=== PATIENT | female | born 1950 | race Caucasian/White ===

== ENCOUNTER 2019-02-16 10:00 | Emergency (ER) | payer MEDICARE, OTHER, SELFPAY ==
[2019-02-16 10:01] VITALS: BP 143/85; PULSE 88; RESP 18; TEMP 36.6; O2SAT 97; BMI 31.4
--- NOTE | 2019-02-16 10:16 | EKG12_ITS ---
Test Reason : AB LABS Blood Pressure : / mmHG Vent. Rate : 071 BPM Atrial Rate : 071 BPM P-R Int : 226 ms QRS Dur : 078 ms QT Int : 402 ms P-R-T Axes : 071 072 065 degrees QTc Int : 436 ms Sinus rhythm with 1st degree A-V block Otherwise normal ECG Confirmed by KAMILA BOLES, RAJINDER ([id number]), photograph editor LOGAN HAIRSTON ([id number]) on 02/19/2019 1:10:05 PM Referred By: QUYNH Confirmed By:RAJINDER TREVIÑO MD
--- NOTE | 2019-02-16 10:16 | CT_ITS ---
STUDY: CTA CHEST REASON FOR EXAM: Female, 68 years old. Pleuritic chest pain, elevated D-dimer, SOB, COPD-Home O2, prev 20 yr smoker at 1 ppd, quite smoking 3 yrs ago RADIATION DOSAGE (If Supplied By Facility): CTDIvol = ( 8.89 ) mGy, DLP = ( 338.08 ) mGycm TECHNIQUE: The examination was performed with the intravenous administration of IV 100mL Isovue-370. Post-processing of the angiographic images was performed, with multiplanar reformation and 3D reconstruction. Individualized dose optimization techniques were used for this CT. COMPARISON: None. FINDINGS: Normal enhancement of the main pulmonary artery and right and left pulmonary arteries. Normal enhancement of the bilateral peripheral pulmonary arteries. There is no demonstrated pulmonary embolism. There is atherosclerotic calcification of the aortic arch with tortuosity. There is no demonstrated aortic dissection. Normal heart and pericardium. There are calcifications of the coronary arteries. Normal mediastinum. Normal hilar regions. Normal visualized trachea and bronchi. Lungs are hyperexpanded with moderately severe bolus emphysema of the right more than left upper lung zones. There is scattered fibrotic changes. Normal pleura. Normal chest wall structures. There are degenerative changes of thoracic spine. There is a small hiatal hernia. CT/CTA Chest W/WO Contrast IMPRESSION: 1. No central or segmental pulmonary embolism. 2. Bullous emphysema with scattered fibrotic changes. 3. Atherosclerosis including coronary arteries. Electronically Signed: Real Pasotr MD (Brooks) at 13:32 EST , Service support ,
--- NOTE | 2019-02-16 10:18 | ED.DCSUM_ITS ---
History of Present Illness Chief Complaint: Abn Labs Informant: Patient, Spouse/S.O. - and pulm care provider Onset: Weeks - 2-3 Activity at onset: Unknown Timing: Continuous Quality: Pain Location: Left Chest Current Severity: Mild Maximum Severity: Moderate Worsened By: Breathing, Coughing - and yawning Relieved By: Rest Associated Symptoms: Dyspnea - wheezing, Cough Narrative: Patient had a COPD exacerbation 1 month ago or more, was treated with Augmentin, came back to the office and was treated with Levaquin, finished that just a little over 2 weeks ago. The Levaquin really helped but that when she finished that she started getting worse and having pleuritic pain in her left upper back and chest. That went away, and then became left chest pleuritic discomfort without radiation that has persisted. She has been having more COPD symptoms with productive cough and wheezing, they have not been severe but present for 2 weeks or more. She has had no more courses of antibiotics since. Yesterday she was seen in the office and had a d-dimer that resulted elevated at 790, even when corrected for age, and for that reason she was sent to the ER for CT angiography which they were unable to obtain today on Tuesday as an outpatient, for fear of pulmonary embolus that would go undetected over the weekend. She has never had one, or a DVT, before. She denies any leg pain. She has had swelling of both her legs chronically, she wears compression stockings, and she states the swelling has been a little worse lately so she started taking her Lasix again. She did not take it yet this morning. Also as an outpatient, a proBNP was obtained and is 219, well within normal limits especially for someone her age. She does not have a history of heart disease that she knows of. She takes daily baby aspirin but no anticoagulants. She denies any recent syncopal episodes. When she has been short of breath, she has been wheezing. Exertion makes it worse, rest makes that better. - Past Medical History (1) COPD (chronic obstructive pulmonary disease) Status: Chronic Comment: 2 L home oxygen (2) HLD (hyperlipidemia) Status: Chronic (3) HTN (hypertension) Status: Chronic Past Medical History - Allergies and Home Meds Allergies/Adverse Reactions: Allergies atorvastatin [From Lipitor] Allergy (Verified 02/16/19 10:03) Unknown lorazepam [From Ativan] Allergy (Verified 02/16/19 10:03) Unknown mometasone furoate [From Nasonex] Allergy (Verified 02/16/19 10:03) Unknown paroxetine [From Paxil] Allergy (Verified 02/16/19 10:03) Unknown Sulfa (Sulfonamide Antibiotics) Allergy (Verified 02/16/19 10:03) Unknown DOES NOT REMEMBER Allergy (Uncoded 02/16/19 10:03) Unknown Primary Care Physician: Phyllis Smith MD [Primary Care Provider] - Doctors: [facility] pulmonology Surgical History: hysterectomy Lives: Spouse/ Significant Other Smoking Status: Former smoker Drugs: None - Family History Maternal Family History: Reports: Cancer Sibling Family History: Reports: Heart Disease Review of Systems General: Denies: Chills, Fever, Sweats Eyes: Denies: Visual changes - bilaterally, Diplopia ENT: Denies: Rhinorrhea, Sore throat Cardiovascular: Reports: Chest pain. Denies: Palpitations, Heart racing Respiratory: Reports: Dyspnea, Cough, Sputum - milky when present, Dyspnea on exertion Gastrointestinal: Denies: Abdominal pain, Nausea, Vomiting, Diarrhea, Melena, Hematochezia Genitourinary: Denies: Dysuria, Hematuria, Frequency Musculoskeletal: Reports: Swelling - BLE, chronic. Denies: Neck pain, Back pain, Extremity Pain Skin: Denies: Rash, Wounds Neurological: Denies: Headache, Weakness, Numbness Physical Exam Vital Signs/Narrative: Vital Signs Temp Pulse Resp BP Pulse Ox 02/16/19 10:01 98 F 88 18 143/85 H 97 Inital Vital Signs reviewed: Yes General: Well nourished, Well developed, No Acute Distress Head: Normocephalic, Atraumatic Eyes: Perrl, EOMI ENT: Moist mucous membranes, No rhinorrhea Neck: Supple, Nontender, No lymphadenopathy, No JVD Cardiovascular: Regular rate, Regular rhythm, No murmurs Respiratory: No distress, CTA bilaterally, Chest nontender Abdomen: Soft, Nontender, Nondistended, Normal bowel sounds Back: Nontender, Normal Inspection Extremities: Nontender, Edema - 2+ BLE to knees; comp stockings in place. Negative for: Calf Tenderness Skin: Normal color, No rash, No Trauma Neurological: Alert, Oriented x3, Cranial nerves II-XII grossly intact, Normal Strength, Normal Sensation Psychological: Normal affect, Normal Mood Diagnostic/Tx/Re-eval Impressions Chest CTA 02/16/19 10:16 IMPRESSION: 1. No central or segmental pulmonary embolism. 2. Bullous emphysema with scattered fibrotic changes. 3. Atherosclerosis including coronary arteries. Electronically Signed: Real Pastor MD (Brooks) at 13:32 EST , Service support , 02/16/19 10:16 CTA Chest W/WO Contrast [CT] Stat Laboratory Results 02/16/19 02/16/19 10:25 10:25 WBC 6.5 RBC 4.22 Hgb 12.9 Hct 37.1 MCV 87.9 MCH 30.6 MCHC 34.8 RDW Std Deviation 41.1 RDW Coeff of Caroline 12.8 Plt Count 281 MPV 9.3 Immature Gran % (Auto) 0.300 Neut % (Auto) 66.4 Lymph % (Auto) 20.2 [place] % (Auto) 9.3 Eos % (Auto) 2.6 Baso % (Auto) 1.2 H Absolute Neuts (auto) 4.3 Absolute Lymphs (auto) 1.32 Nucleated RBC % 0 Sodium 135 L Potassium 2.9 L Chloride 96 L Carbon Dioxide 35.0 H Anion Gap 4 L BUN 14 Creatinine 0.94 Estim Creat Clear Calc 48.78 Est GFR (MDRD) Af Amer 76 Est GFR (MDRD) Non-Af 62 BUN/Creatinine Ratio 14.8 Glucose 105 Calcium 9.6 Troponin I < 0.015 - Rhythm Strip Rhythm Strip: Sinus Rhythm Rate: 70 Ectopy: None - EKG Initial EKG Interpretation: Sinus Rhythm, No Acute Injury Pattern, AV Block - 1st deg Prior: Changed - 1st deg AVB new - Medical Decision Making CT angiography was performed and showed no central pulmonary embolus. Discussed with pulmonary PA who patient follows with as an outpatient, they will send in prescriptions for antibiotics and prednisone and follow-up with the patient as an outpatient. She is comfortable with this plan, her vital signs are stable she is not hypoxic, and will follow-up. No signs or symptoms of an acute unilateral DVT at this time. If outpatient duplex ultrasounds are desired, they may be obtained as an outpatient. ED Disposition - Plan for ED Patient: Disposition: Home or Assisted Living Diagnosis: Left-sided chest pain, COPD with exacerbation Instructions: Copd Flare Referrals: Rick Barth MD [NON-STAFF] - (call for follow up)
[2019-02-16 10:29] VITALS: O2SAT 97
[2019-02-16 10:42] LABS: Absolute Lymphocyte Count 1.32 X10^3/uL (0.83-4.51); Absolute Neutrophil Count 4.3 X10^3/uL (2.0-7.7); Basophil# 0.08 X10^3/uL; Basophil% 1.2 % (0-1); Eosinophil# 0.17 X10^3/uL; Eosinophils% 2.6 % (0-5); Hematocrit 37.1 % (37-47); Hemoglobin 12.9 g/dL (12.0-15.0); Lymphocyte # 1.32 X10^3/ul (4.0); Lymphocyte % 20.2 % (19-41); Mean Corp Hgb Conc 34.8 g/dL (32-36); Mean Corpuscular Hgb 30.6 pg (27.0-32.0); Mean Corpuscular Volume 87.9 fL (81-99); Mean Platelet Vol. 9.3 fl (6.2-12.0); Monocyte# 0.61 X10^3/uL; Monocyte% 9.3 % (0-10); NRBC Flagged by Analyzer 0 % (0-5); Neutrophil # 4.33 X10^3/uL (2.7-7.7); Neutrophil % 66.4 % (47-70); Platelet Count 281 K/mm3 (150-450); RBC Distribution Width CV 12.8 % (11.6-14.6); RBC Distribution Width SD 41.1 fl (35.1-43.9); Red Blood Count 4.22 M/mm3 (4.2-5.4); White Blood Count 6.5 K/mm3 (4.4-11.0)
[2019-02-16 11:00] LABS: Anion Gap 4 (5-15); BUN 14 mg/dL (7-18); BUN/Creat Ratio 14.8 RATIO (10-20); Calcium,Total 9.6 mg/dL (8.5-10.1); Chloride 96 mmol/L (98-107); Creatinine, Serum 0.94 mg/dL (0.55-1.02); EST Glomerular Filtration Rate 62 mL/min (>60); Est Glom Filt Rate - Afr Amer 76 mL/min (>60); Estimated Creatinine Clearance 48.78 ml/min; Glucose 105 mg/dL (74-106); Potassium 2.9 mmol/L (3.5-5.1); Sodium Level 135 mmol/L (136-145)
[2019-02-16 11:03] VITALS: BP 135/63; PULSE 74; RESP 20; TEMP 36.9; O2SAT 94
[2019-02-16 12:03] VITALS: BP 128/60; PULSE 69; RESP 19; TEMP 36.8; O2SAT 94
[2019-02-16 13:00] VITALS: BP 138/66; PULSE 71; RESP 13; TEMP 36.9; O2SAT 96
[2019-02-16 14:17] VITALS: BP 128/63; PULSE 63; RESP 16; O2SAT 98
== END 2019-02-16 14:18 | disposition home or self-care (01) ==
PROVIDERS: Emergency Provider Emergency Medicine; Family Provider Internal Medicine; PCP Internal Medicine
DX: J44.1 Chronic obstructive pulmonary disease with (acute) exacerbation (principal); E78.5 Hyperlipidemia, unspecified; I10 Essential (primary) hypertension; Z79.82 Long term (current) use of aspirin; Z82.49 Family history of ischemic heart disease and other diseases of the circulatory system; Z87.891 Personal history of nicotine dependence; Z88.2 Allergy status to sulfonamides; Z90.710 Acquired absence of both cervix and uterus
CPT/HCPCS: 71275; 80048; 84484; 85025; 93005; 96360; 96361; 99283; J7030; Q9967; A4216

== ENCOUNTER 2020-04-17 12:08 | Outpatient (RCR) | payer MEDICARE, OTHER, SELFPAY ==
[2020-04-17] MEDS: COVID-19 VACC, MRNA(PFIZER)/PF 30 MCG/0.3 ML SYRINGE IM (18:30)
[2020-05-08] MEDS: COVID-19 VACC, MRNA(PFIZER)/PF 30 MCG/0.3 ML SYRINGE IM (18:05)
== END 2020-04-17 23:59 ==
LOC: IMMUN 12:08
PROVIDERS: PCP Internal Medicine; Visit Provider Family Medicine
DX: Z23 Encounter for immunization (principal)
CPT/HCPCS: 0001A; 0002A; 91300

== ENCOUNTER 2020-05-19 20:10 | Observation (INO) | payer MEDICARE, OTHER, SELFPAY ==
[2020-05-19 20:11] VITALS: BP 128/57; PULSE 42; RESP 18; TEMP 36.4; O2SAT 99; BMI 30.9
--- NOTE | 2020-05-19 20:48 | EKG12_ITS ---
Test Reason : BEENA Blood Pressure : / mmHG Vent. Rate : 046 BPM Atrial Rate : 057 BPM P-R Int : 000 ms QRS Dur : 070 ms QT Int : 450 ms P-R-T Axes : 000 091 071 degrees QTc Int : 393 ms Sinus Bradycardia Rightward axis Low voltage QRS Abnormal ECG Confirmed by PERRI BOLES, SOTERO ([id number]), digital editor BILLIE ACEVEDO ([id number]) on 05/23/2020 2:47:18 PM Referred By: RETA Confirmed By:TARSHA RAYO MD
--- NOTE | 2020-05-19 20:53 | ED.VIS.GEN ---
History of Present Illness Chief Complaint: Dizziness Informant: Patient Narrative: 69-year-old female presenting with chest heaviness in the left shoulder and her upper back. She states this started this evening about dinnertime when she was sitting at the table. Patient states she had similar symptoms when she had her first COVID-19 shot on . Used symptoms returned again on the . They have been intermittent since that time. She states that she feels lightheaded when she stands. She has not had a fall. She has had this chest heaviness on and off when she gets palpitations and lightheadedness. Patient denies previous history of MT or cardiac problems. Patient had fever, chills, cough. She does not have history of DVT/PE. She recently had CTA of the chest to rule out PE in February because she had an elevated D-dimer outpatient. Not anticoagulated. Past Medical History - Allergies and Home Meds Allergies/Adverse Reactions: Allergies atorvastatin [From Lipitor] Allergy (Verified 05/19/20 20:11) Unknown lorazepam [From Ativan] Allergy (Verified 05/19/20 20:11) Unknown mometasone furoate [From Nasonex] Allergy (Verified 05/19/20 20:11) Unknown paroxetine [From Paxil] Allergy (Verified 05/19/20 20:11) Unknown Sulfa (Sulfonamide Antibiotics) Allergy (Verified 05/19/20 20:11) Unknown DOES NOT REMEMBER Allergy (Uncoded 05/19/20 20:11) Unknown Primary Care Physician: Phyllis Smith MD [Primary Care Provider] - Prior records reviewed: Yes Past Medical History: - - Prediabetes, hypertension, COPD, hyperlipidemia Surgical History: hysterectomy Lives: Spouse/ Significant Other Smoking Status: Former smoker Alcohol: None Drugs: None - Family History Maternal Family History: Reports: Cancer Sibling Family History: Reports: Heart Disease Review of Systems General: Denies: Chills, Fever, Sweats Eyes: Denies: Visual changes - bilaterally, Diplopia ENT: Denies: Rhinorrhea, Sore throat Cardiovascular: Reports: Chest pain, Palpitations Respiratory: Denies: Dyspnea, Cough, Dyspnea on exertion Gastrointestinal: Denies: Abdominal pain, Nausea, Vomiting, Diarrhea, Melena, Hematochezia Genitourinary: Denies: Dysuria, Hematuria, Frequency Musculoskeletal: Denies: Back pain, Extremity Pain Skin: Denies: Rash, Wounds Neurological: Denies: Headache, Weakness, Numbness Psych: Denies: Depression, Anxiety, Suicidal thoughts, Suicidal ideations, -, - Endocrine: Denies: Polyuria, Polydipsia, Heat intolerance, Cold intolerance, -, - Physical Exam Vital Signs/Narrative: Vital Signs Temp Pulse Resp BP Pulse Ox 05/19/20 20:11 97.6 F L 42 L 18 128/57 H 99 Inital Vital Signs reviewed: Yes General: Well nourished, No Acute Distress Head: Normocephalic, Atraumatic Eyes: Perrl, EOMI ENT: Moist mucous membranes, No rhinorrhea Cardiovascular: Bradycardia Respiratory: No distress, CTA bilaterally Abdomen: Soft, Nontender Extremities: Nontender. Negative for: Calf Tenderness Skin: Normal color, No rash. Negative for: Cyanosis, Diaphoresis Neurological: Alert, Oriented x3, Cranial nerves II-XII grossly intact Psychological: Normal affect, Normal Mood Diagnostic/Tx/Re-eval Clinical Impression(s) from Imaging Studies Chest X-Ray 05/19/20 20:54 IMPRESSION: No acute radiographic abnormalities. Emphysematous changes. Electronically Signed: Cosme Ewing MD at 21:14 EDT Tel , Service support , Laboratory Data 05/19/20 05/19/20 05/19/20 20:30 20:30 20:30 WBC 11.6 H RBC 4.57 Hgb 14.0 Hct 41.1 MCV 89.9 MCH 30.6 MCHC 34.1 RDW Std Deviation 42.4 RDW Coeff of Caroline 12.8 Plt Count 273 MPV 9.8 Immature Gran % (Auto) 0.300 Neut % (Auto) 61.1 Lymph % (Auto) 25.8 [place] % (Auto) 8.6 Eos % (Auto) 3.1 Baso % (Auto) 1.1 H Absolute Neuts (auto) 7.1 Absolute Lymphs (auto) 2.99 Nucleated RBC % 0 Sodium 130 L Potassium 4.4 Chloride 97 L Carbon Dioxide 27.0 Anion Gap 6 BUN 29 H Creatinine 1.18 H Estim Creat Clear Calc 38.31 Est GFR (MDRD) Af Amer 58 L Est GFR (MDRD) Non-Af 48 L BUN/Creatinine Ratio 24.6 H Glucose 169 H Calcium 9.5 Magnesium 2.1 Troponin I < 0.015 B-Natriuretic Peptide 197.5 H - Medical Decision Making 69-year-old female presenting with palpitations. She states that these palpitations seem to correlate with the timing of her COVID-19 shots. She is not had this problem in the past. She has had some chest pressure associated with the symptoms. Patient had CTA in February which showed some coronary artery atherosclerosis but no PEs or dissections. She has a history of DVT/PE. I have low suspicion for this now. Patient's EKG performed on arrival shows a junctional rhythm at [address] elevation or depression interpreted by myself. Chest x-ray shows no acute cardiopulmonary process as interpreted by myself. Radiology does agree. White blood cell count 11.6, hemoglobin 14, platelets 273. BMP shows sodium 130, potassium 4.4, CO2 27, creatinine 1.18 is increased from February when it was 0.94, GFR 48 and was 62 in February. Magnesium 2.1. Troponin is negative. BNP 197 with normal chest x-ray. Patient's heart score is 6. Given this I think the patient needs to be admitted for her chest pain. She also has a junctional rhythm, palpitations and lightheadedness. I spoke with Dr. Ayala who recommended keeping the patient off of her metoprolol and Cardizem and see if this changes her vision and he will determine the course tomorrow. Patient took her metoprolol tonight however she took her Cardizem and HCTZ yesterday morning. If it is medication induced it should clear by tomorrow. Patient counseled on findings and course of action. She is comfortable with staying in the hospital. Patient stable on admission. Impression: 1. Junctional heart rhythm 2. Chest pain 3. Lightheadedness ED Disposition - Plan for ED Patient: Referrals: Phyllis Smith MD [Primary Care Provider] -
--- NOTE | 2020-05-19 20:54 | RAD_ITS ---
INDICATION: chest pain EXAMINATION/TECHNIQUE: X-RAY - XR Chest 1 View COMPARISON: 12/16/2016. FINDINGS: Emphysematous changes. Lungs are otherwise clear. Tortuous and calcified thoracic aorta. The heart is not enlarged. No pleural effusion or pneumothorax. No acute osseous abnormalities. RAD/Chest 1 View (Portable) IMPRESSION: No acute radiographic abnormalities. Emphysematous changes. Electronically Signed: Cosme Ewing MD at 21:14 EDT Tel , Service support ,
[2020-05-19 20:58] LABS: Absolute Lymphocyte Count 2.99 X10^3/uL (0.83-4.51); Absolute Neutrophil Count 7.1 X10^3/uL (2.0-7.7); Basophil# 0.13 X10^3/uL; Basophil% 1.1 % (0-1); Eosinophil# 0.36 X10^3/uL; Eosinophils% 3.1 % (0-5); Hematocrit 41.1 % (37-47); Lymphocyte # 2.99 X10^3/ul (4.0); Lymphocyte % 25.8 % (19-41); Mean Corp Hgb Conc 34.1 g/dL (32-36); Mean Corpuscular Hgb 30.6 pg (27.0-32.0); Mean Corpuscular Volume 89.9 fL (81-99); Mean Platelet Vol. 9.8 fl (6.2-12.0); Monocyte% 8.6 % (0-10); NRBC Flagged by Analyzer 0 % (0-5); Neutrophil # 7.07 X10^3/uL (2.7-7.7); Neutrophil % 61.1 % (47-70); Platelet Count 273 K/mm3 (150-450); RBC Distribution Width CV 12.8 % (11.6-14.6); RBC Distribution Width SD 42.4 fl (35.1-43.9); Red Blood Count 4.57 M/mm3 (4.2-5.4); White Blood Count 11.6 K/mm3 (4.4-11.0)
[2020-05-19] MEDS: Aspirin 81 MG TAB.CHEW 324 MG PO (21:00)
[2020-05-19 21:18] LABS: Anion Gap 6 (5-15); BNP,B-Type NATRIURETIC PEPTIDE 197.5 pg/mL (0-100); BUN 29 mg/dL (7-18); BUN/Creat Ratio 24.6 RATIO (10-20); Calcium,Total 9.5 mg/dL (8.5-10.1); Chloride 97 mmol/L (98-107); Creatinine, Serum 1.18 mg/dL (0.55-1.02); EST Glomerular Filtration Rate 48 mL/min (>60); Est Glom Filt Rate - Afr Amer 58 mL/min (>60); Estimated Creatinine Clearance 38.31 ml/min; Glucose 169 mg/dL (74-106); Magnesium 2.1 mg/dL (1.6-2.6); Potassium 4.4 mmol/L (3.5-5.1); Sodium Level 130 mmol/L (136-145)
[2020-05-19 22:01] VITALS: BP 128/94; PULSE 51; RESP 24; TEMP 36.4; O2SAT 96
[2020-05-19 22:15] VITALS: BP 113/67; PULSE 48; RESP 16; TEMP 36.4; O2SAT 92; BMI 32.7
--- NOTE | 2020-05-19 22:17 | PCM.HP.STD ---
<Megan Barger - Last Filed: 05/19/20 22:17> Problem List (1) Bradycardia with 41-50 beats per minute Status: Acute (2) Chest pain in adult Status: Acute (3) COPD (chronic obstructive pulmonary disease) Status: Chronic Comment: 2 L home oxygen (4) HLD (hyperlipidemia) Status: Chronic (5) HTN (hypertension) Status: Chronic History of Present Illness Date of Admission: 05/19/20 Chief Complaint: chest pain, symptomatic bradycardia The patient is a 69 year old F presents today with report of chest pressure and tightness through left chest and back and palpitations that began this evening. Patient reports similar symptoms following both of her Covid shots, with the most recent Covid injection May 12. Upon presentation to ER patient was noted to have a junctional rhythm with a heart rate of 42 with frequent ectopy. Patient has a reported medical history of hypertension, hyperlipidemia, COPD. Patient wears 2 L nasal cannula oxygen at home and currently does not have any increased O2 requirements. Patient denies fever, chills, shortness of breath, nausea, vomiting. No acute cardiopulmonary process noted on chest x-ray. Troponin is negative BNP 197 with normal chest x-ray. Heart score 6, STEFANI score 4. Patient currently resting comfortably in bed, states chest pressure is unchanged at this time. Past Medical History Past Medical History (Chronic Problems): Chronic Problems COPD (chronic obstructive pulmonary disease) (Chronic) 2 L home oxygen HLD (hyperlipidemia) (Chronic) HTN (hypertension) (Chronic) Allergies atorvastatin [From Lipitor] Allergy (Verified 05/19/20 20:11) Unknown lorazepam [From Ativan] Allergy (Verified 05/19/20 20:11) Unknown mometasone furoate [From Nasonex] Allergy (Verified 05/19/20 20:11) Unknown paroxetine [From Paxil] Allergy (Verified 05/19/20 20:11) Unknown Sulfa (Sulfonamide Antibiotics) Allergy (Verified 05/19/20 20:11) Unknown DOES NOT REMEMBER Allergy (Uncoded 05/19/20 20:11) Unknown Home Medications: Ambulatory Orders Medication Instructions Recorded Albuterol Aerosols [Ventolin 2.5 mg INHALATION Q6H PRN PRN 12/16/16 Aerosols] Aspirin [Aspirin, Baby] 81 mg PO DAILY@0800 12/16/16 Calcium Carbonate/Vitamin D3 1 each PO BID 12/16/16 [Calcium 500+D Tablet Chew] D-Methorphan/PE/Acetaminophen 1 each PO DAILY PRN 12/16/16 [Trudy-[place] Plus Sinus-Cough] Diltiazem HCl [Diltiazem 24Hr Cd] 240 mg PO DAILY 12/16/16 Hydrochlorothiazide [Hctz] 25 mg PO DAILY 12/16/16 Ipratropium [place] 0.06% 2 spray NASAL 4X/DAY 12/16/16 [ATROVENT NASAL SPRAY] Metoprolol Tartrate [Lopressor 50 mg PO BID 12/16/16 (beta kayley)] Multivit-Min/Iron/Folic/Lutein 1 each PO DAILY 12/16/16 [Centrum Silver Women Tablet] Simvastatin [Zocor] 20 mg PO QHS 12/16/16 Acetaminophen [Tylenol Tablet] 650 mg PO Q6H PRN PRN tablet 12/18/16 Guaifenesin [Mucinex] 1,200 mg PO BID #10 tablet 12/18/16 Albuterol Sulfate [Ventolin Hfa] 90 mcg IH Q4H PRN PRN 02/16/19 Cetirizine HCl [Zyrtec] 10 mg PO DAILY 02/16/19 Fluticasone/Umeclidin/Vilanter 1 ea IH DAILY 02/16/19 [Trelegy Ellipta 100-62.5-25] Furosemide [Lasix] 20 mg PO DAILY PRN 02/16/19 Montelukast [Singulair] 10 mg PO DAILY 02/16/19 Potassium Chloride 8 meq PO DAILY 02/16/19 Surgical History: hysterectomy, - - Left hand surgery, lumpectomy left breast noncancerous 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 Denies: Chest Pain Respiratory: Denies: Cough, Shortness of breath at rest, Sputum production Gastrointestinal: Denies: Abdominal Pain, Nausea, Vomiting Genitourinary: Denies: Dysuria Musculoskeletal: Denies: Joint Pain, Joint Tenderness Skin: Denies: Rash, Wounds Neurological: Denies: Numbness, Tingling, Focal weakness Psychiatric: Denies: Anxiety, Depression, Homicidal Ideations, Suicidal Ideations Hematologic/ Lymphatic: Denies: Easy Bruising, Easy Bleeding VTE Information - Inpt Only VTE Present on Admission: No VTE Mechan Device Prophylaxis: None VTE Pharm Prophylaxis ordered?: No Reason prophylaxis not ordered:: Treatment Not Indicated - Physical Exam Vitals/I&O's: Vital Signs Temp Pulse Resp BP Pulse Ox 97.6 F L 51 L 24 H 128/94 H 96 05/19/20 22:01 05/19/20 22:01 05/19/20 22:01 05/19/20 22:01 05/19/20 22:01 Oxygen Flow Rate (L/min) 2 Oxygen Delivery Method Nasal Cannula Weight: 180 lb Body Mass Index (BMI) 30.9 General: Alert, Oriented x3, Cooperative HEENT: Atraumatic, PERRLA, EOMI, Normocephalic Neck: Supple, No JVD, Negative Carotid Bruits Lungs: Clear to auscultation, Normal air movement, Diminished Cardiovascular: No murmurs, Bradycardic - Junctional with ectopy Abdomen: Bowel Sounds Present, Soft, Non Tender Extremities: No edema, Capillary Refill Less than 3 Seconds, Peripheral Pulses Normal Skin: No rashes, No breakdown Musculoskeletal: No Tenderness to Palpation of Joints or Extremities Neurological: Cranial nerves II-XII grossly intact Psych/Mental Status: Normal Affect, Appropriate Laboratory Results 05/19/20 20:30: WBC 11.6 H, RBC 4.57, Hgb 14.0, Hct 41.1, MCV 89.9, MCH 30.6, MCHC 34.1, RDW Std Deviation 42.4, RDW Coeff of Caroline 12.8, Plt Count 273, MPV 9.8, Immature Gran % (Auto) 0.300, Neut % (Auto) 61.1, Lymph % (Auto) 25.8, Casey % (Auto) 8.6, Eos % (Auto) 3.1, Baso % (Auto) 1.1 H, Absolute Neuts (auto) 7.1, Absolute Lymphs (auto) 2.99, Nucleated RBC % 0 05/19/20 20:30: Sodium 130 L, Potassium 4.4, Chloride 97 L, Carbon Dioxide 27.0, Anion Gap 6, BUN 29 H, Creatinine 1.18 H, Estim Creat Clear Calc 38.31, Est GFR (MDRD) Af Amer 58 L, Est GFR (MDRD) Non-Af 48 L, BUN/Creatinine Ratio 24.6 H, Glucose 169 H, Calcium 9.5, Magnesium 2.1, Troponin I < 0.015 05/19/20 20:30: B-Natriuretic Peptide 197.5 H Assessment/Plan All Active Problems Bradycardia with 41-50 beats per minute (Acute) Chest pain in adult (Acute) COPD with acute exacerbation (Acute) 1. Bradycardia with junctional rhythm -Admit to PCU for cardiac monitoring. -Hold metoprolol and Cardizem overnight. -Trend cardiac enzymes overnight. -Consult cardiology, will see in morning. -Mag, Phos, and TSH ordered. 2. Hypertension -Continue Lasix and hydrochlorothiazide. -Hold Cardizem and metoprolol overnight per cardiology. -Vital signs per protocol, stable at this time. 3. Hyperlipidemia -Continue simvastatin. 4. COPD -Continue home regimen of albuterol, cetirizine, ipratropium, montelukast. -Continue home O2 at 2 L, titrate per protocol to maintain pulse ox greater than 92%. DVT prophylaxis-not indicated This patient was seen by VIDHI Bautista under the supervision of Dr. Shabazz. <Joshua Shabazz - Last Filed: 05/19/20 22:40> History of Present Illness The patient is a 69 year old F [] Past Medical History Allergies atorvastatin [From Lipitor] Allergy (Verified 05/19/20 22:39) Unknown lorazepam [From Ativan] Allergy (Verified 05/19/20 22:39) Unknown mometasone furoate [From Nasonex] Allergy (Verified 05/19/20 22:39) Unknown paroxetine [From Paxil] Allergy (Verified 05/19/20 22:39) Unknown Sulfa (Sulfonamide Antibiotics) Allergy (Verified 05/19/20 22:39) Unknown DOES NOT REMEMBER Allergy (Uncoded 05/19/20 20:11) Unknown - Physical Exam Vitals/I&O's: Vital Signs Temp Pulse Resp BP Pulse Ox 97.5 F L 48 L 16 113/67 92 05/19/20 22:15 05/19/20 22:15 05/19/20 22:15 05/19/20 22:15 05/19/20 22:15 Oxygen Flow Rate (L/min) 2 Oxygen Delivery Method Nasal Cannula Weight: 190 lb 7.67 oz Body Mass Index (BMI) 32.7 Laboratory Results 05/19/20 20:30: WBC 11.6 H, RBC 4.57, Hgb 14.0, Hct 41.1, MCV 89.9, MCH 30.6, MCHC 34.1, RDW Std Deviation 42.4, RDW Coeff of Caroline 12.8, Plt Count 273, MPV 9.8, Immature Gran % (Auto) 0.300, Neut % (Auto) 61.1, Lymph % (Auto) 25.8, Casey % (Auto) 8.6, Eos % (Auto) 3.1, Baso % (Auto) 1.1 H, Absolute Neuts (auto) 7.1, Absolute Lymphs (auto) 2.99, Nucleated RBC % 0 05/19/20 20:30: Sodium 130 L, Potassium 4.4, Chloride 97 L, Carbon Dioxide 27.0, Anion Gap 6, BUN 29 H, Creatinine 1.18 H, Estim Creat Clear Calc 38.31, Est GFR (MDRD) Af Amer 58 L, Est GFR (MDRD) Non-Af 48 L, BUN/Creatinine Ratio 24.6 H, Glucose 169 H, Calcium 9.5, Magnesium 2.1, Troponin I < 0.015 05/19/20 20:30: B-Natriuretic Peptide 197.5 H 05/19/20 20:30: Phosphorus Pending Current Medications Acetaminophen (Acetaminophen 325 Mg Tablet) 650 mg PO Q6H PRN PRN PRN Reason: Pain Score 1-10/Temp > 100.7 F Albuterol Sulfate (Albuterol 2.5 Mg/3 Ml Vial.Neb.) 2.5 mg INHALATION Q2H PRN PRN PRN Reason: SOB/Wheezing Aspirin (Aspirin 81 Mg Tab.Chew) 81 mg PO DAILY@0800 MARI Calcium/Vitamin D (Calcium Carb/Vitamin D 1 Tablet Tablet) 1 tablet PO BID MARI Furosemide (Furosemide 20 Mg Tablet) 20 mg PO DAILY PRN PRN PRN Reason: EDEMA Guaifenesin (Guaifenesin 1,200 Mg Tablet) 1,200 mg PO BID MARI Hydrochlorothiazide (Hydrochlorothiazide 25 Mg Tablet) 25 mg PO DAILY [facility] Sodium Chloride () 1,000 mls @ 75 mls/hr IV .[id number] MARI Stop: 05/20/20 11:46 Insulin Human Lispro (Insulin Lispro 100 Unit/Ml Insuln.Pen) 0 unit SC ACHS MARI; Protocol Ipratropium [place] (Ipratropium [place] 0.06% Nasal [place]) 2 spray NASAL 4X/DAY MARI Loratadine (Loratadine 10 Mg Tablet) 10 mg PO DAILY MARI Melatonin (Melatonin 3 Mg Tablet) 3 mg PO QHS PRN PRN PRN Reason: INSOMNIA Montelukast Sodium (Montelukast 10 Mg Tablet) 10 mg PO DAILY MARI Morphine Sulfate (Morphine 2 Mg/Ml Syringe) 2 mg IV Q3H PRN PRN PRN Reason: Pain Score 6-10 Multivitamins/Minerals (Multivitamins,Ther W-Minerals Tablet) 1 tablet PO DAILYCM [facility] Nitroglycerin (Nitroglycerin (Inpatient Use) 0.4 Mg Tab.Subl) 0.4 mg SL Q5M PRN PRN Reason: CARDIAC/CHEST PAIN Non-Formulary Medication (Simvastatin) 20 mg PO QHS [facility] Ondansetron HCl (Ondansetron 4 Mg/2 Ml Vial) 4 mg IV Q8H PRN PRN PRN Reason: NAUSEA/VOMITING Potassium Chloride (Potassium Chloride Oral Tablet 10 Meq) 10 meq PO DAILYCM [facility] Sodium Chloride (0.9% Saline Lock 10 Ml Syringe) 10 - 40 ml IV UD PRN PRN Reason: SALINE FLUSH Assessment/Plan Patient seen and examined independently and agree with above assessment and plan
--- NOTE | 2020-05-19 22:27 | EKG12_ITS ---
Test Reason : CP ADMISSION Blood Pressure : / mmHG Vent. Rate : 053 BPM Atrial Rate : 053 BPM P-R Int : 162 ms QRS Dur : 076 ms QT Int : 460 ms P-R-T Axes : 050 084 074 degrees QTc Int : 431 ms Sinus bradycardia with Premature atrial complexes in a pattern of bigeminy Otherwise normal ECG When compared with ECG of 16-FEB-2019 10:44, Premature atrial complexes are now Present OK interval has decreased Confirmed by KAMILA BOLES, RAJINDER ([id number]), editor newspaper BILLIE ACEVEDO ([id number]) on 05/23/2020 3:06:40 PM Referred By: AZUL Confirmed By:RAJINDER TREVIÑO MD
[2020-05-19 22:28] VITALS: BMI 32.7
[2020-05-19 22:38] VITALS: PULSE 52
[2020-05-19 22:50] VITALS: O2SAT 94
[2020-05-19 22:51] LABS: Bedside Glucose 128 mg/dL (70-110)
[2020-05-19 23:01] LABS: Phosphorus 3.8 mg/dL (2.5-4.9)
[2020-05-19] MEDS: 0.9% Normal Saline 1,000 ML 75 ML IV (23:15)
[2020-05-20] VITALS (7 sets, daily range): BP systolic 144–153; BP diastolic 69–74; PULSE 69–98; RESP 16–18; TEMP 36.6–36.8; O2SAT 93–98
[2020-05-20 00:24] LABS: Magnesium 2.2 mg/dL (1.6-2.6); Thyroid Stim Hormone (TSH) 1.84 uIU/mL (0.358-3.74)
[2020-05-20 02:57] LABS: Absolute Lymphocyte Count 1.75 X10^3/uL (0.83-4.51); Absolute Neutrophil Count 5.7 X10^3/uL (2.0-7.7); Basophil# 0.08 X10^3/uL; Eosinophils% 2.4 % (0-5); Hematocrit 40.2 % (37-47); Hemoglobin 13.4 g/dL (12.0-15.0); Lymphocyte # 1.75 X10^3/ul (4.0); Lymphocyte % 20.9 % (19-41); Mean Corp Hgb Conc 33.3 g/dL (32-36); Mean Corpuscular Hgb 30.2 pg (27.0-32.0); Mean Corpuscular Volume 90.7 fL (81-99); Mean Platelet Vol. 9.7 fl (6.2-12.0); Monocyte# 0.62 X10^3/uL; Monocyte% 7.4 % (0-10); NRBC Flagged by Analyzer 0 % (0-5); Neutrophil # 5.72 X10^3/uL (2.7-7.7); Neutrophil % 68.1 % (47-70); Platelet Count 255 K/mm3 (150-450); RBC Distribution Width CV 12.9 % (11.6-14.6); Red Blood Count 4.43 M/mm3 (4.2-5.4); White Blood Count 8.4 K/mm3 (4.4-11.0)
[2020-05-20 03:19] LABS: Anion Gap 2 (5-15); BUN 28 mg/dL (7-18); BUN/Creat Ratio 30.1 RATIO (10-20); Calcium,Total 9.4 mg/dL (8.5-10.1); Chloride 100 mmol/L (98-107); Creatinine, Serum 0.93 mg/dL (0.55-1.02); EST Glomerular Filtration Rate 63 mL/min (>60); Est Glom Filt Rate - Afr Amer 77 mL/min (>60); Estimated Creatinine Clearance 48.61 ml/min; Glucose 124 mg/dL (74-106); Sodium Level 131 mmol/L (136-145)
[2020-05-20 06:30] LABS: Bedside Glucose 103 mg/dL (70-110)
--- NOTE | 2020-05-20 08:26 | ECHOCS_ITS ---
Version 2 Reason For Study: Arrhythmia Procedure This was a 2D Doppler, Color Flow transthoracic echocardiogram. The study was technically difficult. Contrast injection was performed. Exam performed portable in patient room. Left Ventricle Normal LV size. Left ventricular systolic function is normal. The estimated ejection fraction is 65 %. Stage 1 diastolic dysfunction. No regional wall motion abnormalities noted. Right Ventricle Normal RV size. Normal systolic function. Atria Normal left atrium. Normal right atrium. Mitral Valve Mitral valve not well visualized. Tricuspid Valve Normal tricuspid valve. Aortic Valve The aortic valve is not well visualized. Pulmonic Valve The pulmonic valve is not well visualized. Great Vessels Normal aortic root. The pulmonary artery is normal size. Normal inferior vena cava. Pericardium/Pleural No pericardial effusion. Medication Diluted definity 4ml given slow IV push to enhance endocardial definition. MMode/2D Measurements & Calculations LVIDd: 3.3 cm IVSd: 1.0 cm LA dimension: 3.1 cm LVIDs: 2.2 cm LVPWd: 1.1 cm FS: 34.9 % LAV(MOD-bp): 64.6 ml LA A4 area: 21.6 cm2 LAV(MOD-bp) Indexed: 34.5 ml/m2 LAV(MOD-sp2): 56.7 ml LAV(MOD-sp4): 62.8 ml Time Measurements MV dec time: 0.25 sec Doppler Measurements & Calculations MV E max lucio: 88.0 cm/sec Lat Peak E' Lucio: 9.7 cm/sec Med Peak E' Lucio: 9.7 cm/sec MV A max lucio: 118.1 cm/sec E/E' lat: 9.1 E/E' med: 9.0 MV E/A: 0.74 MV V2 max: 120.4 cm/sec MV P1/2t max lucio: 103.0 cm/sec Ao V2 max: 129.0 cm/sec MV max P.8 mmHg MV P1/2t: 62.5 msec Ao max P.7 mmHg MV V2 mean: 76.9 cm/sec MV dec slope: 483.1 cm/sec2 MV mean P.7 mmHg MV V2 VTI: 31.2 cm MVA(P1/2t): 3.5 cm2 LV V1 max: 120.7 cm/sec PA V2 max: 122.3 cm/sec LV V1 max P.8 mmHg ECHO/Echo Complete W/ Contrast Interpretation Summary Normal LV size. Left ventricular systolic function is normal. The estimated ejection fraction is 65 %. Stage 1 diastolic dysfunction. Contrast injection was performed. Ordering Physician: Ryan Ayala Referring Physician: Phyllis Smith M.D. Performed By: Jeffery Huang RCS
--- NOTE | 2020-05-20 08:29 | CON.PCM_ITS ---
Reason for Consult Date of Consultation: 05/20/20 Reason for Consultation: Dizziness and slow heart rate History of Present Illness: The patient is a 69 year old F who presented to the emergency room with chest pressure and tightness as well as palpitations and dizziness. The patient reports that these episodes happened after her Covid shot. She also has a history of hypertension, hyperlipidemia, and obstructive lung disease. She denies any padmini syncopal episodes. She presented to the emergency room an EKG was done which demonstrated sinus bradycardia with periods of junctional rhythm. I was called for further evaluation and management. She has had no exertional chest discomfort. Her troponin enzymes were noted to be normal and her natruretic peptide was mildly elevated. This morning she is doing much better her heart rate is improved after we held the beta-kayley and the diltiazem. [] Past Medical History Allergies/Adverse Reactions: Allergies atorvastatin [From Lipitor] Allergy (Verified 05/19/20 22:39) Unknown lorazepam [From Ativan] Allergy (Verified 05/19/20 22:39) Unknown mometasone furoate [From Nasonex] Allergy (Verified 05/19/20 22:39) Unknown paroxetine [From Paxil] Allergy (Verified 05/19/20 22:39) Unknown Sulfa (Sulfonamide Antibiotics) Allergy (Verified 05/19/20 22:39) Unknown DOES NOT REMEMBER Allergy (Uncoded 05/19/20 20:11) Unknown Home Medications: Ambulatory Orders Medication Instructions Recorded Albuterol Aerosols [Ventolin 2.5 mg INHALATION Q6H PRN PRN 12/16/16 Aerosols] Aspirin [Aspirin, Baby] 81 mg PO DAILY@0800 12/16/16 Calcium Carbonate/Vitamin D3 1 each PO BID 12/16/16 [Calcium 500+D Tablet Chew] D-Methorphan/PE/Acetaminophen 1 each PO DAILY PRN 12/16/16 [Trudy-[place] Plus Sinus-Cough] Diltiazem HCl [Diltiazem 24Hr Cd] 240 mg PO DAILY 12/16/16 Hydrochlorothiazide [Hctz] 25 mg PO DAILY 12/16/16 Ipratropium [place] 0.06% 2 spray NASAL 4X/DAY 12/16/16 [ATROVENT NASAL SPRAY] Metoprolol Tartrate [Lopressor 50 mg PO BID 12/16/16 (beta kayley)] Multivit-Min/Iron/Folic/Lutein 1 each PO DAILY 12/16/16 [Centrum Silver Women Tablet] Simvastatin [Zocor] 20 mg PO QHS 12/16/16 Acetaminophen [Tylenol Tablet] 650 mg PO Q6H PRN PRN tablet 12/18/16 Guaifenesin [Mucinex] 1,200 mg PO BID #10 tablet 12/18/16 Albuterol Sulfate [Ventolin Hfa] 90 mcg IH Q4H PRN PRN 02/16/19 Cetirizine HCl [Zyrtec] 10 mg PO DAILY 02/16/19 Fluticasone/Umeclidin/Vilanter 1 ea IH DAILY 02/16/19 [Trelegy Ellipta 100-62.5-25] Furosemide [Lasix] 20 mg PO DAILY PRN 02/16/19 Montelukast [Singulair] 10 mg PO DAILY 02/16/19 Potassium Chloride 8 meq PO DAILY 02/16/19 Past Medical History (Chronic Problems): Chronic Problems COPD (chronic obstructive pulmonary disease) (Chronic) 2 L home oxygen HLD (hyperlipidemia) (Chronic) HTN (hypertension) (Chronic) Surgical History: hysterectomy, - - Left hand surgery, lumpectomy left breast noncancerous 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 Denies: Shortness of Breath, Orthopnea, PND, Peripheral Edema, Palpitations, Lightheadedness, Dizziness, Near Syncope, Syncope Respiratory: Denies: Cough, Sputum Production, Hemoptysis Gastrointestinal: Denies: Hematemesis, Hematochezia, Melena Genitourinary: Denies: Dysuria, Hematuria Skin: Denies: Rash Psychiatric: Denies: Anxiety Endocrine: Denies: Unexplained Weight Loss Subjectve: Patient seen and evaluated. Appears to be stable. Objective: Vital Signs Temp Pulse Resp BP Pulse Ox 97.9 F 79 16 148/69 H 93 05/20/20 06:14 05/20/20 07:00 05/20/20 06:14 05/20/20 06:14 05/20/20 07:45 Oxygen Flow Rate (L/min) 2 Oxygen Delivery Method Nasal Cannula Weight: 190 lb 7.67 oz Body Mass Index (BMI) 32.7 Intake and Output for Last 24 Hours 05/18/20 05/19/20 05/20/20 23:59 23:59 23:59 Intake Total 600 / 600 Balance 600 / 600 General: Awake, Alert, Oriented x 3 HEENT: PERRL, EOMI, Sclera Non Icteric Neck: Supple, Good ROM, No Lymph Node Enlargement Lungs: Clear to auscultation Cardiovascular: Regular Rhythm, Normal S1, Normal S2, No Murmurs, No Rubs, No Gallops Vascular: No Carotid Bruits, Normal Femoral Pulses, Normal Radial Pulses, Normal Dorsalis Pedal Pulse, Normal Posterior Tibial Pulses Abdomen: Bowel Sounds Present, Soft, Non Tender, No HSM, No Organomegaly Extremities: No Cyanosis, No Clubbing, No edema Musculoskeletal: No Erythema Neurological: No Focal Motor or Sensory Deficit 05/19/20 00:35: Magnesium 2.2, Troponin I < 0.015 05/19/20 20:30: WBC 11.6 H, RBC 4.57, Hgb 14.0, Hct 41.1, MCV 89.9, MCH 30.6, MCHC 34.1, Plt Count 273, MPV 9.8, Immature Gran % (Auto) 0.300, Neut % (Auto) 61.1, Lymph % (Auto) 25.8, Crisp % (Auto) 8.6, Eos % (Auto) 3.1, Baso % (Auto) 1.1 H, Absolute Neuts (auto) 7.1, Nucleated RBC % 0 05/19/20 20:30: Sodium 130 L, Potassium 4.4, Chloride 97 L, Carbon Dioxide 27.0, Anion Gap 6, BUN 29 H, Creatinine 1.18 H, Est GFR (MDRD) Af Amer 58 L, Est GFR (MDRD) Non-Af 48 L, BUN/Creatinine Ratio 24.6 H, Glucose 169 H, Calcium 9.5, Magnesium 2.1, Troponin I < 0.015 05/19/20 20:30: B-Natriuretic Peptide 197.5 H 04/05/21 20:30: Phosphorus 3.8 05/20/20 02:35: Troponin I < 0.015 05/20/20 02:35: WBC 8.4, RBC 4.43, Hgb 13.4, Hct 40.2, MCV 90.7, MCH 30.2, MCHC 33.3, Plt Count 255, MPV 9.7, Immature Gran % (Auto) 0.200, Neut % (Auto) 68.1, Lymph % (Auto) 20.9, Crisp % (Auto) 7.4, Eos % (Auto) 2.4, Baso % (Auto) 1.0, Absolute Neuts (auto) 5.7, Nucleated RBC % 0 05/20/20 02:35: Sodium 131 L, Potassium 4.0, Chloride 100, Carbon Dioxide 29.0, Anion Gap 2 L, BUN 28 H, Creatinine 0.93, Est GFR (MDRD) Af Amer 77, Est GFR (MDRD) Non-Af 63, BUN/Creatinine Ratio 30.1 H, Glucose 124 H, Calcium 9.4 Rhythm: Normal sinus rhythm this morning EKG: Sinus bradycardia and junctional bradycardia ECHO: Stress Test: Cardiac Cath: PCI: CT Surgery: Holter monitor: EPS: PPM: CXR: Chest CT Scan: Assessment/Plan 1. Junctional bradycardia * The above is likely secondary to the combination of the beta-kayley and the diltiazem. I do not think this has anything to do with her Covid injection. I would recommend that we hold the above medications and optimize her blood pressure medications. * We can continue to watch her for a few more hours during the day to make sure she does not have any more episodes of bradycardia arrhythmia. * 2. Hypertension * Patient has a history of hypertension. I would suggest that we continue the beta-kayley and discontinue the diltiazem. * Would recommend continuing hydrochlorothiazide * Would add lisinopril 10 mg a day to the regimen * Echocardiogram to assess ventricular function * * I do not think the patient needs any further work-up at this particular time. If no significant abnormalities are noted on the echocardiogram the patient can be discharged for outpatient follow-up. * * Thank you for allowing me to participate in the care of your patient. Please don't hesitate to call if any issues arise.
[2020-05-20] MEDS: Montelukast 10 MG Tablet PO (09:49)
[2020-05-20] MEDS: Potassium Chloride Oral Tablet 10 MEQ PO (09:50)
[2020-05-20] MEDS: Calcium Carb/Vitamin D 1 TABLET Tablet PO (09:50)
[2020-05-20] MEDS: Loratadine 10 MG Tablet PO (09:50)
[2020-05-20] MEDS: guaiFENesin 1,200 MG Tablet 1200 MG PO (09:50)
[2020-05-20] MEDS: hydroCHLOROthiazide 25 MG Tablet PO (09:50)
[2020-05-20] MEDS: Multivitamins,Ther W-Minerals Tablet 1 TABLET PO (09:50)
[2020-05-20] MEDS: Aspirin 81 MG TAB.CHEW PO (09:50)
[2020-05-20] MEDS: Ipratropium Bromide 0.06% NASAL SPRAY 2 SPRAY NASAL ×2 (09:52→14:50)
[2020-05-20] MEDS: Lisinopril 10 MG Tablet PO (09:58)
[2020-05-20] MEDS: Metoprolol Tartrate 50 MG Tablet PO (09:58)
[2020-05-20 11:05] LABS: Bedside Glucose 106 mg/dL (70-110)
--- NOTE | 2020-05-20 11:50 | DCINST_ITS ---
- Discharge Diagnoses Current Active Problems: Current Active and Chronic Problems Bradycardia with 41-50 beats per minute (Acute) Chest pain in adult (Acute) COPD (chronic obstructive pulmonary disease) (Chronic) 2 L home oxygen HLD (hyperlipidemia) (Chronic) HTN (hypertension) (Chronic) You will use the following diet at home:: No restrictions Your food should be the consistency of: Regular Your liquids should be the consistency of: Regular/Thin Discharge Activity: Return to Normal Activity Allergies/Adverse Reactions: Allergies atorvastatin [From Lipitor] Allergy (Verified 05/19/20 22:39) Unknown lorazepam [From Ativan] Allergy (Verified 05/19/20 22:39) Unknown mometasone furoate [From Nasonex] Allergy (Verified 05/19/20 22:39) Unknown paroxetine [From Paxil] Allergy (Verified 05/19/20 22:39) Unknown Sulfa (Sulfonamide Antibiotics) Allergy (Verified 05/19/20 22:39) Unknown DOES NOT REMEMBER Allergy (Uncoded 05/19/20 20:11) Unknown Medications to take at Discharge Albuterol Aerosols [Ventolin Aerosols] 2.5 mg INHALATION Q6H PRN PRN 12/16/16 Aspirin [Aspirin, Baby] 81 mg PO DAILY@0800 12/16/16 Calcium Carbonate/Vitamin D3 [Calcium 500+D Tablet Chew] 1 each PO BID 12/16/16 D-Methorphan/PE/Acetaminophen [Trudy-[place] Plus Sinus-Cough] 1 each PO DAILY PRN 12/16/16 Hydrochlorothiazide [Hctz] 25 mg PO DAILY 12/16/16 Ipratropium [place] 0.06% [ATROVENT NASAL SPRAY] 2 spray NASAL 4X/DAY 12/16/16 Metoprolol Tartrate [Lopressor (beta kayley)] 50 mg PO BID 12/16/16 Multivit-Min/Iron/Folic/Lutein [Centrum Silver Women Tablet] 1 each PO DAILY 12/16/16 Simvastatin [Zocor] 20 mg PO QHS 12/16/16 Acetaminophen [Tylenol Tablet] 650 mg PO Q6H PRN PRN tablet 12/18/16 Guaifenesin [Mucinex] 1,200 mg PO BID #10 tablet 12/18/16 Albuterol Sulfate [Ventolin Hfa] 90 mcg IH Q4H PRN PRN 02/16/19 Cetirizine HCl [Zyrtec] 10 mg PO DAILY 02/16/19 Fluticasone/Umeclidin/Vilanter [Trelegy Ellipta 100-62.5-25] 1 ea IH DAILY 02/16/19 Furosemide [Lasix] 20 mg PO DAILY PRN 02/16/19 Montelukast [Singulair] 10 mg PO DAILY 02/16/19 Potassium Chloride 8 meq PO DAILY 02/16/19 Lisinopril [Zestril] 20 mg PO DAILY #30 tablet 05/20/20 The following prescriptions were given: Lisinopril [Zestril] 20 mg PO DAILY #30 tablet Transmission Status: Pending to [facility]/pharmacy #[id number] Primary Care Physician: Phyllis Smith MD [Primary Care Provider] - Test Results: Test results from this visit will be discussed in further detail at your follow- up appointment, if applicable. Proposed Discharge Date: 05/20/20
--- NOTE | 2020-05-20 12:36 | PCM.DC.SUM ---
<Diogenes Guido - Last Filed: 05/20/20 14:41> Discharge Date and Diagnosis - Problem List Patient Problems: Active and Suspected Problems Bradycardia with 41-50 beats per minute (Acute) Chest pain in adult (Acute) Date of Admission: 05/19/20 Date of Discharge: 05/20/20 - Primary Discharge Diagnosis Acute Problems: Active Problems Bradycardia with 41-50 beats per minute (Acute) Chest pain in adult (Acute) - Secondary Discharge Diagnosis Chronic Problems: Chronic Problems COPD (chronic obstructive pulmonary disease) (Chronic) 2 L home oxygen HLD (hyperlipidemia) (Chronic) HTN (hypertension) (Chronic) Hospital Course and Treatment Imaging Results: 05/20/20 08:26 Echo Complete W/ Contrast [ECHO] Routine Operations: None Procedures: EKG Summary of Care Provided: Patient is a 69-year-old female who presented to the ED on 05/19/2020 for chest pain, tightness and palpitations. In the ED patient was also found to be bradycardic at a rate of 42 her heart score was 6 and her STEFANI score was 4 on admission. Patient was admitted for unspecified chest pain and symptomatic bradycardia. EKG showed sinus bradycardia. Chest x-ray showed no evidence of acute cardiopulmonary process. Troponins were not elevated throughout cycle. BNP mildly elevated at 197.5. Cardiology consult was ordered and it was opinion of the driver supervisor that the patient could be managed medically as an outpatient. Of note, patient's previous prescription for diltiazem was discontinued and lisinopril 20 mg p.o. daily was added to their medication regimen per cardiology. Echocardiogram demonstrated normal LV size and function, an estimated EF of 65%, stage I diastolic dysfunction.. Patient will be discharged today. 1) Symptopatic bradycardia with junctional rhythm Assessment - Metoprolol and Cardizem withheld overnight due to bradycardia - Cardiac enzymes revealed no elevation of troponins throughout cycle - EKG demonstrated sinus bradycardia - Phosphorus, magnesium and TSH unremarkable - Managed medically as an outpatient per cardiology - Echo; see above Plan - Home diltiazem discontinued 2) Hypertension Assessment - 144/71, stable Plan - Add lisinopril 20 mg p.o. daily to home medication regimen - Home metoprolol continued - Discontinue diltiazem 3) Hyperlipidemia Assessment - Managed outpatient Plan - Continue simvastatin 4) COPD Assessment - Satting at 93% at 2 L via nasal cannula - Already on oxygen therapy at home - CXR demonstrated no acute cardiopulmonary process Plan - Continue home regimen of albuterol, cetirizine, ipratropium, montelukast - Continue home oxygen - Follow-up with primary care provider within the next 2 weeks Patient seen by Diogenes Guido PA-C, under the supervision of Dr. Weiss. Patient Problems: Active and Suspected Problems Bradycardia with 41-50 beats per minute (Acute) Chest pain in adult (Acute) Subjective: Patient is a 69-year-old female who is sitting up in bed resting comfortably on 2 L of oxygen per minute via via nasal cannula, alert and oriented x3. Patient denies chest pain, shortness of breath, palpitations, fever, chills, N/V/D. - Physical Exam Vitals/I&O's: Vital Signs Temp Pulse Resp BP Pulse Ox 97.9 F 98 16 144/71 H 93 05/20/20 06:14 05/20/20 09:58 05/20/20 06:14 05/20/20 09:58 05/20/20 07:45 Oxygen Flow Rate (L/min) 2 Oxygen Delivery Method Nasal Cannula Weight: 190 lb 7.67 oz Body Mass Index (BMI) 32.7 Intake and Output for Last 24 Hours 05/18/20 05/19/20 05/20/20 23:59 23:59 23:59 Intake Total 600 / 600 Balance 600 / 600 General: Alert, Oriented x3, Cooperative HEENT: Atraumatic, PERRLA, EOMI, Normocephalic Neck: Supple Lungs: Clear to auscultation Cardiovascular: Regular rate, No murmurs Abdomen: Bowel Sounds Present, Soft, Non Tender Extremities: No edema, Capillary Refill Less than 3 Seconds Skin: No rashes, No breakdown Musculoskeletal: No Tenderness to Palpation of Joints or Extremities Neurological: Cranial nerves II-XII grossly intact Psych/Mental Status: Normal Affect, Appropriate Laboratory Results 05/19/20 00:35: Magnesium 2.2, Troponin I < 0.015, TSH 1.84 05/19/20 20:30: WBC 11.6 H, RBC 4.57, Hgb 14.0, Hct 41.1, MCV 89.9, MCH 30.6, MCHC 34.1, RDW Std Deviation 42.4, RDW Coeff of Caroline 12.8, Plt Count 273, MPV 9.8, Immature Gran % (Auto) 0.300, Neut % (Auto) 61.1, Lymph % (Auto) 25.8, [place] % (Auto) 8.6, Eos % (Auto) 3.1, Baso % (Auto) 1.1 H, Absolute Neuts (auto) 7.1, Absolute Lymphs (auto) 2.99, Nucleated RBC % 0 05/19/20 20:30: Sodium 130 L, Potassium 4.4, Chloride 97 L, Carbon Dioxide 27.0, Anion Gap 6, BUN 29 H, Creatinine 1.18 H, Estim Creat Clear Calc 38.31, Est GFR (MDRD) Af Amer 58 L, Est GFR (MDRD) Non-Af 48 L, BUN/Creatinine Ratio 24.6 H, Glucose 169 H, Calcium 9.5, Magnesium 2.1, Troponin I < 0.015 05/19/20 20:30: B-Natriuretic Peptide 197.5 H 05/19/20 20:30: Phosphorus 3.8 05/19/20 22:25: POC Glucose 128 H 05/20/20 02:35: Troponin I < 0.015 05/20/20 02:35: WBC 8.4, RBC 4.43, Hgb 13.4, Hct 40.2, MCV 90.7, MCH 30.2, MCHC 33.3, RDW Std Deviation 43.0, RDW Coeff of Caroline 12.9, Plt Count 255, MPV 9.7, Immature Gran % (Auto) 0.200, Neut % (Auto) 68.1, Lymph % (Auto) 20.9, [place] % (Auto) 7.4, Eos % (Auto) 2.4, Baso % (Auto) 1.0, Absolute Neuts (auto) 5.7, Absolute Lymphs (auto) 1.75, Nucleated RBC % 0 05/20/20 02:35: Sodium 131 L, Potassium 4.0, Chloride 100, Carbon Dioxide 29.0, Anion Gap 2 L, BUN 28 H, Creatinine 0.93, Estim Creat Clear Calc 48.61, Est GFR (MDRD) Af Amer 77, Est GFR (MDRD) Non-Af 63, BUN/Creatinine Ratio 30.1 H, Glucose 124 H, Calcium 9.4 05/20/20 06:19: POC Glucose 103 05/20/20 10:59: POC Glucose 106 Current Medications Acetaminophen (Acetaminophen 325 Mg Tablet) 650 mg PO Q6H PRN PRN PRN Reason: Pain Score 1-10/Temp > 100.7 F Albuterol Sulfate (Albuterol 2.5 Mg/3 Ml Vial.Neb.) 2.5 mg INHALATION Q2H PRN PRN PRN Reason: SOB/Wheezing Aspirin (Aspirin 81 Mg Tab.Chew) 81 mg PO DAILY@0800 [facility] Last Admin: 05/20/20 09:50 Dose: 81 mg Documented by: Calcium/Vitamin D (Calcium Carb/Vitamin D 1 Tablet Tablet) 1 tablet PO BID [facility] Last Admin: 05/20/20 09:50 Dose: 1 tablet Documented by: Guaifenesin (Guaifenesin 1,200 Mg Tablet) 1,200 mg PO BID [facility] Last Admin: 05/20/20 09:50 Dose: 1,200 mg Documented by: Hydrochlorothiazide (Hydrochlorothiazide 25 Mg Tablet) 25 mg PO DAILY [facility] Last Admin: 05/20/20 09:50 Dose: 25 mg Documented by: Insulin Human Lispro (Insulin Lispro 100 Unit/Ml Insuln.Pen) 0 unit [facility]; Protocol Last Admin: 05/20/20 11:02 Dose: Not Given Documented by: Ipratropium [place] (Ipratropium [place] 0.06% Nasal [place]) 2 spray NASAL 4X/DAY [facility] Last Admin: 05/20/20 09:52 Dose: 2 spray Documented by: Lisinopril (Lisinopril 10 Mg Tablet) 10 mg PO DAILY [facility] Last Admin: 05/20/20 09:58 Dose: 10 mg Documented by: Loratadine (Loratadine 10 Mg Tablet) 10 mg PO DAILY [facility] Last Admin: 05/20/20 09:50 Dose: 10 mg Documented by: Melatonin (Melatonin 3 Mg Tablet) 3 mg PO QHS PRN PRN PRN Reason: INSOMNIA Metoprolol Tartrate (Metoprolol Tartrate 50 Mg Tablet) 50 mg PO BID [facility] Last Admin: 05/20/20 09:58 Dose: 50 mg Documented by: Montelukast Sodium (Montelukast 10 Mg Tablet) 10 mg PO DAILY [facility] Last Admin: 05/20/20 09:49 Dose: 10 mg Documented by: Morphine Sulfate (Morphine 2 Mg/Ml Syringe) 2 mg IV Q3H PRN PRN PRN Reason: Pain Score 6-10 Multivitamins/Minerals (Multivitamins,Ther W-Minerals [facility]t) [facility] Admin: 05/20/20 09:50 Dose: 1 tablet Documented by: Nitroglycerin (Nitroglycerin (Inpatient Use) 0.4 Mg Tab.Subl) 0.4 mg SL Q5M PRN PRN Reason: CARDIAC/CHEST PAIN Ondansetron HCl (Ondansetron 4 Mg/2 Ml Vial) 4 mg IV Q8H PRN PRN PRN Reason: NAUSEA/VOMITING Potassium Chloride (Potassium Chloride Oral Tablet 10 Meq) [facility] Last Admin: 05/20/20 09:50 Dose: 10 meq Documented by: Simvastatin (Simvastatin 20 Mg Tablet) 20 mg PO QHS [facility] Sodium Chloride (0.9% Saline Lock 10 Ml Syringe) 10 - 40 ml IV UD PRN PRN Reason: SALINE FLUSH Discharge Diet: No Restrictions Discharge Activity: Return to Normal Activity Home Medications: Medications to take at Discharge Albuterol Aerosols [Ventolin Aerosols] 2.5 mg INHALATION Q6H PRN PRN 12/16/16 Aspirin [Aspirin, Baby] 81 mg PO DAILY@0800 12/16/16 Calcium Carbonate/Vitamin D3 [Calcium 500+D Tablet Chew] 1 each PO BID 12/16/16 D-Methorphan/PE/Acetaminophen [Trudy-Novice Plus Sinus-Cough] 1 each PO DAILY PRN 12/16/16 Hydrochlorothiazide [Hctz] 25 mg PO DAILY 12/16/16 Ipratropium [place] 0.06% [ATROVENT NASAL SPRAY] 2 spray NASAL 4X/DAY 12/16/16 Metoprolol Tartrate [Lopressor (beta kayley)] 50 mg PO BID 12/16/16 Multivit-Min/Iron/Folic/Lutein [Centrum Silver Women Tablet] 1 each PO DAILY 12/16/16 Simvastatin [Zocor] 20 mg PO QHS 12/16/16 Acetaminophen [Tylenol Tablet] 650 mg PO Q6H PRN PRN tablet 12/18/16 Guaifenesin [Mucinex] 1,200 mg PO BID #10 tablet 12/18/16 Albuterol Sulfate [Ventolin Hfa] 90 mcg IH Q4H PRN PRN 02/16/19 Cetirizine HCl [Zyrtec] 10 mg PO DAILY 02/16/19 Fluticasone/Umeclidin/Vilanter [Trelegy Ellipta 100-62.5-25] 1 ea IH DAILY 02/16/19 Furosemide [Lasix] 20 mg PO DAILY PRN 02/16/19 Montelukast [Singulair] 10 mg PO DAILY 02/16/19 Potassium Chloride 8 meq PO DAILY 02/16/19 Lisinopril [Zestril] 20 mg PO DAILY #30 tablet 05/20/20 Following Prescriptions Were Given to Patient: Lisinopril [Zestril] 20 mg PO DAILY #30 tablet Transmission Status: Received by [id number] Primary Care Physician: Phyllis Smith MD [Primary Care Provider] - Please follow up with your Primary Care Physician in: Within the next 2 weeks Please Follow Up With: [facility] When: Within the next 2 weeks Disposition: Home Minutes spent on discharge:: 35 Patient Condition:: Good Medical Necessity - Tobacco Use Smoking Status: Former smoker Meaningful Use Info Meaningful Use Diagnoses (Choose all that apply): None applicable <Julia Weiss - Last Filed: 05/20/20 16:21> Discharge Date and Diagnosis - Primary Discharge Diagnosis Acute Problems: Active Problems Bradycardia with 41-50 beats per minute (Acute) Chest pain in adult (Acute) - Secondary Discharge Diagnosis Chronic Problems: Chronic Problems COPD (chronic obstructive pulmonary disease) (Chronic) 2 L home oxygen HLD (hyperlipidemia) (Chronic) HTN (hypertension) (Chronic) Hospital Course and Treatment Imaging Results: 05/20/20 08:26 Echo Complete W/ Contrast [ECHO] Routine cardiology- Dr Ayala Procedures: 2-D Echocardiogram Summary of Care Provided: Patient seen by Diogenes Guido PA-C under my supervision The patient is a 69 year old F with a past medical history as outlined was admitted through the ED on 05/19/2020 with a complaint of weakness and lightheadedness. She says she checked her heart rhythm on a pulse ox machine and saw that her heart rate was down in the 40s. She says she had noticed this several times over the past few weeks and her heart rate subsequently improved. However at this time remained low so she decided to come in. Patient denied overt chest pressure but says she felt some tightness across her shoulders. Troponins x3 were negative and EKG showed no acute ST changes. BNP was 197. She was admitted and managed for bradycardia. Patient was on Cardizem and metoprolol and these were discontinued. Cardiology was consulted. She was started on lisinopril 20 mg daily in lieu of her metoprolol and Cardizem. She had a 2D echo which showed EF of 65% with stage I diastolic dysfunction and no regional wall motion abnormalities noted. She remained stable and heart rate improved. She was discharged on 05/20/2020 is follow-up with her primary care doctor and is also to follow-up with cardiology. Next Patient seen and examined prior to discharge. She had no complaints and felt well. Review systems otherwise negative. Labs and vitals reviewed. Medication reviewed and reconciled. O/E: Vital Signs Temp Pulse Resp BP Pulse Ox 98.3 F 80 18 149/74 H 98 05/20/20 13:15 05/20/20 13:15 05/20/20 13:15 05/20/20 13:15 05/20/20 13:15 [] General: Alert, Oriented x3, Cooperative HEENT: Atraumatic, PERRLA, EOMI, Normocephalic Neck: Supple, No JVD, Negative Carotid Bruits Lungs: Clear to auscultation, Normal air movement, on 2L of oxygen which is her baseline Cardiovascular: No murmurs, normal sinus rhythm, normal rate Abdomen: Bowel Sounds Present, Soft, Non Tender Extremities: No edema, Capillary Refill Less than 3 Seconds, Peripheral Pulses Normal Skin: No rashes, No breakdown Musculoskeletal: No Tenderness to Palpation of Joints or Extremities Neurological: Cranial nerves II-XII grossly intact Psych/Mental Status: Normal Affect, Appropriate Plan is for discharge home today. Rest as per Diogenes Guido PA-C's notes which I have reviewed and endorsed. - Physical Exam Vitals/I&O's: Vital Signs Temp Pulse Resp BP Pulse Ox 98.3 F 80 18 149/74 H 98 05/20/20 13:15 05/20/20 13:15 05/20/20 13:15 05/20/20 13:15 05/20/20 13:15 Oxygen Flow Rate (L/min) 2 Oxygen Delivery Method Nasal Cannula Weight: 190 lb 7.67 oz Body Mass Index (BMI) 32.7 Intake and Output for Last 24 Hours 05/18/20 05/19/20 05/20/20 23:59 23:59 23:59 Intake Total 2259 Balance 2259 Laboratory Results 05/19/20 00:35: Magnesium 2.2, Troponin I < 0.015, TSH 1.84 05/19/20 20:30: WBC 11.6 H, RBC 4.57, Hgb 14.0, Hct 41.1, MCV 89.9, MCH 30.6, MCHC 34.1, RDW Std Deviation 42.4, RDW Coeff of Acroline 12.8, Plt Count 273, MPV 9.8, Immature Gran % (Auto) 0.300, Neut % (Auto) 61.1, Lymph % (Auto) 25.8, [place] % (Auto) 8.6, Eos % (Auto) 3.1, Baso % (Auto) 1.1 H, Absolute Neuts (auto) 7.1, Absolute Lymphs (auto) 2.99, Nucleated RBC % 0 05/19/20 20:30: Sodium 130 L, Potassium 4.4, Chloride 97 L, Carbon Dioxide 27.0, Anion Gap 6, BUN 29 H, Creatinine 1.18 H, Estim Creat Clear Calc 38.31, Est GFR (MDRD) Af Amer 58 L, Est GFR (MDRD) Non-Af 48 L, BUN/Creatinine Ratio 24.6 H, Glucose 169 H, Calcium 9.5, Magnesium 2.1, Troponin I < 0.015 05/19/20 20:30: B-Natriuretic Peptide 197.5 H 05/19/20 20:30: Phosphorus 3.8 05/19/20 22:25: POC Glucose 128 H 05/20/20 02:35: Troponin I < 0.015 05/20/20 02:35: WBC 8.4, RBC 4.43, Hgb 13.4, Hct 40.2, MCV 90.7, MCH 30.2, MCHC 33.3, RDW Std Deviation 43.0, RDW Coeff of [place] 12.9, Plt Count 255, MPV 9.7, Immature Gran % (Auto) 0.200, Neut % (Auto) 68.1, Lymph % (Auto) 20.9, [place] % (Auto) 7.4, Eos % (Auto) 2.4, Baso % (Auto) 1.0, Absolute Neuts (auto) 5.7, Absolute Lymphs (auto) 1.75, Nucleated RBC % 0 05/20/20 02:35: Sodium 131 L, Potassium 4.0, Chloride 100, Carbon Dioxide 29.0, Anion Gap 2 L, BUN 28 H, Creatinine 0.93, Estim Creat Clear Calc 48.61, Est GFR (MDRD) Af Amer 77, Est GFR (MDRD) Non-Af 63, BUN/Creatinine Ratio 30.1 H, Glucose 124 H, Calcium 9.4 05/20/20 06:19: POC Glucose 103 05/20/20 10:59: POC Glucose 106 OBSV E&M: [id number] Observation care discharge
== END 2020-05-20 11:51 | disposition home or self-care (01) ==
LOC: ED 21:08 → PCU 22:09
PROVIDERS: Nurse Practitioner Family; Admitting Provider Family Medicine; Emergency Provider Student in an Organized Health Care Education/Training Program; PCP Internal Medicine; Visit Provider Student in an Organized Health Care Education/Training Program
DX: R00.1 Bradycardia, unspecified (principal); R07.89 Other chest pain; J44.9 Chronic obstructive pulmonary disease, unspecified; E78.5 Hyperlipidemia, unspecified; I10 Essential (primary) hypertension; Z87.891 Personal history of nicotine dependence; I25.10 Atherosclerotic heart disease of native coronary artery without angina pectoris; R00.2 Palpitations; Z86.711 Personal history of pulmonary embolism; Z86.718 Personal history of other venous thrombosis and embolism; Z79.899 Other long term (current) drug therapy; Z79.82 Long term (current) use of aspirin; Z99.81 Dependence on supplemental oxygen
CPT/HCPCS: 36415; 71045; 80048; 82962; 83735; 83880; 84100; 84443; 84484; 85025; 93005; 93306; 96360; 96361; 99218; 99285; J7030; Q9957; A4216; C8929; G0378

== ENCOUNTER → 2022-02-03 | Outpatient (CLI) | payer MEDICARE, OTHER, SELFPAY ==
--- NOTE | 2022-02-03 07:43 | CT_ITS ---
HISTORY: FORMER SMOKER. TECHNIQUE: Helically acquired images were obtained of the chest without contrast. A radiation dose optimization technique was used for this scan. 853 images. COMPARISON: CTA 02/16/2019. FINDINGS: LARGE AIRWAYS: Patent. LUNGS: Severe bullous emphysema with chronic mild biapical and middle lobe scarring. Stable 2 mm left lower lobe pulmonary nodules or scars posteriorly. PLEURA: No pneumothorax or significant pleural effusion. HEART/PERICARDIUM: Heart within normal limits in size. Coronary artery calcification identified. No pericardial effusion. VESSELS: Thoracic aorta nondilated. MEDIASTINUM/FARZANA: No pathologically enlarged adenopathy. UPPER ABDOMEN: Mild hiatal hernia. BONES: Osteopenia and degenerative change. CT/Low Dose CT Lung Screening IMPRESSION: Bullous emphysema with chronic mild scarring and stable 2 mm left lower lobe pulmonary nodules or scars. Lung-RADS category 2: Continue annual screening with low dose CT. Electronically Signed: Symone Devi MD at 10:04 [facility] ,
== END | disposition home or self-care (01) ==
LOC: CT 07:41
PROVIDERS: PCP Internal Medicine
DX: J44.9 Chronic obstructive pulmonary disease, unspecified (principal); Z87.891 Personal history of nicotine dependence
CPT/HCPCS: 71271

== ENCOUNTER → 2022-06-15 | Outpatient (CLI) | payer MEDICARE, OTHER, SELFPAY | END | disposition home or self-care (01) | LOC: PSN 06:38 | PROVIDERS: PCP Internal Medicine; Referring Provider Physician Assistant Medical; Visit Provider Physician Assistant Medical | DX: R00.1 Bradycardia, unspecified (principal) | CPT/HCPCS: 93225; 93226 ==

== ENCOUNTER 2022-06-23 08:54 | Emergency (ER) | payer MEDICARE, OTHER, SELFPAY ==
[2022-06-23] VITALS (13 sets, daily range): BP systolic 145–163; BP diastolic 62–83; PULSE 81–102; RESP 14–21; TEMP 36.4–36.6; O2SAT 81–98; BMI 27.4
--- NOTE | 2022-06-23 09:05 | ED.RN ---
pt standing at bedside with o2 sats at 81% on home 2l of oxygen via nc. pt o2 increased to 5l via nc. o2 sats increase to 94% dr. swenson made aware
--- NOTE | 2022-06-23 09:09 | EKG12_ITS ---
Test Reason : SOB Blood Pressure : / mmHG Vent. Rate : 081 BPM Atrial Rate : 081 BPM P-R Int : 170 ms QRS Dur : 072 ms QT Int : 374 ms P-R-T Axes : 065 076 075 degrees QTc Int : 434 ms Sinus rhythm with Premature supraventricular complexes Otherwise normal ECG When compared with ECG of 19-MAY-2020 22:51, Vent. rate has increased BY 28 BPM Confirmed by PERRI BOLES, SOTERO ([id number]), book or script editor LOGAN HAIRSTON ([id number]) on 06/24/2022 11:52:01 A M Referred By: Confirmed By:TARSHA RAYO MD
--- NOTE | 2022-06-23 09:11 | ED.VIS.DYS ---
HPI History of Present Illness Chief Complaint: Shortness of Breath Informant: patient Onset/Context/Timing Onset: Days Context: gradual Timing: Continuous Quality: Positive for Wheezing Current Severity: Mild Maximum Severity: Mild Worsened by: Exertion and Coughing Relieved by: Oxygen Associated Symptoms cough, chills and yellow sputum Chest Pain: Positive for None Narrative Narrative: 6-year-old female history of COPD typically on 2 L of oxygen at home, cardiomyopathy, hypertension, diabetes. States since Tuesday she has had a cough typically it is clear to white sputum and not yellow. Denies fever but has had chills. She has pain under left mid to lower posterior lung with coughing. No history of DVT or PE. No recent travel, surgery or immobilization. No recent hospitalization. No hemoptysis. No new leg pain or swelling. She does have some mild chronic peripheral edema. PE Risk Factors: Negative for Cancer, OCP + Smoking + > 35, Prior DVT or PE, Recent immobilization, Recent surgery or Recent travel Prior similar symptoms: Yes Recent Illness/Hospitalization: No PFSH PFSH Medical History Bradycardia with 41-50 beats per minute Cardiomyopathy COPD (chronic obstructive pulmonary disease) Essential hypertension HLD (hyperlipidemia) Obesity Home Medications albuterol sulfate 2.5 mg/3 mL (0.083 %) solution for nebulization 2.5 mg inhalation Q6H PRN PRN Sob &/Or Wheezing 12/16/16 [History Last Taken 12/16/16] aspirin 81 mg chewable tablet 81 mg PO DAILY@0800 HEALTH MAINTENANCE 12/16/16 [History Last Taken 12/16/16] calcium carbonate 500 mg-vitamin D3 10 mcg (400 unit) chewable tablet 1 each PO BID SUPPLEMENT 12/16/16 [History Last Taken 12/16/16] hydrochlorothiazide 25 mg tablet 25 mg PO DAILY DIURETIC/WATER PILL 12/16/16 [History Last Taken 12/16/16] metoprolol tartrate 50 mg tablet 50 mg PO BID BLOOD PRESSURE 12/16/16 [History Last Taken 12/16/16] multivit with lfrvyywg-tvrm-MT-lutein 8 mg iron-400 mcg-300 mcg tablet 1 each PO DAILY SUPPLEMENT 12/16/16 [History Last Taken 12/16/16] phenylephrine 5 mg-dextromethorphan 10 mg-acetaminophen 325 mg capsule 1 each PO DAILY PRN COLD SYMPTOMS 12/16/16 [History Last Taken Unknown] simvastatin 20 mg tablet 20 mg PO QHS CHOLESTEROL 12/16/16 [History Last Taken 12/15/16] acetaminophen 325 mg tablet 650 mg PO Q6H PRN PRN Mild Pain (scale 0-3)/T>100.7 12/18/16 [Rx Last Taken Unknown] albuterol sulfate 90 mcg/actuation aerosol inhaler 90 mcg IH Q4H PRN PRN Sob &/Or Wheezing 02/16/19 [History Last Taken Unknown] cetirizine 10 mg disintegrating tablet 10 mg PO DAILY 02/16/19 [History Last Taken Unknown] fluticasone fur. 100 mcg-umeclid 62.5 mcg-vilant 25 mcg inhalat.powder 1 each IH DAILY 02/16/19 [History Last Taken Unknown] furosemide 20 mg tablet 20 mg PO DAILY PRN EDEMA 02/16/19 [History Last Taken Unknown] montelukast 10 mg tablet 10 mg PO DAILY 02/16/19 [History Last Taken Unknown] potassium chloride 20 mEq tablet,extended release(part/cryst) (Klor-Con M) ea PO 08/05/21 [History Last Taken Unknown] lisinopril 20 mg tablet 30 mg PO DAILY 06/08/22 [History Last Taken Unknown] azithromycin 250 mg tablet (Zithromax Z-Bib) 250 mg PO DAILY 4 days #4 tabs 06/23/22 [Rx Last Taken Unknown] prednisone 20 mg tablet 40 mg PO DAILY 10 days #20 tabs 06/23/22 [Rx Last Taken Unknown] Allergy/AdvReac Type Severity Reaction Status Date / Time atorvastatin [From Lipitor] Allergy Unknown Verified 06/23/22 08:59 lorazepam [From Ativan] Allergy Unknown Verified 06/23/22 08:59 mometasone furoate Allergy Unknown Verified 06/23/22 08:59 [From Nasonex] paroxetine [From Paxil] Allergy Unknown Verified 06/23/22 08:59 Sulfa (Sulfonamide Allergy Unknown Verified 06/23/22 08:59 Antibiotics) Family History Mother Lung disease Father Lung disease Surgical History History of lumpectomy History of partial hysterectomy Social History Smoking Status: Former smoker alcohol intake: never ROS ROS ED ROS Narrative Cough. Yellow phlegm. Shortness of breath. Chills. Review of Systems ROS Unobtainable: Denies due to encephalopathy Constitutional Constitutional ED: Reports chills; Denies fever(s) Eyes Eyes: Denies blurry vision ENT ENT ED: Denies ear pain or sore throat Cardiovascular Cardiovascular: Denies chest pain or palpitations Respiratory/Chest Respiratory/Chest: Reports cough, dyspnea and sputum Gastrointestinal Gastrointestinal: Denies abdominal pain, diarrhea, nausea or vomiting Genitourinary Genitourinary ED: Denies dysuria or hematuria Musculoskeletal Musculoskeletal: Denies arthralgias Integumentary Denies abscess Neurologic Neurologic: Denies headache(s) Psychiatric Psychiatric: Denies anxiety Endocrine Endocrinology: Denies cold intolerance Hematologic/Lymphatic Hematologic/Lymphatic: Denies easy bleeding Allergic/Immunologic Allergic/Immunologic ED: Denies mouth swelling or tongue swelling EXAM Physical Exam Narrative Exam Narrative: 69-year-old female vital signs are stable except her pulse ox is only 90% on 5 L. On her typical 2 L she was in the mid to low 80% range. She does not look septic or toxic. She is in no distress and is lying in bed. H EENT exam unremarkable. Moist with membranes. Neck nontender no JVD. No lymphadenopathy. Lungs diminished breath sounds bilaterally. Few scattered expiratory wheezes. No rales or rhonchi. Heart tachycardic rate about 101 no murmur. Chest wall nontender. Abdomen soft nontender. Moving all 4 extremities. Neurovascularly intact. Trace edema both legs. Calves are nontender no cords. Neurologically she is awake and alert with no focal motor deficits. Const Vital Signs: 06/23/22 08:56 06/23/22 09:09 06/23/22 08:59 Temperature 97.9 F 97.5 F L Temperature Source Temporal Temporal Pulse Rate 102 H 81 Respiratory Rate 16 20 H Respiratory Effort Short of Breath Respiratory Depth Shallow Respiratory Pattern Tachypnea Blood Pressure 161/75 H 146/65 H Blood Pressure Mean 103 92 Pulse Ox 90 97 Oxygen Delivery Method Nasal Cannula Nasal Cannula Nasal Cannula Oxygen Flow Rate (L/min) 5 2 2 06/23/22 09:27 06/23/22 09:27 06/23/22 09:27 Temperature Temperature Source Pulse Rate 81 Respiratory Rate 18 18 Respiratory Effort Short of Breath Respiratory Depth Respiratory Pattern Blood Pressure Blood Pressure Mean Pulse Ox 97 97 Oxygen Delivery Method Nasal Cannula Nasal Cannula Oxygen Flow Rate (L/min) 2 2 06/23/22 09:12 06/23/22 09:15 06/23/22 09:20 Temperature Temperature Source Pulse Rate 85 82 84 Respiratory Rate 14 21 H 18 Respiratory Effort Respiratory Depth Respiratory Pattern Blood Pressure 146/65 H Blood Pressure Mean 91 Pulse Ox 98 96 97 Oxygen Delivery Method Oxygen Flow Rate (L/min) 06/23/22 09:30 06/23/22 09:30 06/23/22 09:40 Temperature Temperature Source Pulse Rate 85 85 93 Respiratory Rate 17 17 18 Respiratory Effort Respiratory Depth Respiratory Pattern Blood Pressure 145/62 H Blood Pressure Mean 84 Pulse Ox 95 95 Oxygen Delivery Method Oxygen Flow Rate (L/min) 06/23/22 09:45 06/23/22 09:52 06/23/22 10:36 Temperature Temperature Source Pulse Rate 101 H Respiratory Rate 19 H Respiratory Effort Respiratory Depth Respiratory Pattern Blood Pressure 153/66 H 163/83 H Blood Pressure Mean 92 Pulse Ox 92 95 Oxygen Delivery Method Oxygen Flow Rate (L/min) Positive well nourished and well developed; Negative for obese, cachectic, contractures or unkempt General Appearance ED: well developed and NAD; Negative for unkempt, cachectic, contractures or pallor Nutritional Appearance: Negative for cachectic or obese HEENT Reports moist mucous membranes; Denies dry mucous membranes atraumatic; Negative for trauma or tenderness Mouth ED: No dry mucous membranes Mouth: No dry mucous membranes Eyes EOMs intact bilaterally General Eye ED: Negative for pale conjunctiva or scleral icterus Neck no lymphadenopathy, supple, no meningeal signs and no JVD General: Negative for tenderness Lymph Lymphatic: Negative for other Chest Wall Chest: Negative for other Resp normal respiratory effort and No clear to auscultation bilaterally Effort and Inspection: Negative for pain with movement Auscultation: wheezes and diminished lung sounds; Negative for rales or rhonchi Cardio regular rhythm, S1 normal heart sound, S2 normal heart sound and no murmurs; Negative for regular rate Rate: tachycardic Rhythm: Negative for abnormal rhythm GI non-tender, non-distended and no masses Auscultation: normoactive bowel sounds Palpation: soft; Negative for tender or guarding Back/Spine no CVA tenderness and normal to inspection General Back: Negative for CVA tenderness or tenderness Extremity Negative for normal to inspection Extremity Narrative: Trace edema bilaterally. No calf tenderness or cords. Compressions stockings on. General Extremety ED: Yes edema; Negative for tenderness General Extremity: edema Neuro oriented x3 Sensorium / Orientation: alert, oriented to person, oriented to place and oriented to time; Negative for orientation impaired, confused, lethargic or stuporous Speech: speech normal Motor Exam: strength 5/5 throughout Psych mental status grossly normal Appearance: Negative for unkempt Attitude: No agitated Mood & Affect: Negative for depressed, anxious or tearful Thought Process: normal thought process Skin no wounds General Skin Exam: Negative for jaundice or pallor Lesions: no lesions Rashes: no rashes Trauma: Negative for abrasion MDM MDM MDM Narrative Medical decision making narrative: 71-year-old female history of COPD with shortness of breath and a change in her sputum. This may be a left lower lobe pneumonia. Consider cardiac etiology. She has no prior history of DVT or PE or any significant risk factors for such. She will undergo a cardiac respiratory work-up. Received IV Solu-Medrol, DuoNeb and albuterol aerosols and reassess. Repeat exam patient is doing well. Improved post the aerosols and IV Solu-Medrol. She ambulated on her normal oxygen her pulse ox dropped to 88 but she felt fine. She said that its not abnormal and happens at home. She wants to be discharged home she does not want to be admitted. I did discuss with her and offered admission. But again she wants to go home. She will be started on Zithromax Z-BIB given first dose p.o. here. Prednisone 40 mg a day for 10 days. Outpatient follow-up with her primary care physician Dr. Jennifer Arriola. Return if worse. History & Record Review Discussion w/independent historian: Patient Additional record(s) reviewed:: Prior inpatient record, Prior outpatient record, Prior ED visit and Prior labs Lab Data Attestation: I reviewed the patient's lab results. Lab results narrative: CBC shows a white count 12.2. H&H 12.8 and 38. Platelets 323. Chemistry shows a sodium 130. Gap 11. BUN 18 creatinine 1.1. Glucose 90. Troponin normal at 7. Labs are consistent with prior labs she has had done. Unremarkable EKG. Rapid COVID and flu test were negative. Labs: Laboratory Results - last 24 hr 06/23/22 06/23/22 09:12 09:12 WBC 12.2 H RBC 4.24 Hgb 12.8 Hct 38.6 MCV 91.0 MCH 30.2 MCHC 33.2 RDW Std Deviation 40.9 RDW Coeff of Caroline 12.3 Plt Count 323 MPV 9.5 Immature Gran % (Auto) 0.300 Neut % (Auto) 73.1 H Lymph % (Auto) 13.3 L [place] % (Auto) 8.7 Eos % (Auto) 3.8 Baso % (Auto) 0.8 Absolute Neuts (auto) 8.9 H Absolute Lymphs (auto) 1.63 Nucleated RBC % 0 Sodium 130 L Potassium 3.9 Chloride 93 L Carbon Dioxide 26.0 Anion Gap 11 BUN 18 Creatinine 1.13 H Estim Creat Clear Calc 38.86 Est GFR (MDRD) Af Amer 61 Est GFR (MDRD) Non-Af 50 L BUN/Creatinine Ratio 15.9 Glucose 90 Calcium 9.8 Troponin I High Sens 7 Radiography Chest X-Ray - ED: 2 View, Read by ED Physician, Heart, Mediastinum, Bony Structures, Chronic Changes and Left Infiltrate Diagnostic Testing: Clinical Impression(s) from Imaging Studies Chest X-Ray 06/23/22 09:50 IMPRESSION: New infiltrate in the left upper lobe superimposed on the COPD and emphysematous changes. Electronically Signed: Darrius Lujan MD at 10:13 EDT , Chest x-ray, 2 views, AP and lateral, interpreted myself shows chronic changes distant with COPD. Streaking in the left lower lobe that I believe is a left lower lobe pneumonia. Rhythm Strip Rhythm Strip: Sinus Rhythm Rate: 81 Ectopy: None EKG Initial EKG: Attestation: I personally reviewed and interpreted this EKG as follows: Interpretation: Sinus Rhythm and No Acute Injury Pattern Comments: Normal sinus rhythm rate of 81 no acute signs of OR or dysrhythmia. Discharge Plan Triage Chief Complaint: Shortness of Breath ED Provider: Kyle Chen Dx/Rx/DC Orders Clinical Impression: Acute dyspnea, Hypoxia, COPD exacerbation, Pneumonia Instructions: ED COPD Flare, ED Pneumonia (Adult) Prescriptions: New azithromycin [Zithromax Z-Bib] 250 mg tablet 250 mg PO DAILY 4 Days Qty: 4 0RF Rx Instructions: start on day 2 of therapy prednisone 20 mg tablet 40 mg PO DAILY 10 Days Qty: 20 0RF No Action potassium chloride [Klor-Con M20] 20 mEq tablet,ER particles/crystals PO Label Comments: TAKE 2 TABLETS IN THE MORNING AND 1 TABLET AT NIGHT lisinopril 20 mg tablet 30 mg PO DAILY albuterol sulfate 2.5 MG/3 ML solution for nebulization 2.5 mg INHALATION Q6H PRN PRN (Reason: Sob &/Or Wheezing) simvastatin 20 MG tablet 20 mg PO QHS metoprolol tartrate 50 MG tablet 50 mg PO BID hydrochlorothiazide 25 MG tablet 25 mg PO DAILY ltgkvmxwdvduh-LG-qmwgowcajaicx 1 EACH capsule 1 each PO DAILY PRN (Reason: COLD SYMPTOMS) calcium carbonate-vitamin D3 1 EACH tablet,chewable 1 each PO BID ueiksias-ggr-eroa-FA-lutein 1 EACH tablet 1 each PO DAILY aspirin 81 MG tablet,chewable 81 mg PO DAILY@0800 acetaminophen 325 MG tablet 650 mg PO Q6H PRN PRN (Reason: Mild Pain (scale 0-3)/T>100.7) 0RF montelukast 10 MG tablet 10 mg PO DAILY furosemide 20 MG tablet 20 mg PO DAILY PRN (Reason: EDEMA) albuterol sulfate 18 GM HFA aerosol inhaler 90 mcg IH Q4H PRN PRN (Reason: Sob &/Or Wheezing) Label Comments: INHALE 2 PUFFS INSTRUCTED EVERY 4 HOURS NEEDED FOR WHEEZING/SHORTNESS OF BREATH. cetirizine 10 MG tablet,disintegrating 10 mg PO DAILY fofitjowaiy-cmavotcpg-mpymancg 1 EACH blister with device 1 each IH DAILY Primary Care Provider: Phyllis Smith Referrals: Phyllis Smith MD [Primary Care Provider] - 3-5 Days Activity Restrictions/Additional Instructions: Follow-up with your doctor in 3 to 5 days to ensure you are improving. Return to the emergency department if you are feeling worse. Prednisone 40 mg a day starting tomorrow for the next 10 days. This should help decrease your wheezing and inflammation in your lungs. Zithromax, antibiotic, 1 pill/day for the next 4 days starting tomorrow. You had your first dose in the ER today. Use your inhaler and nebulizer at home as needed. Disposition Disposition: Home, Self Care Discharge Date/Time: 06/23/22 10:36
[2022-06-23] MEDS: Albuterol 2.5 MG/3 ML VIAL.NEB. INHALATION (09:23)
[2022-06-23] MEDS: MethylPREDNISolone 125 MG/2 ML Vial IV (09:23)
[2022-06-23] MEDS: Ipratropium/Albuterol Sulfate 3 ML AMPUL.NEB INHALATION (09:23)
[2022-06-23 09:27] LABS: Absolute Lymphocyte Count 1.63 X10^3/uL (0.83-4.51); Absolute Neutrophil Count 8.9 X10^3/uL (2.0-7.7); Basophil% 0.8 % (0-1); Eosinophil# 0.47 X10^3/uL; Eosinophils% 3.8 % (0-5); Hematocrit 38.6 % (37-47); Hemoglobin 12.8 g/dL (12.0-15.0); Lymphocyte # 1.63 X10^3/ul (0.83-4.51); Lymphocyte % 13.3 % (19-41); Mean Corp Hgb Conc 33.2 g/dL (32-36); Mean Corpuscular Hgb 30.2 pg (27.0-32.0); Mean Platelet Vol. 9.5 fl (6.2-12.0); Monocyte# 1.06 X10^3/uL; Monocyte% 8.7 % (0-10); NRBC Flagged by Analyzer 0 % (0-5); Neutrophil # 8.94 X10^3/uL (2.7-7.7); Neutrophil % 73.1 % (47-70); Platelet Count 323 K/mm3 (150-450); RBC Distribution Width CV 12.3 % (11.6-14.6); RBC Distribution Width SD 40.9 fl (35.1-43.9); Red Blood Count 4.24 M/mm3 (4.2-5.4); White Blood Count 12.2 K/mm3 (4.4-11.0)
[2022-06-23 09:42] LABS: Anion Gap 11 (5-15); BUN 18 mg/dL (7-18); BUN/Creat Ratio 15.9 RATIO (10-20); Calcium,Total 9.8 mg/dL (8.5-10.1); Chloride 93 mmol/L (98-107); Creatinine, Serum 1.13 mg/dL (0.55-1.02); EST Glomerular Filtration Rate 50 mL/min (>60); Est Glom Filt Rate - Afr Amer 61 mL/min (>60); Estimated Creatinine Clearance 38.86 ml/min; Glucose 90 mg/dL (74-106); Potassium 3.9 mmol/L (3.5-5.1); Sodium Level 130 mmol/L (136-145); Troponin-I HS 7 pg/mL (3.0-54.0)
--- NOTE | 2022-06-23 09:50 | RAD_ITS ---
STUDY: X-RAY CHEST REASON FOR EXAM: Female, 71 years old. Cough and SOB. COPD hx TECHNIQUE: PA and lateral views of the chest. COMPARISON: Comparison is made with prior study dated May 19, 2020. FINDINGS: EKG electrodes are seen. There is hyperinflation of the lungs consistent with chronic obstructive lung disease (COPD). Increased markings are now seen in the left upper lobe. This may represent an early infiltrate. Stable bullous formation in the right upper lobe. There is no demonstrated pleural abnormality. Normal size heart. Normal mediastinum and paige. Normal visualized pulmonary arteries. There is atherosclerotic calcification of the aortic arch with tortuosity. There is demineralization of the osseous structures. Normal visualized ribs, clavicles, and shoulders. There is no demonstrated abnormality of the visualized soft tissue structures of the upper abdomen. RAD/Chest PA and Lateral IMPRESSION: New infiltrate in the left upper lobe superimposed on the COPD and emphysematous changes. Electronically Signed: Darrius Lujan MD at 10:13 EDT ,
[2022-06-23] MEDS: Azithromycin 250 MG Tablet 500 MG PO (10:29)
== END 2022-06-23 10:36 | disposition home or self-care (01) ==
PROVIDERS: Emergency Provider Emergency Medicine; PCP Internal Medicine; Visit Provider Emergency Medicine
DX: J18.9 Pneumonia, unspecified organism (principal); J44.0 Chronic obstructive pulmonary disease with (acute) lower respiratory infection; J44.1 Chronic obstructive pulmonary disease with (acute) exacerbation; I42.9 Cardiomyopathy, unspecified; E11.9 Type 2 diabetes mellitus without complications; Z87.891 Personal history of nicotine dependence; I10 Essential (primary) hypertension; E78.5 Hyperlipidemia, unspecified; R09.02 Hypoxemia; R06.00 Dyspnea, unspecified
CPT/HCPCS: 71046; 80048; 84484; 85025; 87428; 93005; 94640; 99252; 99285; A4216; G0463

== ENCOUNTER 2022-07-19 13:33 | Emergency (ER) | payer MEDICARE, OTHER, SELFPAY ==
[2022-07-19 13:34] VITALS: BP 105/49; PULSE 91; RESP 20; TEMP 35.4; O2SAT 89; BMI 27.4
--- NOTE | 2022-07-19 14:19 | EKG12_ITS ---
Test Reason : DIZZINESS Blood Pressure : / mmHG Vent. Rate : 078 BPM Atrial Rate : 078 BPM P-R Int : 194 ms QRS Dur : 074 ms QT Int : 398 ms P-R-T Axes : 067 077 070 degrees QTc Int : 453 ms Normal sinus rhythm Normal ECG Confirmed by KAMILA BOLES, RAJINDER ([id number]), newspaper editor LOGAN HAIRSTON ([id number]) on 07/21/2022 9:16:04 AM Referred By: Confirmed By:RAJINDER TREVIÑO MD
--- NOTE | 2022-07-19 14:20 | EDS_ITS ---
HPI History of Present Illness Chief Complaint: Dizziness Detail of Chief Complaint: Dizziness and low blood pressure Informant: patient Narrative Narrative: Patient presents the emergency department complaint of some dizziness and low blood pressure today. Patient states that about half an hour ago she just started feeling somewhat funny and lightheaded and so she checked her blood pressure and it was 78 over 40s. Patient denies any chest pain. She does have history of COPD and has had a cough off and on for about a year. Patient states she was on antibiotics a week ago as well as steroids. Still has cough and at times bringing up some yellow phlegm. She denies fever. She denies urinary symptoms. Patient on 2 L nasal cannula O2 at all times for her COPD history. Patient denies any vomiting or diarrhea. She denies any blood in her stool or black tarry stool. [facility] Medical History Bradycardia with 41-50 beats per minute Cardiomyopathy COPD (chronic obstructive pulmonary disease) Essential hypertension HLD (hyperlipidemia) Obesity Home Medications albuterol sulfate 2.5 mg/3 mL (0.083 %) solution for nebulization 2.5 mg inhalation Q6H PRN PRN Sob &/Or Wheezing 12/16/16 [History Last Taken 12/16/16] aspirin 81 mg chewable tablet 81 mg PO DAILY@0800 HEALTH MAINTENANCE 12/16/16 [History Last Taken 12/16/16] calcium carbonate 500 mg-vitamin D3 10 mcg (400 unit) chewable tablet 1 each PO BID SUPPLEMENT 12/16/16 [History Last Taken 12/16/16] hydrochlorothiazide 25 mg tablet 25 mg PO DAILY DIURETIC/WATER PILL 12/16/16 [History Last Taken 12/16/16] metoprolol tartrate 50 mg tablet 50 mg PO BID BLOOD PRESSURE 12/16/16 [History L ast Taken 12/16/16] multivit with ptfewyna-hsuq-ZO-lutein 8 mg iron-400 mcg-300 mcg tablet 1 each PO DAILY SUPPLEMENT 12/16/16 [History Last Taken 12/16/16] phenylephrine 5 mg-dextromethorphan 10 mg-acetaminophen 325 mg capsule 1 each PO DAILY PRN COLD SYMPTOMS 12/16/16 [History Last Taken Unknown] simvastatin 20 mg tablet 20 mg PO QHS CHOLESTEROL 12/16/16 [History Last Taken 12/15/16] acetaminophen 325 mg tablet 650 mg PO Q6H PRN PRN Mild Pain (scale 0-3)/T>100.7 12/18/16 [Rx Last Taken Unknown] albuterol sulfate 90 mcg/actuation aerosol inhaler 90 mcg IH Q4H PRN PRN Sob &/Or Wheezing 02/16/19 [History Last Taken Unknown] cetirizine 10 mg disintegrating tablet 10 mg PO DAILY 02/16/19 [History Last Taken Unknown] fluticasone fur. 100 mcg-umeclid 62.5 mcg-vilant 25 mcg inhalat.powder 1 each IH DAILY 02/16/19 [History Last Taken Unknown] furosemide 20 mg tablet 20 mg PO DAILY PRN EDEMA 02/16/19 [History Last Taken Unknown] montelukast 10 mg tablet 10 mg PO DAILY 02/16/19 [History Last Taken Unknown] potassium chloride 20 mEq tablet,extended release(part/cryst) (Klor-Con M) ea PO 08/05/21 [History Last Taken Unknown] lisinopril 20 mg tablet 30 mg PO DAILY 06/08/22 [History Last Taken Unknown] azithromycin 250 mg tablet (Zithromax Z-Bib) 250 mg PO DAILY 4 days #4 tabs 06/23/22 [Rx Last Taken Unknown] prednisone 20 mg tablet 40 mg PO DAILY 10 days #20 tabs 06/23/22 [Rx Last Taken Unknown] Allergy/AdvReac Type Severity Reaction Status Date / Time atorvastatin [From Lipitor] Allergy Unknown Verified 06/23/22 08:59 lorazepam [From Ativan] Allergy Unknown Verified 06/23/22 08:59 mometasone furoate Allergy Unknown Verified 06/23/22 08:59 [From Nasonex] paroxetine [From Paxil] Allergy Unknown Verified 06/23/22 08:59 Sulfa (Sulfonamide Allergy Unknown Verified 06/23/22 08:59 Antibiotics) Family History Mother Lung disease Father Lung disease Surgical History History of lumpectomy History of partial hysterectomy Social History Smoking Status: Former smoker alcohol intake: never ROS ROS ED ROS Narrative Lightheadedness, low blood pressure Review of Systems ROS Unobtainable: other Constitutional Constitutional ED: Reports lethargy; Denies chills, fever(s), sweats or weight loss Eyes Eyes: Denies blurry vision, change in vision or diplopia ENT ENT ED: Denies rhinorrhea or sore throat Cardiovascular Cardiovascular: Denies chest pain, orthopnea or racing heartbeat Respiratory/Chest Respiratory/Chest: Reports cough; Denies dyspnea, dyspnea on exertion, orthopnea or sputum Gastrointestinal Gastrointestinal: Denies abdominal pain, diarrhea, nausea or vomiting Genitourinary Genitourinary ED: Denies dysuria, hematuria or urinary frequency Musculoskeletal Musculoskeletal: Denies arthralgias, back pain, myalgias or neck pain Integumentary Denies abscess, Abrasions or rash Neurologic Neurologic: Denies headache(s) or weakness Psychiatric Psychiatric: Denies anxiety, depression or suicidal thoughts Endocrine Endocrinology: Denies polydipsia, polyphagia or polyuria Hematologic/Lymphatic Hematologic/Lymphatic: Denies easy bleeding, easy bruising or lymphadenopathy Allergic/Immunologic Allergic/Immunologic ED: Denies mouth swelling, tongue swelling or urticaria EXAM Physical Exam Const Vital Signs: 07/19/22 13:34 07/19/22 15:22 07/19/22 13:40 Temperature 95.8 F L Temperature Source Temporal Pulse Rate 91 Pulse Rate [Lying] 86 Pulse Rate [Sitting (for 1 minute prior to obtaining)] 85 Pulse Rate [Standing (for 1 minute prior to obtaining)] 92 Respiratory Rate 20 H Respiratory Effort Normal Non-Labored Respiratory Pattern Normal Blood Pressure 105/49 L Blood Pressure [Lying] 106/50 L Blood Pressure [Sitting (for 1 minute prior to obtaining)] 115/54 L Blood Pressure [Standing (for 1 minute prior to obtaining)] 107/53 L Blood Pressure Mean 67 Blood Pressure Mean [Lying] 68 Blood Pressure Mean [Sitting (for 1 minute prior to obtaining)] 74 Blood Pressure Mean [Standing (for 1 minute prior to obtaining)] 71 Pulse Ox 89 Oxygen Delivery Method Nasal Cannula Oxygen Flow Rate (L/min) 2 07/19/22 15:34 Temperature Temperature Source Pulse Rate 90 Pulse Rate [Lying] Pulse Rate [Sitting (for 1 minute prior to obtaining)] Pulse Rate [Standing (for 1 minute prior to obtaining)] Respiratory Rate 17 Respiratory Effort Respiratory Pattern Blood Pressure 123/53 H Blood Pressure [Lying] Blood Pressure [Sitting (for 1 minute prior to obtaining)] Blood Pressure [Standing (for 1 minute prior to obtaining)] Blood Pressure Mean 76 Blood Pressure Mean [Lying] Blood Pressure Mean [Sitting (for 1 minute prior to obtaining)] Blood Pressure Mean [Standing (for 1 minute prior to obtaining)] Pulse Ox 97 Oxygen Delivery Method Nasal Cannula Oxygen Flow Rate (L/min) 3 Positive well nourished and well developed General Appearance ED: well developed and NAD HEENT Reports TM's clear and moist mucous membranes normocephalic and atraumatic; Negative for trauma or tenderness Tympanic Membrane ED: Yes TM's clear Eyes PERRL and EOMs intact bilaterally General Eye ED: Negative for pale conjunctiva or scleral icterus Neck no lymphadenopathy, supple and no JVD General: Negative for tenderness Chest Wall inspection of chest normal and palpation of chest normal Chest: Negative for tenderness Resp normal respiratory effort and clear to auscultation bilaterally Effort and Inspection: Negative for respiratory distress or pain with movement Auscultation: Negative for rhonchi, wheezes or diminished lung sounds Cardio regular rate, regular rhythm, S1 normal heart sound, S2 normal heart sound and no murmurs Peripheral Pulses: pulses 2+ throughout GI normal to inspection, nondistended, normoactive bowel sounds, soft to palpation, non-tender, non-distended and no masses Back/Spine no CVA tenderness and no thoracic nor lumbar tenderness Extremity normal to inspection General Extremety ED: Negative for edema General Extremity: Negative for edema Neuro oriented x3, CN's II-XII intact bilaterally, no sensory deficits noted and gait normal Sensorium / Orientation: awake, alert, oriented to person, oriented to place and oriented to time Motor Exam: strength 5/5 throughout and strength abnormal Psych mental status grossly normal Skin no rashes or lesions noted and no wounds MDM MDM MDM Narrative Medical decision making narrative: Patient clinically looks well. There is no hypotension in the emergency department. Patient had a negative Hallpike maneuver. Clinically she does not describe vertigo. Etiology of her symptoms unclear but entertain possibility for acute coronary syndrome versus dehydration versus vasovagal episode versus pneumonia or other infectious etiology. IV line established on arrival. Patient had a CBC with differential that showed a white count of 9.6 with hemoglobin 12.7 and platelet count of 237. Chemistry showed a sodium of 129 with a BUN of 30 and creatinine 1.31. Lactate was normal at 0.9 and EKG obtained arrival showed a sinus rhythm with a rate of 78 bpm with no acute ST segment changes and her troponin was normal. Chest x-ray showed no acute disease process. Patient was given a liter normal same fluid bolus. Orthostatic vital signs were negative. She felt markedly improved. At this point she will be discharged to home with diagnosis of dizziness and transient hypotension documented at home. Lab Data Attestation: I reviewed the patient's lab results. Labs: Laboratory Results - last 24 hr 07/19/22 07/19/22 07/19/22 14:25 14:25 14:25 WBC 9.6 RBC 4.18 L Hgb 12.7 Hct 36.9 L MCV 88.3 MCH 30.4 MCHC 34.4 RDW Std Deviation 43.1 RDW Coeff of Caroline 13.3 Plt Count 237 MPV 9.0 Immature Gran % (Auto) 0.700 Neut % (Auto) 67.5 Lymph % (Auto) 20.9 [place] % (Auto) 6.9 Eos % (Auto) 3.3 Baso % (Auto) 0.7 Absolute Neuts (auto) 6.4 Absolute Lymphs (auto) 2.00 Nucleated RBC % 0 Sodium 129 L Potassium 3.4 L Chloride 92 L Carbon Dioxide 31.0 Anion Gap 6 BUN 30 H Creatinine 1.31 H Estim Creat Clear Calc 33.52 Est GFR (MDRD) Af Amer 51 L Est GFR (MDRD) Non-Af 42 L BUN/Creatinine Ratio 22.9 H Glucose 103 Lactic Acid 0.9 Calcium 9.2 Troponin I High Sens 16 Urine Color Urine Clarity Urine pH Ur Specific [place] Urine Protein Urine Glucose (UA) Urine Ketones Urine Occult Blood Urine Nitrite Urine Bilirubin Urine Urobilinogen Ur Leukocyte Esterase Urine RBC Urine WBC Ur Squamous Epith Cells Urine Bacteria Urine Mucus 07/19/22 14:45 WBC RBC Hgb Hct MCV MCH MCHC RDW Std Deviation RDW Coeff of [place] Plt Count MPV Immature Gran % (Auto) Neut % (Auto) Lymph % (Auto) [place] % (Auto) Eos % (Auto) Baso % (Auto) Absolute Neuts (auto) Absolute Lymphs (auto) Nucleated RBC % Sodium Potassium Chloride Carbon Dioxide Anion Gap BUN Creatinine Estim Creat Clear Calc Est GFR (MDRD) Af Amer Est GFR (MDRD) Non-Af BUN/Creatinine Ratio Glucose Lactic Acid Calcium Troponin I High Sens Urine Color Straw Urine Clarity Sl. Cloudy Urine pH 7.0 Ur Specific [place] 1.010 Urine Protein Negative Urine Glucose (UA) Normal Urine Ketones Negative Urine Occult Blood 10 H Urine Nitrite Negative Urine Bilirubin Negative Urine Urobilinogen Normal Ur Leukocyte Esterase Negative Urine RBC 0-5 SEEN Urine WBC 0 SEEN Ur Squamous Epith Cells 0 SEEN Urine Bacteria 0 SEEN Urine Mucus 0 SEEN Radiography Chest X-Ray - ED: 1 View Diagnostic Testing: Clinical Impression(s) from Imaging Studies Chest X-Ray 07/19/22 14:35 IMPRESSION: Hyperinflation and COPD. No acute abnormality is seen. Electronically Signed: Darrius Lujan MD at 15:07 EDT , 1 view chest x-ray obtained interpreted by myself as hyperinflation with no evidence of infiltrate or pneumothorax or acute disease process. Radiology was in agreement. EKG Initial EKG: Attestation: I personally reviewed and interpreted this EKG as follows: Comments: Sinus rhythm with a rate of 78 bpm with no acute ST segment changes Discharge Plan Triage Chief Complaint: Dizziness ED Provider: Jose Carey Dx/Rx/DC Orders Clinical Impression: Dizziness, Transient hypotension Instructions: Hypotension Dc, ED Dizziness, Uncertain Cause Prescriptions: No Action potassium chloride [Klor-Con M20] 20 mEq tablet,ER particles/crystals PO Label Comments: TAKE 2 TABLETS IN THE MORNING AND 1 TABLET AT NIGHT lisinopril 20 mg tablet 30 mg PO DAILY albuterol sulfate 2.5 MG/3 ML solution for nebulization 2.5 mg INHALATION Q6H PRN PRN (Reason: Sob &/Or Wheezing) simvastatin 20 MG tablet 20 mg PO QHS metoprolol tartrate 50 MG tablet 50 mg PO BID hydrochlorothiazide 25 MG tablet 25 mg PO DAILY [id number]-[id number] 1 EACH capsule 1 each PO DAILY PRN (Reason: COLD SYMPTOMS) calcium carbonate-vitamin D3 1 EACH tablet,chewable 1 each PO BID hhdgefiy-stj-olwi-FA-lutein 1 EACH tablet 1 each PO DAILY aspirin 81 MG tablet,chewable 81 mg PO DAILY@0800 acetaminophen 325 MG tablet 650 mg PO Q6H PRN PRN (Reason: Mild Pain (scale 0-3)/T>100.7) 0RF montelukast 10 MG tablet 10 mg PO DAILY furosemide 20 MG tablet 20 mg PO DAILY PRN (Reason: EDEMA) albuterol sulfate 18 GM HFA aerosol inhaler 90 mcg IH Q4H PRN PRN (Reason: Sob &/Or Wheezing) Label Comments: INHALE 2 PUFFS INSTRUCTED EVERY 4 HOURS NEEDED FOR WHEEZING/SHORTNESS OF BREATH. cetirizine 10 MG tablet,disintegrating 10 mg PO DAILY [id number]-urfmzrrmn-ngdqoihi 1 EACH blister with device 1 each IH DAILY azithromycin [Zithromax Z-Bib] 250 mg tablet 250 mg PO DAILY 4 Days Qty: 4 0RF Rx Instructions: start on day 2 of therapy prednisone 20 mg tablet 40 mg PO DAILY 10 Days Qty: 20 0RF Primary Care Provider: Phyllis Smith Referrals: Phyllis Smith MD [Primary Care Provider] - 3-5 Days Disposition Disposition: Home, Self Care
[2022-07-19] MEDS: 0.9% Normal Saline 1,000 ML 1000 ML IV (14:26)
--- NOTE | 2022-07-19 14:35 | RAD_ITS ---
STUDY: X-RAY CHEST REASON FOR EXAM: Female, 71 years old. Lightheadedness and dizziness. TECHNIQUE: Single AP portable view of the chest. COMPARISON: Comparison is made with prior study dated June 23, 2022. FINDINGS: EKG electrodes are seen. There is hyperinflation of the lungs consistent with chronic obstructive lung disease (COPD). Stable decreased bronchovascular markings in both upper lobe. Prominent on the right side suggestive of a bullous formation. The previously seen increased markings in the left upper lobe have almost completely cleared most likely representing scarring. Stable increased markings at the right lung base suggestive of scarring. There is no demonstrated pleural abnormality. Normal size heart. Normal mediastinum and paige. Normal visualized pulmonary arteries. There is atherosclerotic calcification of the aortic arch with tortuosity. Normal visualized thoracic spine. Normal visualized ribs, clavicles, and shoulders. There is no demonstrated abnormality of the visualized soft tissue structures of the upper abdomen. RAD/Chest 1 View (Portable) IMPRESSION: Hyperinflation and COPD. No acute abnormality is seen. Electronically Signed: Darrius Lujan MD at 15:07 EDT ,
[2022-07-19 14:41] LABS: Absolute Neutrophil Count 6.4 X10^3/uL (2.0-7.7); Basophil# 0.07 X10^3/uL; Basophil% 0.7 % (0-1); Eosinophil# 0.32 X10^3/uL; Eosinophils% 3.3 % (0-5); Hematocrit 36.9 % (37-47); Hemoglobin 12.7 g/dL (12.0-15.0); Lymphocyte % 20.9 % (19-41); Mean Corp Hgb Conc 34.4 g/dL (32-36); Mean Corpuscular Hgb 30.4 pg (27.0-32.0); Mean Corpuscular Volume 88.3 fL (81-99); Monocyte# 0.66 X10^3/uL; Monocyte% 6.9 % (0-10); NRBC Flagged by Analyzer 0 % (0-5); Neutrophil # 6.44 X10^3/uL (2.7-7.7); Neutrophil % 67.5 % (47-70); Platelet Count 237 K/mm3 (150-450); RBC Distribution Width CV 13.3 % (11.6-14.6); RBC Distribution Width SD 43.1 fl (35.1-43.9); Red Blood Count 4.18 M/mm3 (4.2-5.4); White Blood Count 9.6 K/mm3 (4.4-11.0)
[2022-07-19 14:48] LABS: Bacteria 0 SEEN /hpf (None Seen); Mucous, Urine 0 SEEN /hpf (<or=2+); Squamous Epithelial Cells - UA 0 SEEN /hpf (5-10); White Blood Cells 0 SEEN /hpf (0-5)
[2022-07-19 14:52] LABS: Color, Urine Straw (Yellow); Glucose, Dipstick Normal (Normal); Ketone-Dipstick Negative (Negative); Leukocyte Esterase-Dipstick Negative /ul (Negative); Nitrite-Dipstick Negative (Negative); Occult Blood-Urine 10 /ul (Negative); Protein-Dipstick Negative (Negative); Urine Bilirubin Dipstick Negative (Negative); Urine Clarity Sl. Cloudy (Clear); Urine Urobilinogen Normal (Normal)
[2022-07-19 14:56] LABS: Anion Gap 6 (5-15); BUN 30 mg/dL (7-18); BUN/Creat Ratio 22.9 RATIO (10-20); Calcium,Total 9.2 mg/dL (8.5-10.1); Chloride 92 mmol/L (98-107); Creatinine, Serum 1.31 mg/dL (0.55-1.02); EST Glomerular Filtration Rate 42 mL/min (>60); Est Glom Filt Rate - Afr Amer 51 mL/min (>60); Estimated Creatinine Clearance 33.52 ml/min; Glucose 103 mg/dL (74-106); Potassium 3.4 mmol/L (3.5-5.1); Sodium Level 129 mmol/L (136-145); Troponin-I HS 16 pg/mL (3.0-54.0)
[2022-07-19 15:00] LABS: Red Blood Cells-Urine 0-5 SEEN /hpf (0-5)
[2022-07-19 15:10] LABS: Lactic Acid 0.9 mmol/L (0.4-1.9)
[2022-07-19 15:22] VITALS: BP 106/50; BP 107/53; BP 115/54; PULSE 85; PULSE 86; PULSE 92
[2022-07-19 15:34] VITALS: BP 123/53; PULSE 90; RESP 17; O2SAT 97
[2022-07-19 15:58] VITALS: BP 126/77; PULSE 82; RESP 17; O2SAT 92
== END 2022-07-19 15:59 | disposition home or self-care (01) ==
PROVIDERS: Emergency Provider Emergency Medicine; PCP Internal Medicine; Visit Provider Emergency Medicine
DX: R03.1 Nonspecific low blood-pressure reading (principal); J44.9 Chronic obstructive pulmonary disease, unspecified; I42.9 Cardiomyopathy, unspecified; Z87.891 Personal history of nicotine dependence; I10 Essential (primary) hypertension; E78.5 Hyperlipidemia, unspecified; R42 Dizziness and giddiness; Z99.81 Dependence on supplemental oxygen; Z79.899 Other long term (current) drug therapy; Z79.82 Long term (current) use of aspirin; Z79.51 Long term (current) use of inhaled steroids; Z90.710 Acquired absence of both cervix and uterus
CPT/HCPCS: 71045; 80048; 81001; 83605; 84484; 85025; 93005; 99285; J7030; A4216

== ENCOUNTER 2022-08-25 18:37 | Emergency (ER) | payer MEDICARE, OTHER, SELFPAY ==
[2022-08-25] VITALS (8 sets, daily range): BP systolic 125–147; BP diastolic 57–81; PULSE 73–86; RESP 15–31; TEMP 36.6; O2SAT 93–100; BMI 28.3
[2022-08-25] MEDS: DiphenhydrAMINE 50 MG/ML Syringe 25 MG IV (19:06)
[2022-08-25] MEDS: Famotidine 200 MG/20 ML MDV 20 MG in 0.9% Normal Saline (Pres. free 8 ML 300 MG IV (19:13)
[2022-08-25] MEDS: MethylPREDNISolone 125 MG/2 ML Vial IV (19:13)
--- NOTE | 2022-08-25 20:56 | EDS_ITS ---
HPI History of Present Illness Chief Complaint: Edema [facility] Medical History Bradycardia with 41-50 beats per minute Cardiomyopathy COPD (chronic obstructive pulmonary disease) Essential hypertension HLD (hyperlipidemia) Obesity Home Medications albuterol sulfate 2.5 mg/3 mL (0.083 %) solution for nebulization 2.5 mg inhalation Q6H PRN PRN Sob &/Or Wheezing 12/16/16 [History Last Taken 12/16/16] aspirin 81 mg chewable tablet 81 mg PO DAILY@0800 HEALTH MAINTENANCE 12/16/16 [History Last Taken 12/16/16] calcium carbonate 500 mg-vitamin D3 10 mcg (400 unit) chewable tablet 1 each PO BID SUPPLEMENT 12/16/16 [History Last Taken 12/16/16] hydrochlorothiazide 25 mg tablet 25 mg PO DAILY DIURETIC/WATER PILL 12/16/16 [History Last Taken 12/16/16] metoprolol tartrate 50 mg tablet 50 mg PO BID BLOOD PRESSURE 12/16/16 [History Last Taken 12/16/16] tkoxxtkb-udwb-yuap 8 mg-folic 400 mcg-K 50 mcg-lutein 300 mcg tablet 1 each PO DAILY SUPPLEMENT 12/16/16 [History Last Taken 12/16/16] phenylephrine 5 mg-dextromethorphan 10 mg-acetaminophen 325 mg capsule 1 each PO DAILY PRN COLD SYMPTOMS 12/16/16 [History Last Taken Unknown] simvastatin 20 mg tablet 20 mg PO QHS CHOLESTEROL 12/16/16 [History Last Taken 12/15/16] acetaminophen 325 mg tablet 650 mg (2 x 325 mg) PO Q6H PRN PRN Mild Pain (scale 0-3)/T>100.7 12/18/16 [Rx Last Taken Unknown] albuterol sulfate 90 mcg/actuation aerosol inhaler 90 mcg IH Q4H PRN PRN Sob &/Or Wheezing 02/16/19 [History Last Taken Unknown] cetirizine 10 mg disintegrating tablet 10 mg PO DAILY 02/16/19 [History Last Taken Unknown] fluticasone fur. 100 mcg-umeclid 62.5 mcg-vilant 25 mcg inhalat.powder 1 each IH DAILY 02/16/19 [History Last Taken Unknown] furosemide 20 mg tablet 20 mg PO DAILY PRN EDEMA 02/16/19 [History Last Taken Unknown] montelukast 10 mg tablet 10 mg PO DAILY 02/16/19 [History Last Taken Unknown] potassium chloride 20 mEq tablet,extended release(part/cryst) (Klor-Con M) ea PO 08/05/21 [History Last Taken Unknown] lisinopril 20 mg tablet 30 mg PO DAILY 06/08/22 [History Last Taken Unknown] azithromycin 250 mg tablet (Zithromax Z-Bib) 250 mg PO DAILY 4 days #4 tabs 06/23/22 [Rx Last Taken Unknown] prednisone 20 mg tablet 40 mg (2 x 20 mg) PO DAILY 10 days #20 tabs 06/23/22 [Rx Last Taken Unknown] losartan 25 mg tablet 25 mg PO DAILY #30 tabs 08/25/22 [Rx Last Taken Unknown] Allergy/AdvReac Type Severity Reaction Status Date / Time atorvastatin [From Lipitor] Allergy Unknown Verified 08/25/22 18:46 lorazepam [From Ativan] Allergy Unknown Verified 08/25/22 18:46 mometasone furoate Allergy Unknown Verified 08/25/22 18:46 [From Nasonex] paroxetine [From Paxil] Allergy Unknown Verified 08/25/22 18:46 Sulfa (Sulfonamide Allergy Unknown Verified 08/25/22 18:46 Antibiotics) lisinopril AdvReac Mild Angioedema Verified 08/25/22 18:46 Family History Mother Lung disease Father Lung disease Surgical History History of lumpectomy History of partial hysterectomy Social History Smoking Status: Former smoker alcohol intake: never EXAM Physical Exam Const Vital Signs: 08/25/22 18:41 08/25/22 18:43 08/25/22 18:44 Temperature 97.9 F Temperature Source Temporal Pulse Rate 86 82 Respiratory Rate 21 H 31 H Respiratory Effort Labored Respiratory Pattern Tachypnea Blood Pressure 147/72 H Blood Pressure Mean 97 Pulse Ox 97 99 Oxygen Delivery Method Nasal Cannula Nasal Cannula Oxygen Flow Rate (L/min) 4 4 08/25/22 18:45 08/25/22 19:12 08/25/22 20:00 Temperature Temperature Source Pulse Rate 77 74 Respiratory Rate 19 H 15 Respiratory Effort Respiratory Pattern Blood Pressure 125/57 H 143/63 H Blood Pressure Mean 79 89 Pulse Ox 100 100 100 Oxygen Delivery Method Nasal Cannula Nasal Cannula Nasal Cannula Oxygen Flow Rate (L/min) 3 3 3 08/25/22 21:00 08/25/22 22:14 08/25/22 22:30 Temperature Temperature Source Pulse Rate 78 78 73 Respiratory Rate 23 H 23 H 18 Respiratory Effort Respiratory Pattern Blood Pressure 132/81 H 129/69 H 136/67 H Blood Pressure Mean 98 89 Pulse Ox 99 93 98 Oxygen Delivery Method Nasal Cannula Nasal Cannula Oxygen Flow Rate (L/min) 3 3 [facility] [place] Narrative Medical decision making narrative: HISTORY OF PRESENT ILLNESS: 72-year-old female here with swallowing timing started just prior to arrival. History of hypertension on lisinopril. Denies prior history of angioedema. REVIEW OF SYSTEMS: Pertinent positives: Tongue swelling Pertinent negatives: Trismus, drooling, shortness of breath or difficulty swallowing, rash hives nausea PHYSICAL EXAM: Nursing triage notes reviewed, Vital signs reviewed Constitutional: please see mdm HENT: MMM, right lateral tongue swelling, posterior oropharynx patent, patient controlling her secretions. No trismus Eyes: Pupils equal round and reactive to light, Extraocular muscles intact Neck: No stridor, no JVD, full neck ROM Lungs: Clear to auscultation, No wheezing or rales. No increased work of breathing, no conversational dyspnea, no accessory muscle use, no nasal flaring. No respiratory distress noted Heart: Regular rate and rhythm, No murmurs, No rubs and No gallops, 2+ distal pulses (radial, femoral, posterior tibial) in all extremities Abdomen: Soft, there is no tenderness, rigidity, rebound or guarding, no obvious peritoneal signs, no palpable pulsatile abdominal masses, no auscultated abdominal bruit : No CVAT Extremities: No edema Neuro: No focal neurological deficits, cranial nerves II through XII intact, 5/5 strength in all extremities. Intact sensation to light touch in all extremities, 2+ reflexes bilateral patella tendons. Normal gait. No ataxia. Skin: No rash or lesions noted MEDICAL DECISION MAKING: Chief Complaint: Tongue swelling External records reviewed: Patient on lisinopril 30 mg daily Factors affecting care: Hypertension Social determinants of health: Elderly History obtained from others: The patient's Consults: none ALL IMAGES (IF OBTAINED) HAVE BEEN PERSONALLY REVIEWED AND INTERPRETED BY MYSELF. MDM Narrative: Patient was hemodynamically stable, afebrile, nontoxic-appearing. She was protecting her airway. No sign of allergic reaction or anaphylaxis. She was on her baseline nasal cannula oxygen. Noted right lateral tongue swelling but no posterior oropharyngeal swelling. No stridor, no drooling, no trismus. Lungs were clear abdomen was soft. Gave empiric allergy treatment in the form of steroids, Pepcid and Benadryl. Patient is observed in the emergency department for approximately 4 hours with no worsening of symptoms. There is no indication for epinephrine, FFP, TXA or C1 esterase inhibitor. Patient was given instructions to discontinue taking lisinopril. She is prescribed losartan in its place. She is given PCP follow-up. Strict return precautions were discussed. The patient and/or family, caregivers express understanding. The patient and/or family, caregivers agrees with the plan. Total critical care time today provided was at least 0 minutes. This excludes separately billable procedures. Critical care time (if documented) is secondary to the patient having high probability of clinically significant/life threatening deterioration in the patient's condition which required my urgent intervention. Shared decision making: I will have a discussion with the patient and or visitors regarding risk/benefits of further testing or admission. They will be made aware of of the risk/benefits inherent in this decision they will be given the opportunity to voice understanding. Discharge Plan Triage Chief Complaint: Edema ED Provider: Melchor Starr Dx/Rx/DC Orders Clinical Impression: Angioedema of tongue Instructions: ED Angioedema Prescriptions: New losartan 25 mg tablet 25 mg PO DAILY Qty: 30 0RF No Action potassium chloride [Klor-Con M20] 20 mEq tablet,ER particles/crystals PO Patient Comments: TAKE 2 TABLETS IN THE MORNING AND 1 TABLET AT NIGHT lisinopril 20 mg tablet 30 mg PO DAILY albuterol sulfate 2.5 MG/3 ML solution for nebulization 2.5 mg INHALATION Q6H PRN PRN (Reason: Sob &/Or Wheezing) simvastatin 20 MG tablet 20 mg PO QHS metoprolol tartrate 50 MG tablet 50 mg PO BID hydrochlorothiazide 25 MG tablet 25 mg PO DAILY npzjjywsyxhyc-PD-ndofbdmjjylol 1 EACH capsule 1 each PO DAILY PRN (Reason: COLD SYMPTOMS) calcium carbonate-vitamin D3 1 EACH tablet,chewable 1 each PO BID vnyfxphn-hvk-eunn-FA-vit K-lut 1 EACH tablet 1 each PO DAILY aspirin 81 MG tablet,chewable 81 mg PO DAILY@0800 acetaminophen 325 MG tablet 650 mg PO Q6H PRN PRN (Reason: Mild Pain (scale 0-3)/T>100.7) 0RF montelukast 10 MG tablet 10 mg PO DAILY furosemide 20 MG tablet 20 mg PO DAILY PRN (Reason: EDEMA) albuterol sulfate 18 GM HFA aerosol inhaler 90 mcg IH Q4H PRN PRN (Reason: Sob &/Or Wheezing) Patient Comments: INHALE 2 PUFFS INSTRUCTED EVERY 4 HOURS NEEDED FOR WHEEZING/SHORTNESS OF BREATH. cetirizine 10 MG tablet,disintegrating 10 mg PO DAILY vhltejdjbsb-vewpwzntn-hkevlrns 1 EACH blister with device 1 each IH DAILY azithromycin [Zithromax Z-Bib] 250 mg tablet 250 mg PO DAILY 4 Days Qty: 4 0RF Rx Instructions: start on day 2 of therapy prednisone 20 mg tablet 40 mg PO DAILY 10 Days Qty: 20 0RF Primary Care Provider: Phyllis Smith Referrals: Phyllis Smith MD [Primary Care Provider] - Activity Restrictions/Additional Instructions: Thank you for trusting us with your care today! Please discontinue taking lisinopril. Please start taking losartan 25 [address] daily [address] its place. Please return to the emergency department if your symptoms change or worsen. Specifically if you start drooling or if you cannot control your secretions, develop shortness of breath, or feel like your throat is closing, Please follow with your primary care physician for further outpatient evaluation and management medication titration. Disposition Disposition: Home, Self Care Discharge Date/Time: 08/25/22 22:35
== END 2022-08-25 22:35 | disposition home or self-care (01) ==
PROVIDERS: Emergency Provider Emergency Medicine; PCP Internal Medicine; Visit Provider Emergency Medicine
DX: T78.3XXA Angioneurotic edema, initial encounter (principal); J44.9 Chronic obstructive pulmonary disease, unspecified; I10 Essential (primary) hypertension; Z87.891 Personal history of nicotine dependence; E78.5 Hyperlipidemia, unspecified; Z79.899 Other long term (current) drug therapy; Z79.82 Long term (current) use of aspirin; Z79.51 Long term (current) use of inhaled steroids; Z90.710 Acquired absence of both cervix and uterus
CPT/HCPCS: 99282; J7030; A4216; J3490

== ENCOUNTER 2024-02-21 13:23 | Emergency (ER) | payer MEDICARE, OTHER, SELFPAY ==
[2024-02-21 13:29] VITALS: BP 139/58; PULSE 95; RESP 20; TEMP 38.1; O2SAT 97
[2024-02-21 13:31] VITALS: BP 139/58; PULSE 98; RESP 20; TEMP 38.1; O2SAT 97
[2024-02-21 13:57] LABS: Absolute Lymphocyte Count 0.63 X10^3/uL (0.83-4.51); Absolute Neutrophil Count 12.8 X10^3/uL (2.0-7.7); Basophil# 0.04 X10^3/uL; Basophil% 0.3 % (0-1); Eosinophil# 0.92 X10^3/uL; Eosinophils% 5.9 % (0-5); Hematocrit 35.6 % (37-47); Hemoglobin 12.4 g/dL (12.0-15.0); Lymphocyte # 0.63 X10^3/ul (0.83-4.51); Mean Corp Hgb Conc 34.8 g/dL (32-36); Mean Corpuscular Hgb 30.2 pg (27.0-32.0); Mean Corpuscular Volume 86.8 fL (81-99); Mean Platelet Vol. 9.5 fl (6.2-12.0); Monocyte# 1.05 X10^3/uL; Monocyte% 6.7 % (0-10); NRBC Flagged by Analyzer 0 % (0-5); Neutrophil # 12.81 X10^3/uL (2.7-7.7); Neutrophil % 82.3 % (47-70); POSITIVE MORPHOLOGY YES; Platelet Count 170 K/mm3 (150-450); White Blood Count 15.6 K/mm3 (4.4-11.0)
[2024-02-21 14:09] LABS: Anion Gap 9 (5-15); BUN 33 mg/dL (7-18); Calcium,Total 9.5 mg/dL (8.5-10.1); Chloride 90 mmol/L (98-107); Creatinine, Serum 1.83 mg/dL (0.55-1.02); EST Glomerular Filtration Rate 29 mL/min (>60); Est Glom Filt Rate - Afr Amer 35 mL/min (>60); Glucose 137 mg/dL (74-106); Potassium 3.6 mmol/L (3.5-5.1); Sodium Level 127 mmol/L (136-145)
[2024-02-21 15:07] LABS: Differential Indicated SCAN CRITERIA MET; Polychromasia 1+
[2024-02-21 15:08] LABS: Platelet Estimate A (ADEQ)
--- NOTE | 2024-02-21 15:46 | ED.VIS.DYS ---
HPI History of Present Illness Chief Complaint: Shortness of Breath Detail of Chief Complaint: Shortness of breath past week worse past couple of days Informant: patient and spouse/S.O. Onset/Context/Timing Onset: Days Context: gradual Timing: Continuous and Waxes and wanes Quality: Positive for Dyspnea on exertion and Wheezing; Negative for Orthopnea or PND Current Severity: Mild Maximum Severity: Moderate Worsened by: Exertion and Coughing; Not Worsened By Lying flat Relieved by: Nothing Associated Symptoms cough, rhinorrhea, chills and yellow sputum; Negative for post nasal drip, ear pain, fever, sore throat, subjective or sweats Chest Pain: Positive for None Narrative Narrative: Patient is a 73-year-old woman with history of cardiomyopathy, essential hypertension, hyperlipidemia, end-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 She also endorses mild congestion. She denies ill contacts. She has not been on prednisone in the last 3 to 6 months. She has been using her inhaler more frequently. She denies history of VTE. Denies leg pain, swelling discoloration. She has no risk factors for VTE. She denies abdominal pain, nausea, vomiting or diarrhea. She denies urologic symptoms. PE Risk Factors: Negative for Cancer, OCP + Smoking + > 35, Prior DVT or PE, Recent immobilization, Recent surgery or Recent travel Prior similar symptoms: Yes (COPD.) Recent Illness/Hospitalization: No PFSH PFSH Medical History Cardiomyopathy Obesity Essential hypertension Bradycardia with 41-50 beats per minute COPD (chronic obstructive pulmonary disease) HLD (hyperlipidemia) Home Medications ?Medication ?Instructions ?Recorded ?Last Taken ?Type albuterol sulfate 2.5 mg/3 mL 2.5 mg inhalation Q6H PRN PRN Sob 12/16/16 12/16/16 History (0.083 %) solution for nebulization &/Or Wheezing aspirin 81 mg chewable tablet 81 mg PO DAILY@0800 HEALTH 12/16/16 12/16/16 History MAINTENANCE calcium 500 mg (as carbonate)-vit 1 each PO BID SUPPLEMENT 12/16/16 12/16/16 History D3 10 mcg (400 unit) chewable tablet hydrochlorothiazide 25 mg tablet 25 mg PO DAILY DIURETIC/WATER PILL 12/16/16 12/16/16 History metoprolol tartrate 50 mg tablet 50 mg PO BID BLOOD PRESSURE 12/16/16 12/16/16 History fubpxqcl-nzkg-gjgw 8 mg-folic 400 1 each PO DAILY SUPPLEMENT 12/16/16 12/16/16 History mcg-K 50 mcg-lutein 300 mcg tablet phenylephrine 5 1 each PO DAILY PRN COLD SYMPTOMS 12/16/16 Unknown History mg-dextromethorphan 10 mg-acetaminophen 325 mg capsule simvastatin 20 mg tablet 20 mg PO QHS CHOLESTEROL 12/16/16 12/15/16 History acetaminophen 325 mg tablet 650 mg (2 x 325 mg) PO Q6H PRN PRN 12/18/16 Unknown Rx Mild Pain (scale 0-3)/T>100.7 albuterol sulfate 90 mcg/actuation 90 mcg IH Q4H PRN PRN Sob &/Or 02/16/19 Unknown History aerosol inhaler Wheezing cetirizine 10 mg disintegrating 10 mg PO DAILY 02/16/19 Unknown History tablet fluticasone fur. 100 mcg-umeclid 1 each IH DAILY 02/16/19 Unknown History 62.5 mcg-vilant 25 mcg inhalat.powder furosemide 20 mg tablet 20 mg PO DAILY PRN EDEMA 02/16/19 Unknown History montelukast 10 mg tablet 10 mg PO DAILY 02/16/19 Unknown History potassium chloride 20 mEq ea PO 08/05/21 Unknown History tablet,extended release(part/cryst) (Klor-Con M) prednisone 20 mg tablet 40 mg (2 x 20 mg) PO DAILY 10 days 06/23/22 Unknown Rx #20 tabs losartan 25 mg tablet 25 mg PO DAILY #30 tabs 08/25/22 Unknown Rx doxycycline monohydrate 100 mg 100 mg PO BID #10 CAPSULES 02/21/24 Unknown Rx capsule prednisone 20 mg tablet 60 mg (3 x 20 mg) PO DAILY #15 02/21/24 Unknown Rx TABLETS Allergy/AdvReac Type Severity Reaction Status Date / Time atorvastatin (From Lipitor) Allergy Unknown Verified 02/21/24 13:28 lorazepam (From Ativan) Allergy Unknown Verified 02/21/24 13:28 mometasone furoate (From Allergy Unknown Verified 02/21/24 13:28 Nasonex) paroxetine (From Paxil) Allergy Unknown Verified 02/21/24 13:28 Sulfa (Sulfonamide Allergy Unknown Verified 02/21/24 13:28 Antibiotics) lisinopril AdvReac Mild Angioedema Verified 02/21/24 13:28 Family History Mother Lung disease Father Lung disease Surgical History History of partial hysterectomy History of lumpectomy Social History (Updated 02/21/24 @ 15:[address] Brian Ramires MD) household members: spouse Smoking Status: Former smoker alcohol intake: never ROS ROS ED Constitutional Constitutional ED: Reports chills Eyes Eyes: Denies blurry vision or change in vision ENT ENT ED: Denies ear pain, rhinorrhea or sore throat Cardiovascular Cardiovascular: Denies chest pain, orthopnea, palpitations or paroxysmal nocturnal dyspnea Respiratory/Chest Respiratory/Chest: Reports cough, dyspnea, dyspnea on exertion and sputum; Denies orthopnea or paroxysmal nocturnal dyspnea Gastrointestinal Gastrointestinal: Denies abdominal pain, diarrhea, nausea or vomiting Genitourinary Genitourinary ED: Denies dysuria, hematuria or urinary frequency Musculoskeletal Musculoskeletal: Denies back pain or neck pain Integumentary Denies rash Neurologic Neurologic: Denies headache(s) or paresthesias Psychiatric Psychiatric: Denies anxiety Endocrine Endocrinology: Denies cold intolerance or heat intolerance Hematologic/Lymphatic Hematologic/Lymphatic: Denies easy bleeding or easy bruising EXAM Physical Exam Const Vital Signs: 02/21/24 13:29 02/21/24 13:31 02/21/24 15:57 Temperature 100.6 F H 100.6 F H Temperature Source Oral Oral Pulse Rate 95 98 Respiratory Rate 20 H 20 H Respiratory Effort Respiratory Depth Respiratory Pattern Blood Pressure 139/58 H 139/58 H Blood Pressure Mean 85 85 Pulse Ox 97 97 96 Oxygen Delivery Method Nasal Cannula Nasal Cannula Nasal Cannula Oxygen Flow Rate (L/min) 6 6 5 02/21/24 15:57 02/21/24 16:25 02/21/24 16:25 Temperature 100.6 F H Temperature Source Oral Pulse Rate 87 86 Respiratory Rate 20 H 20 H 18 Respiratory Effort Respiratory Depth Respiratory Pattern Tachypnea Blood Pressure 117/54 L Blood Pressure Mean 75 Pulse Ox 98 97 Oxygen Delivery Method Nasal Cannula Nasal Cannula Oxygen Flow Rate (L/min) 5 5 02/21/24 16:25 02/21/24 17:00 Temperature 100.6 F H Temperature Source Oral Pulse Rate 104 H Respiratory Rate 24 H Respiratory Effort Short of Breath Respiratory Depth Normal Respiratory Pattern Tachypnea Blood Pressure 120/59 L Blood Pressure Mean 79 Pulse Ox 95 Oxygen Delivery Method Nasal Cannula Nasal Cannula Oxygen Flow Rate (L/min) 5 5 Positive well nourished and well developed General Appearance ED: well developed and NAD; Negative for pallor HEENT Reports moist mucous membranes HEENT Narrative: Head is atraumatic normocephalic. Ears normal. Nares patent. Posterior pharynx out erythema or exudate. Eyes PERRL and EOMs intact bilaterally General Eye ED: Negative for pale conjunctiva or scleral icterus Neck no lymphadenopathy, supple, no meningeal signs and no JVD Neck Narrative: Trachea is midline. There is no stridor. Resp normal respiratory effort and No clear to auscultation bilaterally Auscultation: wheezes expiratory wheezes and throughout Cardio regular rate, regular rhythm, S1 normal heart sound, S2 normal heart sound and no murmurs GI non-tender, non-distended and no masses Back/Spine no CVA tenderness Extremity normal to inspection Extremity Narrative: There is no asymmetry, swelling, discoloration, leg vein distention, palpable cords or tenderness along the distribution of the deep venous system. Neuro oriented x3 and CN's II-XII intact bilaterally [place] Coma Scale: document GCS findings Spontaneous Obeys Commands Oriented 15 Sensorium / Orientation: alert Psych mental status grossly normal Skin no wounds and skin turgor normal General Skin Exam: Negative for pallor Lesions: no lesions Rashes: no rashes MDM MDM MDM Narrative Medical decision making narrative: Patient has exacerbation of COPD versus pneumonia versus viral infection causing exacerbation COPD. Since she is febrile workup was initiated to determine if there is any evidence of endorgan dysfunction. Will obtain chest x-ray to evaluate for pneumonia. CBC to assess white count, basic metabolic panel to assess for endorgan dysfunction. Lactate was ordered as well. Patient was treated with prednisone, DuoNeb and albuterol nebulized treatments. History & Record Review Additional record(s) reviewed:: Prior ED visit (Patient was seen August 2022 for angioedema of the tongue. She was seen July 2022 for dizziness. She was seen June 2022 for COPD exacerbation as well as January 2022.) and Prior labs Lab Data Attestation: I reviewed the patient's lab results. Lab results narrative: White count is elevated 15.6 thousand. There is a shift with no bandemia. BUN and creatinine are elevated at 33 and 1.83. This is slightly higher than baseline. Estimated GFR is 29. Glucose is elevated 137 with normal CO2 anion gap. Rapid antigen for COVID, influenza and flu are negative. Lactate is normal at 1.2. Labs: Laboratory Results - last 24 hr 02/21/24 02/21/24 13:37 15:58 WBC 15.6 H RBC 4.10 L Hgb 12.4 Hct 35.6 L MCV 86.8 MCH 30.2 MCHC 34.8 RDW Std Deviation 41.0 RDW Coeff of Caroline 13.0 Plt Count 170 MPV 9.5 Immature Gran % (Auto) 0.800 Neut % (Auto) 82.3 H Lymph % (Auto) 4.0 L [place] % (Auto) 6.7 Eos % (Auto) 5.9 H Baso % (Auto) 0.3 Absolute Neuts (auto) 12.8 H Absolute Lymphs (auto) 0.63 L Nucleated RBC % 0 Platelet Estimate A Polychromasia 1+ Sodium 127 L Potassium 3.6 Chloride 90 L Carbon Dioxide 29.0 Anion Gap 9 BUN 33 H Creatinine 1.83 H Est GFR (MDRD) Af Amer 35 L Est GFR (MDRD) Non-Af 29 L BUN/Creatinine Ratio 18.0 Glucose 137 H Lactic Acid 1.2 Calcium 9.5 Radiography Chest X-Ray - ED: 2 View and Read by ED Physician (Chronic changes. Flattening of the diaphragm. Small effusion noted on the lateral. Comparison was August 06 single view. There is no infiltrate. Mediastinum appears normal. There are degenerative changes of the dorsal spine noted. This was independent reviewed interpreted by me at 1704.) Diagnostic Testing: Clinical Impression(s) from Imaging Studies Chest X-Ray 02/21/24 16:50 IMPRESSION: 1. Question new small right pleural effusion. 2. No significant interval change. 3. Smoking-related lung changes. . Electronically Signed: Pedro Cope MD at 17:13 EST , Rhythm Strip Rhythm Strip: Sinus Rhythm Rate: 99 Ectopy: None Differential Diagnosis Chest pain/SOB: pulmonary embolism Reason(s) PE less likely: Positive for not tachycardic and not hypoxic, ACS ACS: Positive for history not suggestive of ischemia pain, pneumothorax Reason(s) pneumothorax less likely: Positive for bilateral breath sounds and [employer] withhout PTX, pneumonia Reason(s) pneumonia less likely: Positive for no infiltrate on CXR, aortic dissection Reason(s) Aortic dissection less likely:: Positive for normal vascular exam, no history of HTN, normal neurological exam, no significant risk factors for dissection, no widened mediastinum on CXR, pain not sudden onset, no ripping/tearing pain, no pain to back and blood pressure appropriate in ED and CHF Reason(s) CHF less likely: Positive for no significant peripheral edema, no orthopnea, no evidence of fluid overload on CXR and BtNP not significantly elevated over normal/baseline Treatment and Re-Evaluation :: Patient was reassessed at 1743. Patient is wheeze free. Will discharge with burst of prednisone, antibiotics and close follow-up with her doctor. Discharge Plan Triage Chief Complaint: Shortness of Breath ED Provider: Brian Ramires Dx/Rx/DC Orders Clinical Impression: COPD exacerbation, Cardiomyopathy, HLD (hyperlipidemia), Essential hypertension, Acute bronchospasm, Fever in adult Instructions: ED COPD Flare Prescriptions: New prednisone 20 mg tablet 60 mg PO DAILY Qty: 15 0RF doxycycline monohydrate 100 mg capsule 100 mg PO BID Qty: 10 0RF No Action potassium chloride [Klor-Con M20] 20 mEq tablet,ER particles/crystals PO Patient Comments: TAKE 2 TABLETS IN THE MORNING AND 1 TABLET AT NIGHT albuterol sulfate 2.5 MG/3 ML solution for nebulization 2.5 mg INHALATION Q6H PRN PRN (Reason: Sob &/Or Wheezing) simvastatin 20 MG tablet 20 mg PO QHS metoprolol tartrate 50 MG tablet 50 mg PO BID hydrochlorothiazide 25 MG tablet 25 mg PO DAILY snatbuhctfvjw-MJ-eppykukcyqict 1 EACH capsule 1 each PO DAILY PRN (Reason: COLD SYMPTOMS) calcium carbonate-vitamin D3 1 EACH tablet,chewable 1 each PO BID jgmwbiew-qap-lnoi-FA-vit K-lut 1 EACH tablet 1 each PO DAILY aspirin 81 MG tablet,chewable 81 mg PO DAILY@0800 acetaminophen 325 MG tablet 650 mg PO Q6H PRN PRN (Reason: Mild Pain (scale 0-3)/T>100.7) 0RF montelukast 10 MG tablet 10 mg PO DAILY furosemide 20 MG tablet 20 mg PO DAILY PRN (Reason: EDEMA) albuterol sulfate 18 GM HFA aerosol inhaler 90 mcg IH Q4H PRN PRN (Reason: Sob &/Or Wheezing) Patient Comments: INHALE 2 PUFFS INSTRUCTED EVERY 4 HOURS NEEDED FOR WHEEZING/SHORTNESS OF BREATH. cetirizine 10 MG tablet,disintegrating 10 mg PO DAILY aedhfxlxbif-vdfjykbrd-ipmcehhs 1 EACH blister with device 1 each IH DAILY prednisone 20 mg tablet 40 mg PO DAILY 10 Days Qty: 20 0RF losartan 25 mg tablet 25 mg PO DAILY Qty: 30 0RF Primary Care Provider: Phyllis Smith Referrals: Phyllis Smith MD [Primary Care Provider] - 3-5 Days Activity Restrictions/Additional Instructions: 1. 2 puffs of inhaler every 2-4 hours while awake for the next 3 days then every 4-6 hours 2. Take medication as prescribed. Print Language: [place] Disposition Disposition: Home, Self Care
[2024-02-21] MEDS: predniSONE 20 MG Tablet 60 MG PO (15:52)
[2024-02-21] MEDS: Ipratropium/Albuterol Sulfate 3 ML AMPUL.NEB INHALATION (15:53)
[2024-02-21] MEDS: Albuterol 2.5 MG/3 ML VIAL.NEB. INHALATION ×3 (15:53)
[2024-02-21 15:57] VITALS: PULSE 87; RESP 20; O2SAT 96
[2024-02-21 16:25] VITALS: BP 117/54; PULSE 86; RESP 18; RESP 20; TEMP 38.1; O2SAT 97; O2SAT 98
[2024-02-21 16:45] LABS: Lactic Acid 1.2 mmol/L (0.4-1.9)
--- NOTE | 2024-02-21 16:50 | RAD_ITS ---
EXAM: XR CHEST, 2 VIEWS CLINICAL INDICATION: Dyspnea, productive cough, wheezing Hx COPD TECHNIQUE: Frontal and lateral views of the chest. COMPARISON: Jul 19, 2022 FINDINGS: Emphysematous changes are redemonstrated. No consolidation. Small right pleural effusion suspected. No pneumothorax. Unchanged cardiomediastinal/hilar appearance. Bones are also unchanged. RAD/Chest PA and Lateral IMPRESSION: 1. Question new small right pleural effusion. 2. No significant interval change. 3. Smoking-related lung changes. . Electronically Signed: Pedro Cope MD at 17:13 EST ,
[2024-02-21 17:00] VITALS: BP 120/59; PULSE 104; RESP 24; TEMP 38.1; O2SAT 95
[2024-02-21 17:42] VITALS: BMI 27.3
[2024-02-21] MEDS: Doxycycline 100 MG CAPSULE PO (17:55)
[2024-02-21 17:56] VITALS: BP 120/57; PULSE 107; RESP 17; TEMP 37.5; O2SAT 98
== END 2024-02-21 18:06 | disposition home or self-care (01) ==
PROVIDERS: Emergency Provider Emergency Medicine; PCP Internal Medicine; Visit Provider Emergency Medicine
DX: J44.1 Chronic obstructive pulmonary disease with (acute) exacerbation (principal); I42.9 Cardiomyopathy, unspecified; I10 Essential (primary) hypertension; R50.9 Fever, unspecified; E78.5 Hyperlipidemia, unspecified; Z90.710 Acquired absence of both cervix and uterus; J98.01 Acute bronchospasm; Z87.891 Personal history of nicotine dependence; Z99.81 Dependence on supplemental oxygen
CPT/HCPCS: 71046; 80048; 83605; 85025; 87631; 94640; 94760; 99284

== ENCOUNTER 2024-02-24 08:33 | Emergency (ER) | payer MEDICARE, OTHER, SELFPAY ==
[2024-02-24] VITALS (9 sets, daily range): BP systolic 135–149; BP diastolic 58–74; PULSE 85–110; RESP 16–18; TEMP 36.6–36.7; O2SAT 95–100; BMI 27.6
--- NOTE | 2024-02-24 09:23 | EDS_ITS ---
HPI History of Present Illness Chief Complaint: Shortness of Breath Informant: patient and spouse/S.O. Narrative Narrative: 73-year-old female with COPD and a recent respiratory illness states she was seen here 3 days ago for the same thing and the medicines are not helping. Her main complaints are pain in her right abdomen, right posterior and lateral rib cage with coughing and moving, and the persistent cough. It is rarely productive. No fevers or chills. She does have dyspnea that she feels is her COPD but she has been using her nebulizer and it helps temporarily. 3 days ago she was prescribed prednisone and doxycycline she has been taking that. She thinks the illness has been total maybe 2 weeks. She was told she did not have pneumonia or COVID/influenza. No known recent sick contacts. No leg edema or orthopnea. She is on a 6 L nasal cannula at home. [facility] Medical History Cardiomyopathy Obesity Essential hypertension Bradycardia with 41-50 beats per minute COPD (chronic obstructive pulmonary disease) HLD (hyperlipidemia) Home Medications ?Medication ?Instructions ?Recorded ?Last Taken ?Type albuterol sulfate 2.5 mg/3 mL 2.5 mg inhalation Q6H PRN PRN Sob 12/16/16 12/16/16 History (0.083 %) solution for nebulization &/Or Wheezing aspirin 81 mg chewable tablet 81 mg PO DAILY@0800 HEALTH 12/16/16 12/16/16 History MAINTENANCE calcium 500 mg (as carbonate)-vit 1 each PO BID SUPPLEMENT 12/16/16 12/16/16 History D3 10 mcg (400 unit) chewable tablet hydrochlorothiazide 25 mg tablet 25 mg PO DAILY DIURETIC/WATER PILL 12/16/16 12/16/16 History metoprolol tartrate 50 mg tablet 50 mg PO BID BLOOD PRESSURE 12/16/16 12/16/16 History lpjucgod-ycdf-myxw 8 mg-folic 400 1 each PO DAILY SUPPLEMENT 12/16/16 12/16/16 History mcg-K 50 mcg-lutein 300 mcg tablet phenylephrine 5 1 each PO DAILY PRN COLD SYMPTOMS 12/16/16 Unknown History mg-dextromethorphan 10 mg-acetaminophen 325 mg capsule simvastatin 20 mg tablet 20 mg PO QHS CHOLESTEROL 12/16/16 12/15/16 History acetaminophen 325 mg tablet 650 mg (2 x 325 mg) PO Q6H PRN PRN 12/18/16 Unknown Rx Mild Pain (scale 0-3)/T>100.7 albuterol sulfate 90 mcg/actuation 90 mcg IH Q4H PRN PRN Sob &/Or 02/16/19 Unknown History aerosol inhaler Wheezing cetirizine 10 mg disintegrating 10 mg PO DAILY 02/16/19 Unknown History tablet fluticasone fur. 100 mcg-umeclid 1 each IH DAILY 02/16/19 Unknown History 62.5 mcg-vilant 25 mcg inhalat.powder furosemide 20 mg tablet 20 mg PO DAILY PRN EDEMA 02/16/19 Unknown History montelukast 10 mg tablet 10 mg PO DAILY 02/16/19 Unknown History potassium chloride 20 mEq ea PO 08/05/21 Unknown History tablet,extended release(part/cryst) (Klor-Con M) prednisone 20 mg tablet 40 mg (2 x 20 mg) PO DAILY 10 days 06/23/22 Unknown Rx #20 tabs losartan 25 mg tablet 25 mg PO DAILY #30 tabs 08/25/22 Unknown Rx prednisone 20 mg tablet 60 mg (3 x 20 mg) PO DAILY #15 02/21/24 Unknown Rx TABLETS azithromycin 250 mg tablet See Rx Instructions PO .COMPLEX #6 02/24/24 Unknown Rx tabs tramadol 50 mg tablet 50 mg PO Q8H PRN Pain 3 days #9 02/24/24 Unknown Rx tabs Allergy/AdvReac Type Severity Reaction Status Date / Time atorvastatin (From Lipitor) Allergy Unknown Verified 02/24/24 08:42 lorazepam (From Ativan) Allergy Unknown Verified 02/24/24 08:42 mometasone furoate (From Allergy Unknown Verified 02/24/24 08:42 Nasonex) paroxetine (From Paxil) Allergy Unknown Verified 02/24/24 08:42 Sulfa (Sulfonamide Allergy Unknown Verified 02/24/24 08:42 Antibiotics) lisinopril AdvReac Mild Angioedema Verified 02/24/24 08:42 Family History Mother Lung disease Father Lung disease Surgical History History of partial hysterectomy History of lumpectomy Social History household members: spouse Smoking Status: Former smoker alcohol intake: never ROS ROS ED Constitutional Constitutional ED: Denies chills or fever(s) Eyes Eyes: Denies change in vision or diplopia ENT ENT ED: Reports nasal congestion and rhinorrhea; Denies ear pain or sore throat Cardiovascular Cardiovascular: Denies chest pain, orthopnea or palpitations Respiratory/Chest Respiratory/Chest: Reports cough and dyspnea on exertion; Denies orthopnea Gastrointestinal Gastrointestinal: Reports abdominal pain and other Details: Abdominal pain is with coughing or moving, no pains with eating ; Denies diarrhea, nausea or vomiting Genitourinary Genitourinary ED: Denies dysuria or hematuria Musculoskeletal Musculoskeletal: Reports back pain; Denies myalgias or neck pain Integumentary Denies abscess or rash Neurologic Neurologic: Reports other Details: Some trouble walking and mild dizziness when dyspneic on light exertion, no nausea/vomiting ; Denies headache(s), paresthesias or weakness Psychiatric Psychiatric: Denies depression or suicidal thoughts Endocrine Endocrinology: Denies polydipsia or polyuria EXAM Physical Exam Const Vital Signs: 02/24/24 08:34 02/24/24 08:55 02/24/24 09:05 Temperature 97.8 F Temperature Source Oral Pulse Rate 110 H Respiratory Rate 16 Respiratory Effort Respiratory Depth Respiratory Pattern Blood Pressure 135/58 H Blood Pressure Mean 83 Pulse Ox 100 100 95 Oxygen Delivery Method Nasal Cannula Nasal Cannula Nasal Cannula Oxygen Flow Rate (L/min) 6 6 4 02/24/24 09:13 02/24/24 09:15 02/24/24 09:41 Temperature 97.8 F Temperature Source Oral Pulse Rate 88 Respiratory Rate 18 16 Respiratory Effort Normal Respiratory Depth Normal Respiratory Pattern Normal Blood Pressure 149/65 H Blood Pressure Mean 93 Pulse Ox 98 96 Oxygen Delivery Method Nasal Cannula Nasal Cannula Nasal Cannula Oxygen Flow Rate (L/min) 4 4 4 02/24/24 10:00 Temperature 98.0 F Temperature Source Oral Pulse Rate 85 Respiratory Rate 18 Respiratory Effort Respiratory Depth Respiratory Pattern Blood Pressure 149/74 H Blood Pressure Mean 99 Pulse Ox 98 Oxygen Delivery Method Nasal Cannula Oxygen Flow Rate (L/min) 4 Positive well nourished and well developed General Appearance ED: well developed and NAD HEENT Reports moist mucous membranes normocephalic and atraumatic Throat: Negative for posterior oropharynx abnormal Eyes PERRL and EOMs intact bilaterally Neck no lymphadenopathy, supple and no meningeal signs Chest Wall inspection of chest normal and palpation of chest normal Chest Narrative: Rib cage is tender in the right lateral and posterior ribs subscapular, but no crepitance or subcutaneous emphysema or step-off or splinting with deep inspiration Resp normal respiratory effort and clear to auscultation bilaterally Resp Narrative: Distant breath sounds but no wheezes or respiratory distress. Speaking in full sentences. Cardio no murmurs Rate: regular rate Rhythm: regular rhythm GI non-tender and non-distended Auscultation: normoactive bowel sounds Palpation: soft Back/Spine no CVA tenderness General Back: other FROM Extremity normal to inspection General Extremety ED: Negative for edema, pulses abnormal or tenderness General Extremity: Negative for edema or pulses abnormal Neuro oriented x3, CN's II-XII intact bilaterally and no sensory deficits noted Sensorium / Orientation: alert Motor Exam: strength 5/5 throughout Psych mental status grossly normal Skin no rashes or lesions noted and no wounds Lesions: no lesions Rashes: no rashes MDM MDM MDM Narrative Medical decision making narrative: As I discussed with this patient, her main concern is pain and the cough, and if she has a viral etiology of her illness, the prescribed medications will not fix those problems. They are meant to help her COPD which is sounds like it is, and to keep her from getting pneumonia as a bacterial superinfection on top of her likely viral illness. She states she did not know that. She accepts an offer for pain medication. She is on a 4 L nasal cannula here, less than she has had at home, and 98-100% with clear lungs. I repeated her chest x-ray 2 views of my interpretation show no acute pneumonia or changes compared with her prior 3 days ago, however radiology is reading as suggestive of focal patchy infiltrate right lower lobe. I do not think she needs any other testing since she is doing well otherwise, and clinically my suspicion for the cause of her pain is musculoskeletal/chest wall. I think changing the antibiotic to take failure of outpatient treatment out of the equation is reasonable, I am going to change her doxycycline to azithromycin, and after a tramadol here she says she is feeling much better and in a lot less pain. She tolerating it well. I am going to give her a prescription for a short supply and have her follow-up with her doctor with those treatments. She and are comfortable with that plan. Radiography Diagnostic Testing: Clinical Impression(s) from Imaging Studies Chest X-Ray 02/24/24 09:35 IMPRESSION: Hyperinflation and COPD. Findings suggestive of a focal patchy infiltrate in the right lower lobe superimposed on basilar scarring. Electronically Signed: Darrius Lujan MD at 9:57 EST , Rhythm Strip Rhythm Strip: Sinus Rhythm Rate: 85 Ectopy: PAC(s) EKG Initial EKG: Attestation: I personally reviewed and interpreted this EKG as follows: Interpretation: Sinus Rhythm and No Acute Injury Pattern Comments: PAC otherwise normal EKG. Normal axis and intervals. Discharge Plan Triage Chief Complaint: Shortness of Breath ED Provider: Brian Ortega Dx/Rx/DC Orders Clinical Impression: Acute chest wall pain, COPD exacerbation Instructions: ED Chest Wall Strain Prescriptions: New azithromycin 250 mg tablet See Rx Instructions .ROUTE .COMPLEX Qty: 6 0RF Rx Instructions: For 250 mg dose pack: take 500 mg today (day 1), then 250 mg for 4 days (days 2-5) tramadol 50 mg tablet 50 mg PO Q8H PRN (Reason: Pain) 3 Days Qty: 9 0RF Continued potassium chloride [Klor-Con M20] 20 mEq tablet,ER particles/crystals PO Patient Comments: TAKE 2 TABLETS IN THE MORNING AND 1 TABLET AT NIGHT albuterol sulfate 2.5 MG/3 ML solution for nebulization 2.5 mg INHALATION Q6H PRN PRN (Reason: Sob &/Or Wheezing) simvastatin 20 MG tablet 20 mg PO QHS metoprolol tartrate 50 MG tablet 50 mg PO BID hydrochlorothiazide 25 MG tablet 25 mg PO DAILY egilkfvmodioo-PL-xggbrokcegnqv 1 EACH capsule 1 each PO DAILY PRN (Reason: COLD SYMPTOMS) calcium carbonate-vitamin D3 1 EACH tablet,chewable 1 each PO BID qxyhttet-krb-mrdv-FA-vit K-lut 1 EACH tablet 1 each PO DAILY aspirin 81 MG tablet,chewable 81 mg PO DAILY@0800 acetaminophen 325 MG tablet 650 mg PO Q6H PRN PRN (Reason: Mild Pain (scale 0-3)/T>100.7) 0RF montelukast 10 MG tablet 10 mg PO DAILY furosemide 20 MG tablet 20 mg PO DAILY PRN (Reason: EDEMA) albuterol sulfate 18 GM HFA aerosol inhaler 90 mcg IH Q4H PRN PRN (Reason: Sob &/Or Wheezing) Patient Comments: INHALE 2 PUFFS INSTRUCTED EVERY 4 HOURS NEEDED FOR WHEEZING/SHORTNESS OF BREATH. cetirizine 10 MG tablet,disintegrating 10 mg PO DAILY pdcikiulnoq-luxisfxrw-vbfvvjvj 1 EACH blister with device 1 each IH DAILY prednisone 20 mg tablet 40 mg PO DAILY 10 Days Qty: 20 0RF losartan 25 mg tablet 25 mg PO DAILY Qty: 30 0RF prednisone 20 mg tablet 60 mg PO DAILY Qty: 15 0RF Discontinued doxycycline monohydrate 100 mg capsule 100 mg PO BID Qty: 10 0RF Primary Care Provider: Phyllis Smith Referrals: Phyllis Smith MD [Primary Care Provider] - As soon as possible Print Language: Serbian Disposition Disposition: Home, Self Care
--- NOTE | 2024-02-24 09:35 | RAD_ITS ---
STUDY: X-RAY CHEST REASON FOR EXAM: Female, 73 years old. Cough copd . Right-sided chest pain. TECHNIQUE: PA and lateral views of the chest. COMPARISON: Comparison is made with prior study dated February 21, 2024. FINDINGS: EKG electrodes are seen. There is hyperinflation of the lungs consistent with chronic obstructive lung disease (COPD). Findings suggestive of a patchy infiltrate in the right lower lobe superimposed on chronic bibasilar scarring. There is no demonstrated pleural abnormality. Normal size heart. Normal mediastinum and paige. Normal visualized pulmonary arteries. There is atherosclerotic calcification of the aortic arch with tortuosity. There is demineralization of the osseous structures. Normal visualized ribs, clavicles, and shoulders. There is no demonstrated abnormality of the visualized soft tissue structures of the upper abdomen. RAD/Chest PA and Lateral IMPRESSION: Hyperinflation and COPD. Findings suggestive of a focal patchy infiltrate in the right lower lobe superimposed on basilar scarring. Electronically Signed: Darrius Lujan MD at 9:57 EST ,
[2024-02-24] MEDS: traMADol 50 MG Tablet PO (09:46)
--- NOTE | 2024-02-24 10:38 | EKG12_ITS ---
Test Reason : SOB Blood Pressure : */* mmHG Vent. Rate : 88 BPM Atrial Rate : 88 BPM P-R Int : 160 ms QRS Dur : 82 ms QT Int : 380 ms P-R-T Axes : 63 79 51 degrees QTcB Int : 459 ms Sinus rhythm with Premature atrial complexes Otherwise normal ECG Confirmed by Julian Cruz ([id number]), editor producer LILLIAN PARDO ([id number]) on 02/27/2024 10:22:31 AM Referred By: NADEGE Confirmed By: Julian Cruz
== END 2024-02-24 11:07 | disposition home or self-care (01) ==
PROVIDERS: Emergency Provider Emergency Medicine; PCP Internal Medicine; Visit Provider Emergency Medicine
DX: R07.89 Other chest pain (principal); J44.1 Chronic obstructive pulmonary disease with (acute) exacerbation; I42.9 Cardiomyopathy, unspecified; E78.5 Hyperlipidemia, unspecified; Z87.891 Personal history of nicotine dependence; I10 Essential (primary) hypertension; Z99.81 Dependence on supplemental oxygen; Z90.710 Acquired absence of both cervix and uterus
CPT/HCPCS: 71046; 93005; 99282

== ENCOUNTER 2024-03-19 13:40 | Inpatient (IN) | payer MEDICARE, OTHER, SELFPAY ==
[2024-03-19] VITALS (10 sets, daily range): BP systolic 98–141; BP diastolic 50–73; PULSE 68–105; RESP 16–20; TEMP 36.3–36.9; O2SAT 91–98; BMI 25.6; BMI 24.4
--- NOTE | 2024-03-19 13:50 | CT_ITS ---
EXAM: CT scan of the head without intravenous contrast. EXAMINATION: CT Head Without C.ontrast CLINICAL HISTORY: Dizziness. Confusion. Recent fall. COMPARISON: None. TECHNIQUE: Helical imaging of CT head was performed without IV contrast. One or more of the following dose reduction techniques were used: automated exposure control, adjustment of the mA and/or kV according to patient size, use of iterative reconstruction technique. FINDINGS: BRAIN PARENCHYMA: No evidence for acute hemorrhage or large territory infarct. EXTRA-AXIAL SPACES: No acute extra-axial fluid collection identified. Basal cisterns are patent. Cerebral atrophy. Mild degree of decreased attenuation in the periventricular distribution suggestive of small-vessel disease. MIDLINE SHIFT: None. VENTRICLES: No evidence of hydrocephalus. SCALP SOFT TISSUES: No significant abnormality. CALVARIUM: No acute process. VISUALIZED PARANASAL SINUSES: No air-fluid levels. MASTOID AIR CELLS: Grossly clear. CT/Brain/Head without Contrast IMPRESSION: Cerebral atrophy. Reading Location: [place] [id number]
--- NOTE | 2024-03-19 13:52 | EKG12_ITS ---
Test Reason : SOB/DIZZY Blood Pressure : */* mmHG Vent. Rate : 83 BPM Atrial Rate : 83 BPM P-R Int : 134 ms QRS Dur : 72 ms QT Int : 378 ms P-R-T Axes : 60 84 51 degrees QTcB Int : 444 ms Sinus rhythm with marked sinus arrhythmia Otherwise normal ECG Confirmed by KAMILA BOLES, RAJINDER ([id number]), production editor LOGAN HAIRSTON ([id number]) on 03/20/2024 8:50:15 AM Referred By: Camelia Otto Confirmed By: RAJINDER TREVIÑO MD
--- NOTE | 2024-03-19 14:00 | ED.RN ---
When checking patient's orientation, patient stated the year was 1924. This RN clarified with patient on the year and she continued to state it is 1924. Dr. Eduardo notified.
--- NOTE | 2024-03-19 14:06 | CT_ITS ---
PROCEDURE: SPINE CERVICAL WITHOUT CONTRAS REASON FOR EXAM: Dizziness. Confusion. TECHNIQUE: Cervical spine CT without contrast. COMPARISON: None. FINDINGS: Alignment: Minimal anterior listhesis of C2 on C3. Vertebrae: No acute fracture Soft Tissues: Unremarkable C1-2: Normal alignment. Dens appears intact. C2-3: Unremarkable C3-4: Minimal anterior listhesis of C3 on C4 most likely secondary to facet joint osteoarthritis. Moderate degree of disc space narrowing. Uncovertebral arthrosis. Bilateral neural foraminal stenosis worse on the right side. C4-5: Moderate degree of disc space narrowing. Facet joint osteoarthritis. No significant stenosis is seen. C5-6: Moderate degree of disc space narrowing. Spondylosis. Uncovertebral arthrosis. Bilateral neural foraminal stenosis more prominent on the right side. C6-7: Moderate degree of disc space 9. Spondylosis. No significant narrowing is seen. C7-T1: Unremarkable CT/Spine Cervical without Contras IMPRESSION: NO ACUTE CERVICAL FRACTURE. Degenerative changes at multiple levels as described. One or more dose reduction techniques were used (e.g., Automated exposure contr ol, adjustment of the mA and/or kV according to patient size, use of iterative reconstruction technique). Reading Location: [place] [id number]
[2024-03-19 14:16] LABS: Absolute Lymphocyte Count 0.92 X10^3/uL (0.83-4.51); Absolute Neutrophil Count 14.3 X10^3/uL (2.0-7.7); Basophil# 0.07 X10^3/uL; Basophil% 0.4 % (0-1); Eosinophil# 0.17 X10^3/uL; Hemoglobin 11.5 g/dL (12.0-15.0); Lymphocyte # 0.92 X10^3/ul (0.83-4.51); Lymphocyte % 5.4 % (19-41); Mean Corp Hgb Conc 34.8 g/dL (32-36); Mean Corpuscular Hgb 30.3 pg (27.0-32.0); Mean Corpuscular Volume 86.8 fL (81-99); Mean Platelet Vol. 9.9 fl (6.2-12.0); Monocyte# 1.25 X10^3/uL; Monocyte% 7.4 % (0-10); NRBC Flagged by Analyzer 0 % (0-5); Neutrophil # 14.27 X10^3/uL (2.7-7.7); Neutrophil % 84.6 % (47-70); Platelet Count 282 K/mm3 (150-450); RBC Distribution Width CV 13.3 % (11.6-14.6); RBC Distribution Width SD 41.8 fl (35.1-43.9); White Blood Count 16.9 K/mm3 (4.4-11.0)
--- NOTE | 2024-03-19 14:25 | RAD_ITS ---
EXAM: CHEST PA AND LATERAL CLINICAL HISTORY: Chest pain. COMPARISON: Comparison is made with prior study dated July 19, 2022. TECHNIQUE: AP and lateral views were obtained. FINDINGS: There is evidence of hyperinflation and emphysematous changes more pronounced in the upper lobes. Stable mild increased linear markings at the lung bases suggestive of scarring. The heart is not enlarged. Calcification of the aortic arch. Demineralization of the thoracic vertebrae. RAD/Chest PA and Lateral IMPRESSION: Hyperinflation and COPD. Stable scarring at the lung bases. Reading Location: [place] [address]
--- NOTE | 2024-03-19 14:37 | EX.ED.DYSGE1 ---
HPI History of Present Illness Chief Complaint: Confusion Narrative Narrative: Patient is a 73-year-old female past medical history of COPD chronically on 4 L nasal cannula, hyperlipidemia, hypertension who presents to the emergency department chief complaint of difficulty with walking as well as shortness of breath. According to the patient's significant other at bedside since of this past week. Patient states that anytime she tries to get up and walk she cannot and she will fall. They note that she has been having low oxygen saturations at home and states that her oxygen tank will periodically malfunction. Patient denies any blood thinning medications. Patient states that she overall does not feel well. [facility] Medical History Cardiomyopathy Obesity Essential hypertension Bradycardia with 41-50 beats per minute COPD (chronic obstructive pulmonary disease) HLD (hyperlipidemia) Home Medications ?Medication ?Instructions ?Recorded ?Last Taken ?Type albuterol sulfate 2.5 mg/3 mL 2.5 mg inhalation Q6H PRN PRN Sob 12/16/16 03/18/24 History (0.083 %) solution for nebulization &/Or Wheezing calcium 500 mg (as carbonate)-vit 1 each PO BID SUPPLEMENT 12/16/16 03/19/24 History D3 10 mcg (400 unit) chewable tablet hydrochlorothiazide 25 mg tablet 25 mg PO DAILY DIURETIC/WATER PILL 12/16/16 03/19/24 History metoprolol tartrate 50 mg tablet 50 mg PO BID BLOOD PRESSURE 12/16/16 03/19/24 History zfjlxwvd-zziw-ygfb 8 mg-folic 400 1 each PO DAILY SUPPLEMENT 12/16/16 03/19/24 History mcg-K 50 mcg-lutein 300 mcg tablet phenylephrine 5 1 each PO DAILY PRN COLD SYMPTOMS 12/16/16 03/19/24 History mg-dextromethorphan 10 mg-acetaminophen 325 mg capsule simvastatin 20 mg tablet 20 mg PO QHS CHOLESTEROL 12/16/16 03/18/24 History albuterol sulfate 90 mcg/actuation 90 mcg IH Q4H PRN PRN Sob &/Or 02/16/19 03/19/24 History aerosol inhaler Wheezing cetirizine 10 mg disintegrating 10 mg PO DAILY 02/16/19 03/19/24 History tablet fluticasone fur. 100 mcg-umeclid 1 each IH DAILY 02/16/19 03/19/24 History 62.5 mcg-vilant 25 mcg inhalat.powder furosemide 20 mg tablet 20 mg PO DAILY PRN EDEMA 02/16/19 03/16/24 History montelukast 10 mg tablet 10 mg PO DAILY 02/16/19 03/19/24 History losartan 25 mg tablet 25 mg PO DAILY #30 tabs 08/25/22 03/19/24 Rx tramadol 50 mg tablet 50 mg PO Q8H PRN Pain 3 days #9 02/24/24 03/19/24 Rx tabs acetaminophen 325 mg tablet 650 mg PO Q6H PRN Mild Pain (scale 03/19/24 03/19/24 History 0-3)/T>100.7 alendronate 70 mg tablet 70 mg PO TU 03/19/24 03/13/24 History potassium chloride 10 mEq 10 meq PO BID 03/19/24 03/19/24 History tablet,extended release(part/cryst) (Klor-Con M) Allergy/AdvReac Type Severity Reaction Status Date / Time atorvastatin (From Lipitor) Allergy Unknown Verified 03/19/24 13:45 lorazepam (From Ativan) Allergy Unknown Verified 03/19/24 13:45 mometasone furoate (From Allergy Unknown Verified 03/19/24 13:45 Nasonex) paroxetine (From Paxil) Allergy Unknown Verified 03/19/24 13:45 Sulfa (Sulfonamide Allergy Unknown Verified 03/19/24 13:45 Antibiotics) lisinopril AdvReac Mild Angioedema Verified 03/19/24 13:45 Family History Mother Lung disease Father Lung disease Surgical History History of partial hysterectomy History of lumpectomy Social History household members: spouse Smoking Status: Former smoker alcohol intake: never ROS ROS ED ROS Narrative Constitutional: Planes of headache denies any lightheaded, dizziness, fevers, chills Eyes: Denies change in vision double vision blurry vision Cardiovascular: Denies chest pain or palpitations Respiratory: Complains of cough and shortness of breath Abdomen: Denies abdominal pain nausea vomiting diarrhea : Denies any urinary symptoms Neurological: Complains of multiple falls as noted above denies any numbness or tingling Musculoskeletal: Denies back pain Skin: Denies any rashes or lesions EXAM Physical Exam Narrative Exam Narrative: General: Patient is lying in bed rest comfortably did not appear to be acute distress Head: Atraumatic, normocephalic Eyes: PERRL bilaterally, EOMI bilaterally, no conjunctival injection noted Neck: Soft, supple, trachea midline Cardiovascular: Regular rate and rhythm no murmurs gallops rubs noted Respiratory: Clear to auscultation bilaterally Abdomen: Soft, nondistended, nontender to palpation Musculoskeletal: All bony prominences palpated and joints taken through full range of motion no pain elicited, no pain with labral bilaterally Extremities: +4/5 strength noted in the bilateral upper and lower extremities, radial pulses +2/4 in the bilateral extremities, no pedal edema no exam Neurological: Patient following commands was confused which is abnormal for her according to family at bedside Skin: Warm, dry, intact Const Vital Signs: 03/19/24 13:43 03/19/24 14:42 03/19/24 15:00 Temperature 98.4 F Temperature Source Oral Pulse Rate 82 72 86 Respiratory Rate 20 H 18 Blood Pressure 114/50 L 98/53 L 112/61 Blood Pressure Mean 71 68 78 Pulse Ox 96 96 98 Oxygen Delivery Method Room Air Room Air Nasal Cannula Oxygen Flow Rate (L/min) 3 03/19/24 16:00 03/19/24 16:08 Temperature 98.4 F Temperature Source Pulse Rate 86 Respiratory Rate 18 18 Blood Pressure 118/65 118/65 Blood Pressure Mean 82 82 Pulse Ox 95 95 Oxygen Delivery Method Nasal Cannula Oxygen Flow Rate (L/min) 3 MDM MDM MDM Narrative Medical decision making narrative: Patient is a 73-year-old female who presented to the emergency department with a chief complaint of of multiple falls and not feeling well. On the differential diagnose includes but not limited to ischemic stroke, hemorrhagic stroke, electrolyte abnormality, ACS, pneumonia, COVID flu RSV. Once workup is obtained reviewed she will be reevaluated. Patient given IV fluids Patient CBC was significant for leukocytosis of 16,000, hemoglobin is 11.5, plate count was noted to be normal at 282. Patient sodium was 125 indicating hyponatremia she has hyponatremia in the past, potassium normal at 5, creatinine was elevated to 4.01 this is significantly elevated from her baseline which appears to be around 1.13 to 1.3. Patient AST and ALT are 2019 respectively troponin was elevated 272 EKG reviewed showed sinus rhythm with a rate of [address] changes noted. Delta troponin will be obtained. Patient's urinalysis pending at this point in time. Lipase normal at 13. Patient's chest x-ray reviewed by myself and by radiology showed hyperinflation COPD. Patient CT brain without contrast showed cerebral atrophy and CT cervical spine without contrast reviewed showed no acute cervical fracture there are degenerative changes at multiple levels noted. Patient tested negative for COVID flu and RSV. At this point in time will discuss case with hospitalist for admission as she is unable to ambulate, her NAVID, elevated troponin which is likely secondary to her acute kidney injury. Did discussed case with hospitalist Dr. Otto who accept patient for admission. Patient was notified is agreeable this plan. At 1627 patient's urinalysis reviewed and showed 250 occult blood, negative nitrates, 500 leukocytes esterase with 25-50 white cells and 3+ bacteria she will be given a gram Rocephin at this point time. Patient's urine will be sent for culture. Lab Data Labs: Laboratory Results - last 24 hr 03/19/24 03/19/24 14:06 15:16 WBC 16.9 H RBC 3.80 L Hgb 11.5 L Hct 33.0 L MCV 86.8 MCH 30.3 MCHC 34.8 RDW Std Deviation 41.8 RDW Coeff of Caroline 13.3 Plt Count 282 MPV 9.9 Immature Gran % (Auto) 1.200 H Neut % (Auto) 84.6 H Lymph % (Auto) 5.4 L Ritchie % (Auto) 7.4 Eos % (Auto) 1.0 Baso % (Auto) 0.4 Absolute Neuts (auto) 14.3 H Absolute Lymphs (auto) 0.92 Nucleated RBC % 0 Sodium 125 L Potassium 5.0 Chloride 89 L Carbon Dioxide 25.0 Anion Gap 11 BUN 53 H Creatinine 4.01 H Est GFR (MDRD) Af Amer 14 L Est GFR (MDRD) Non-Af 12 L BUN/Creatinine Ratio 13.2 Glucose 95 Calcium 8.7 Total Bilirubin 0.40 AST 20 ALT 19 Alkaline Phosphatase 118 H Troponin I High Sens 272 H* Total Protein 7.2 Albumin 2.4 L Globulin 4.8 H Albumin/Globulin Ratio 0.5 L Lipase 13 Urine Color Yellow Urine Clarity Cloudy Urine pH 6.0 Ur Specific [place] 1.010 Urine Protein 100 H Urine Glucose (UA) Normal Urine Ketones Negative Urine Occult Blood 250 H Urine Nitrite Negative Urine Bilirubin Negative Urine Urobilinogen Normal Ur Leukocyte Esterase 500 H Urine RBC 25-50 SEEN Urine WBC 25-50 SEEN Ur Squamous Epith Cells 0 SEEN Urine Bacteria 3+ Urine Mucus 0 SEEN Radiography Diagnostic Testing: Clinical Impression(s) from Imaging Studies Brain CT 03/19/24 13:50 IMPRESSION: Cerebral atrophy. Reading Location: [facility]- Cervical Spine CT 03/19/24 14:06 IMPRESSION: NO ACUTE CERVICAL FRACTURE. Degenerative changes at multiple levels as described. One or more dose reduction techniques were used (e.g., Automated exposure control, adjustment of the mA and/or kV according to patient size, use of iterative reconstruction technique). Reading Location: [facility]-1 Chest X-Ray 03/19/24 14:25 IMPRESSION: Hyperinflation and COPD. Stable scarring at the lung bases. Reading Location: [facility]- Discharge Plan Triage Chief Complaint: Confusion Other Complaint: Dizziness ED Provider: Marco Eduardo Dx/Rx/DC Orders Clinical Impression: Ataxia, Acute UTI, Myocardial infarction type 2 Primary Care Provider: Phyllis Smith Disposition Disposition: Acute Care Hospital [facility]
[2024-03-19 14:42] LABS: ALB/GLOB Ratio 0.5 RATIO (0.9-2.4); AST(SGOT) 20 U/L (15-37); Alanine Aminotransfer ALT/SGPT 19 U/L (13-56); Albumin, Serum 2.4 g/dL (3.2-5.0); Alkaline Phosphatase 118 U/L (45-117); Anion Gap 11 (5-15); BUN 53 mg/dL (7-18); BUN/Creat Ratio 13.2 RATIO (10-20); Calcium,Total 8.7 mg/dL (8.5-10.1); Chloride 89 mmol/L (98-107); Creatinine, Serum 4.01 mg/dL (0.55-1.02); EST Glomerular Filtration Rate 12 mL/min (>60); Est Glom Filt Rate - Afr Amer 14 mL/min (>60); Globulin 4.8 g/dL (2.2-4.2); Glucose 95 mg/dL (74-106); Lipase 13 U/L (13-75); Protein, Total 7.2 g/dL (6.4-8.2); Sodium Level 125 mmol/L (136-145); Troponin-I HS 272 pg/mL (3.0-54.0)
--- NOTE | 2024-03-19 14:42 | ED.RN ---
Critical Troponin 272. Dr. Eduardo notified
[2024-03-19] MEDS: 0.9% Normal Saline (1000mL) 1,000 ML 999 ML IV ×2 (14:51→16:35)
[2024-03-19 15:21] LABS: Mucous, Urine 0 SEEN /hpf (<or=2+); Squamous Epithelial Cells - UA 0 SEEN /hpf (5-10)
[2024-03-19 15:33] LABS: Color, Urine Yellow (Yellow); Glucose, Dipstick Normal (Normal); Ketone-Dipstick Negative (Negative); Leukocyte Esterase-Dipstick 500 /ul (Negative); Nitrite-Dipstick Negative (Negative); Occult Blood-Urine 250 /ul (Negative); Protein-Dipstick 100 mg/dl (Negative); Urine Bilirubin Dipstick Negative (Negative); Urine Clarity Cloudy (Clear); Urine Urobilinogen Normal (Normal)
[2024-03-19 16:21] LABS: Partial Thromboplast Time 28.4 Seconds (24.1-36.2)
[2024-03-19 16:25] LABS: Bacteria 3+ /hpf (None Seen); Red Blood Cells-Urine 25-50 SEEN /hpf (0-5); White Blood Cells 25-50 SEEN /hpf (0-5)
[2024-03-19 16:33] LABS: Troponin-I HS 244 pg/mL (3.0-54.0)
[2024-03-19] MEDS: Ceftriaxone 1 GM/50 ML BAG IV (16:35)
[2024-03-19 16:42] LABS: International Normalized Ratio 1.3
[2024-03-19 17:04] LABS: Lactic Acid 0.9 mmol/L (0.4-1.9)
--- NOTE | 2024-03-19 17:04 | PCM.HP.STD ---
HPI - General General Date of Admission: 03/19/24 Date of Service: 03/19/24 Chief Complaint: falls, O2 malfunctioning HPI Narrative TABATHA AUGUST, is a 73-year-old female history of COPD chronically on 3 to 4 L nasal cannula, hypertension who presented [facility] ED 03/19/2024 with difficulty walking with multiple falls as well as shortness of breath since of last week. Is noted to have some low oxygen saturations at home but her tank sometimes malfunctions. In the ED patient afebrile with heart rate of 82, blood pressure 114/50 with respiratory rate of 20 and patient 98% on 3 L. She is found to have increase white blood cell count of 16.9, acute on chronic kidney failure with a BUN of 53 and creatinine of 4.01 with a baseline of 1.3, additionally sodium 125 and while she does have a history of hyponatremia the slightly lower than usual. Troponin found to be 272. Additionally he was suggestive of UTI so patient given Rocephin.. Patient given IV fluids and hospitalist contacted for admission. Patient evaluated at bedside, no family present so history obtained from patient. She reports that she was having some weakness but feels like it is a little bit better, has had multiple falls but was very vague about this, denies any focal complaints. Does report shortness of breath at home but said that her oxygen intermittently does not seem to be working and when it is working she is not short of breath. Denies any cough, does get headaches sometimes. Patient denies any recent changes in mental status or confusion (I do no family present to corroborate this.) patient denies any other symptoms [facility] Medical History Cardiomyopathy Obesity Essential hypertension Bradycardia with 41-50 beats per minute COPD (chronic obstructive pulmonary disease) HLD (hyperlipidemia) Home Medications ?Medication ?Instructions ?Recorded ?Last Taken ?Type albuterol sulfate 2.5 mg/3 mL 2.5 mg inhalation Q6H PRN PRN Sob 12/16/16 03/18/24 History (0.083 %) solution for nebulization &/Or Wheezing calcium 500 mg (as carbonate)-vit 1 each PO BID SUPPLEMENT 12/16/16 03/19/24 History D3 10 mcg (400 unit) chewable tablet hydrochlorothiazide 25 mg tablet 25 mg PO DAILY DIURETIC/WATER PILL 12/16/16 03/19/24 History metoprolol tartrate 50 mg tablet 50 mg PO BID BLOOD PRESSURE 12/16/16 03/19/24 History dzetlhwv-cweo-muez 8 mg-folic 400 1 each PO DAILY SUPPLEMENT 12/16/16 03/19/24 History mcg-K 50 mcg-lutein 300 mcg tablet phenylephrine 5 1 each PO DAILY PRN COLD SYMPTOMS 12/16/16 03/19/24 History mg-dextromethorphan 10 mg-acetaminophen 325 mg capsule simvastatin 20 mg tablet 20 mg PO QHS CHOLESTEROL 12/16/16 03/18/24 History albuterol sulfate 90 mcg/actuation 90 mcg IH Q4H PRN PRN Sob &/Or 02/16/19 03/19/24 History aerosol inhaler Wheezing cetirizine 10 mg disintegrating 10 mg PO DAILY 02/16/19 03/19/24 History tablet fluticasone fur. 100 mcg-umeclid 1 each IH DAILY 02/16/19 03/19/24 History 62.5 mcg-vilant 25 mcg inhalat.powder furosemide 20 mg tablet 20 mg PO DAILY PRN EDEMA 02/16/19 03/16/24 History montelukast 10 mg tablet 10 mg PO DAILY 02/16/19 03/19/24 History losartan 25 mg tablet 25 mg PO DAILY #30 tabs 08/25/22 03/19/24 Rx tramadol 50 mg tablet 50 mg PO Q8H PRN Pain 3 days #9 02/24/24 03/19/24 Rx tabs acetaminophen 325 mg tablet 650 mg PO Q6H PRN Mild Pain (scale 03/19/24 03/19/24 History 0-3)/T>100.7 alendronate 70 mg tablet 70 mg PO TU 03/19/24 03/13/24 History potassium chloride 10 mEq 10 meq PO BID 03/19/24 03/19/24 History tablet,extended release(part/cryst) (Klor-Con M) Allergy/AdvReac Type Severity Reaction Status Date / Time atorvastatin (From Lipitor) Allergy Unknown Verified 03/19/24 13:45 lorazepam (From Ativan) Allergy Unknown Verified 03/19/24 13:45 mometasone furoate (From Allergy Unknown Verified 03/19/24 13:45 Nasonex) paroxetine (From Paxil) Allergy Unknown Verified 03/19/24 13:45 Sulfa (Sulfonamide Allergy Unknown Verified 03/19/24 13:45 Antibiotics) lisinopril AdvReac Mild Angioedema Verified 03/19/24 13:45 Family History Mother Lung disease Father Lung disease Surgical History History of partial hysterectomy History of lumpectomy Social History household members: spouse Smoking Status: Former smoker alcohol intake: never ROS ROS Narrative General: Denies fever/chills HENT: Intermittently some headaches, denies stuffy nose, denies sore throat EYES: Denies changes in vision Resp: Denies cough, feels short of breath when her oxygen is not working Cardiac: Denies chest pain GI: Denies abdominal pain, denies changes in bowel, denies nausea/vomiting : Denies changes in urination Extremity: Denies swelling MSK: Denies weakness but does report some intermittent falls Neuro: Denies any numbness/tingling Heme: Denies any bleeding or bruising Skin: Denies rashes Psychiatric: No complaints voiced Vital Signs Vital Signs Vital Signs: 03/19/24 13:43 03/19/24 14:42 03/19/24 15:00 Temperature 98.4 F Temperature Source Oral Pulse Rate 82 72 86 Respiratory Rate 20 H 18 Blood Pressure 114/50 L 98/53 L 112/61 Blood Pressure Mean 71 68 78 Pulse Ox 96 96 98 Oxygen Delivery Method Room Air Room Air Nasal Cannula Oxygen Flow Rate (L/min) 3 03/19/24 16:00 03/19/24 16:08 Temperature 98.4 F Temperature Source Pulse Rate 86 Respiratory Rate 18 18 Blood Pressure 118/65 118/65 Blood Pressure Mean 82 82 Pulse Ox 95 95 Oxygen Delivery Method Nasal Cannula Oxygen Flow Rate (L/min) 3 Weight Weight: 67.7 kg Body Mass Index (BMI) 25.6 Physical Exam Narrative General: Alert, oriented, no apparent distress HEENT: Atraumatic, normocephalic Eyes: Anicteric, normal conjunctiva, extraocular movements grossly intact Neck: Supple Respiratory: Scattered wheezes with normal respiratory effort Cardiovascular: Regular rate GI: Soft, nontender, nondistended Extremities: No edema Musculoskeletal: Moving all extremities Neuro: No overt focal neurological deficits Skin: No rashes appreciated Psych: Cooperative but at times tangential Results Lab / Micro Data 03/19/24 14:06 03/19/24 14:06 Labs: Laboratory Results - last 24 hr 03/19/24 14:06: WBC 16.9 H, RBC 3.80 L, Hgb 11.5 L, Hct 33.0 L, MCV 86.8, MCH 30.3, MCHC 34.8, RDW Std Deviation 41.8, RDW Coeff of Caroline 13.3, Plt Count 282, MPV 9.9, Immature Gran % (Auto) 1.200 H, Neut % (Auto) 84.6 H, Lymph % (Auto) 5.4 L, [place] % (Auto) 7.4, Eos % (Auto) 1.0, Baso % (Auto) 0.4, Absolute Neuts (auto) 14.3 H, Absolute Lymphs (auto) 0.92, Nucleated RBC % 0, Sodium 125 L, Potassium 5.0, Chloride 89 L, Carbon Dioxide 25.0, Anion Gap 11, BUN 53 H, Creatinine 4.01 H, Est GFR (MDRD) Af Amer 14 L, Est GFR (MDRD) Non-Af 12 L, BUN/Creatinine Ratio 13.2, Glucose 95, Calcium 8.7, Total Bilirubin 0.40, AST 20, ALT 19, Alkaline Phosphatase 118 H, Troponin I High Sens 272 H*, Total Protein 7.2, Albumin 2.4 L, Globulin 4.8 H, Albumin/Globulin Ratio 0.5 L, Lipase 13 03/19/24 15:16: Urine Color Yellow, Urine Clarity Cloudy, Urine pH 6.0, Ur Specific [place] 1.010, Urine Protein 100 H, Urine Glucose (UA) Normal, Urine Ketones Negative, Urine Occult Blood 250 H, Urine Nitrite Negative, Urine Bilirubin Negative, Urine Urobilinogen Normal, Ur Leukocyte Esterase 500 H, Urine RBC 25-50 SEEN, Urine WBC 25-50 SEEN, Ur Squamous Epith Cells 0 SEEN, Urine Bacteria 3+, Urine Mucus 0 SEEN 03/19/24 15:45: PT 16.0 H, INR 1.3, APTT 28.4, Troponin I High Sens 244 H* 03/19/24 16:33: Lactic Acid 0.9 Micro: Microbiology 03/19/24 14:00 Mucosa - Nose SARS-CoV-2, Influenza & RSV (PCR) - Final Imaging Radiology Impression Brain CT 03/19/24 13:50 IMPRESSION: Cerebral atrophy. Reading Location: [facility] 03/19/24 14:06 IMPRESSION: NO ACUTE CERVICAL FRACTURE. Degenerative changes at multiple levels as described. One or more dose reduction techniques were used (e.g., Automated exposure control, adjustment of the mA and/or kV according to patient size, use of iterative reconstruction technique). Reading Location: [facility] Chest X-Ray 03/19/24 14:25 IMPRESSION: Hyperinflation and COPD. Stable scarring at the lung bases. Reading Location: [facility]--1 Assessment & Plan Assessment/Plan (1) Acute UTI: PLAN: Plan # NAVID on CKD stage IIIb -Creatinine 4.01 with a baseline of 1.3 -IV fluids -Will check urine studies and bladder and kidney ultrasound -Patient reports occasionally she does not eat very well but overall denied any significant decrease in p.o. intake -Daily weights, I's and O's -If worsens or not improving or low urine output may need nephrology consult # Abnormal UA -UA suggestive of UTI -Urine culture -Continue Rocephin -Blood cultures also sent # Elevated troponin -Patient initially hypoxic on her home O2 and then this resolved when she was hooked up to our oxygen -Suspect that elevated troponin may be due to her hypoxia and then unable to clear it given her NAVID -No chest pain or other acute complaints # COPD with chronic hypoxic respiratory failure on home O2 -Continue home inhalers -Case management consult in the event patient does need # Chronic hyponatremia -Patient sodium 125, typically stays low this is slightly lower than previous -Patient receiving IV fluids as above -Repeat BMP #Hypertension -BP within normal range, given underlying infection and renal failure we will hold home antihypertensives at this point and add back as able #DVT ppx: Heparin subcu Camelia Otto MD Charges/Coding Visit Charges Inpatient E&M: 32016 Init Hosp L2
--- NOTE | 2024-03-19 18:05 | US_ITS ---
PROCEDURE: KIDNEY AND BLADDER REASON FOR EXAM: Kidney failure. TECHNIQUE: Bilateral renal ultrasound. COMPARISON: None. FINDINGS: Normal renal sizes, parenchymal thicknesses, and echotextures. No hydronephrosis. No cysts or large solid renal masses. RIGHT Kidney Size: 11.4 cm. Cortical Thickness (if discernible): 1.8 (>6mm is normal) LEFT Kidney Size: 10.6 cm. Cortical Thickness (if discernible): 1.6 (>6mm is normal) Small volume debris within the urinary bladder. Incidentally noted gallbladder sludge. US/Kidney and Bladder IMPRESSION: No acute kidney abnormalities. Small volume debris within the urinary bladder which may represent infection or blood products. Correlate with urinalysis. Incidentally noted gallbladder sludge. Reading Location: [id number]
--- NOTE | 2024-03-19 18:09 | CASEMGMT ---
Care Management Face to Face with patient for initial transition planning/care coordination assessment in the ED. This policy writer sales introduced self and role at [facility]. Patient alert and oriented. Patient willing to participate in assessment and is able to answer all questions appropriately. Care providers, pharmacy, and demographics verified. Admitting Diagnosis: Acute UTI Other diagnosis history: COPD, hypertension PCP: Phyllis Smith Specialists: Baron senior commissions analyst Preferred Pharmacy: [facility]. Insurance: Medicare A B (primary). [employer] Medicare (secondary). Prescription Benefit: yes Living Will/HPOA: denies having currently, but states they are in the works with a rural route carrier. LNOK: daughter, Nola, in [place]. Patient's significant other, Ora; patient reports being to Ora years ago, but patient reports Ora due to Ora drinking. 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 Living Arrangements: lives with significant other, Ora, in a 1 story home with a basement. Full flight of stairs to basement which patient states spending time in. Independent with all ADLs at baseline. Transportation: patient drives, but states riding with Ora when necessary DME: O2 5L through [employer], blood pressure cuff, cane, pulse ox, shower chair, glucometer and testing strips. (Patient does report belief that O2 malfunctions at home sometimes). HHC: none SNF/Rehab: none Community Resources: none Behavioral Health History: none Patient goals: Patient wishes to discharge home, denies need for home health care at this time. Patient states she has no further needs or concerns at this time. Disposition Plan: admission to acute; RN CM/SW to follow for discharge planning needs that may arise. Lauren Elliott, TRANSPORTATION CLERK, PHARMACOLOGY PROFESSOR
[2024-03-19 19:10] LABS: Urea Nitrogen, Urine 308 mg/dL (NO RANGE EST.); Urine Chloride 29 mmol/L (Not Establ.); Urine Sodium 24 mmol/L (Not Establ.)
[2024-03-19] MEDS: Budesonide Respules 0.5 MG/2 ML AMPUL.NEB. INHALATION (21:06)
[2024-03-19] MEDS: Ipratropium/Albuterol Sulfate 3 ML AMPUL.NEB INHALATION (21:06)
[2024-03-19 21:31] LABS: Anion Gap 9 (5-15); BUN 52 mg/dL (7-18); Calcium,Total 8.3 mg/dL (8.5-10.1); Chloride 94 mmol/L (98-107); Creatinine, Serum 3.72 mg/dL (0.55-1.02); EST Glomerular Filtration Rate 13 mL/min (>60); Est Glom Filt Rate - Afr Amer 15 mL/min (>60); Estimated Creatinine Clearance 11.46 ml/min; Glucose 87 mg/dL (74-106); Potassium 4.5 mmol/L (3.5-5.1); Sodium Level 128 mmol/L (136-145)
[2024-03-19] MEDS: Simvastatin 20 MG Tablet PO (22:13)
[2024-03-19] MEDS: Heparin Injection (Vial) 5,000 UNIT/ML VIAL 5000 UNIT SC (22:15)
[2024-03-20] VITALS (11 sets, daily range): BP systolic 106–138; BP diastolic 58–71; PULSE 91–126; RESP 14–19; TEMP 36.4–37.6; O2SAT 95–99; BMI 25.4
[2024-03-20] MEDS: Heparin Injection (Vial) 5,000 UNIT/ML VIAL 5000 UNIT SC ×3 (05:49→20:21)
[2024-03-20] MEDS: Ipratropium/Albuterol Sulfate 3 ML AMPUL.NEB INHALATION ×3 (06:50→20:51)
[2024-03-20] MEDS: Budesonide Respules 0.5 MG/2 ML AMPUL.NEB. INHALATION ×2 (06:50→20:51)
[2024-03-20 08:01] LABS: Absolute Lymphocyte Count 1.08 X10^3/uL (0.83-4.51); Absolute Neutrophil Count 12.7 X10^3/uL (2.0-7.7); Basophil# 0.06 X10^3/uL; Basophil% 0.4 % (0-1); Eosinophil# 0.01 X10^3/uL; Eosinophils% 0.1 % (0-5); Hematocrit 35.8 % (37-47); Hemoglobin 11.9 g/dL (12.0-15.0); Lymphocyte # 1.08 X10^3/ul (0.83-4.51); Lymphocyte % 7.2 % (19-41); Mean Corp Hgb Conc 33.2 g/dL (32-36); Mean Corpuscular Hgb 29.3 pg (27.0-32.0); Mean Corpuscular Volume 88.2 fL (81-99); Mean Platelet Vol. 9.8 fl (6.2-12.0); Monocyte# 0.95 X10^3/uL; Monocyte% 6.4 % (0-10); NRBC Flagged by Analyzer 0 % (0-5); Neutrophil # 12.73 X10^3/uL (2.7-7.7); Neutrophil % 85.1 % (47-70); Platelet Count 290 K/mm3 (150-450); RBC Distribution Width CV 13.5 % (11.6-14.6); RBC Distribution Width SD 43.8 fl (35.1-43.9); Red Blood Count 4.06 M/mm3 (4.2-5.4)
[2024-03-20] MEDS: Loratadine 10 MG Tablet PO (08:39)
[2024-03-20] MEDS: Acetaminophen 325 MG Tablet 650 MG PO ×2 (08:39→16:22)
[2024-03-20 08:40] LABS: Anion Gap 10 (5-15); BUN 49 mg/dL (7-18); BUN/Creat Ratio 12.8 RATIO (10-20); Calcium,Total 8.9 mg/dL (8.5-10.1); Chloride 94 mmol/L (98-107); Creatinine, Serum 3.83 mg/dL (0.55-1.02); EST Glomerular Filtration Rate 12 mL/min (>60); Est Glom Filt Rate - Afr Amer 15 mL/min (>60); Estimated Creatinine Clearance 12.18 ml/min; Glucose 82 mg/dL (74-106); Potassium 4.8 mmol/L (3.5-5.1); Sodium Level 127 mmol/L (136-145)
--- NOTE | 2024-03-20 09:26 | PCM.PN.HOSP ---
Reason for Visit Reason for Visit: Diagnoses Urinary tract infection, site not specified (03/19/24) Subjective Subjective Patient is a 73-year-old lady who was admitted with confusion dizziness and lack of coordination. Workup did reveal presence of acute kidney injury and cystitis. Admitted to a monitored bed for further management Objective Data Objective Data Vital Signs: Vital Signs Temp Pulse Resp BP Pulse Ox O2 Del Method O2 Flow Rate 99.6 F H 126 H 18 138/71 H 96 Nasal Cannula 3 03/20/24 08:27 03/20/24 08:27 03/20/24 08:27 03/20/24 08:27 03/20/24 08:27 03/20/24 08:33 03/20/24 08:33 Oxygen Flow Rate (L/min) 3 Oxygen Delivery Method Nasal Cannula Weight: 67.6 kg Body Mass Index (BMI) 25.4 Intake & Output: Intake and Output for Last 24 Hours 03/18/24 03/19/24 03/20/24 23:59 23:59 23:59 Intake Total 2170 / 2170 110 / 110 Balance 2170 / 2170 110 / 110 Lab / Micro Data 03/20/24 07:39 03/20/24 07:39 Labs: Laboratory Results - last 24 hr 03/19/24 14:06: WBC 16.9 H, RBC 3.80 L, Hgb 11.5 L, Hct 33.0 L, MCV 86.8, MCH 30.3, MCHC 34.8, RDW Std Deviation 41.8, RDW Coeff of Caroline 13.3, Plt Count 282, MPV 9.9, Immature Gran % (Auto) 1.200 H, Neut % (Auto) 84.6 H, Lymph % (Auto) 5.4 L, [place] % (Auto) 7.4, Eos % (Auto) 1.0, Baso % (Auto) 0.4, Absolute Neuts (auto) 14.3 H, Absolute Lymphs (auto) 0.92, Nucleated RBC % 0, Sodium 125 L, Potassium 5.0, Chloride 89 L, Carbon Dioxide 25.0, Anion Gap 11, BUN 53 H, Creatinine 4.01 H, Est GFR (MDRD) Af Amer 14 L, Est GFR (MDRD) Non-Af 12 L, BUN/Creatinine Ratio 13.2, Glucose 95, Calcium 8.7, Total Bilirubin 0.40, AST 20, ALT 19, Alkaline Phosphatase 118 H, Troponin I High Sens 272 H*, Total Protein 7.2, Albumin 2.4 L, Globulin 4.8 H, Albumin/Globulin Ratio 0.5 L, Lipase 13 03/19/24 15:16: Urine Color Yellow, Urine Clarity Cloudy, Urine pH 6.0, Ur Specific Leon 1.010, Urine Protein 100 H, Urine Glucose (UA) Normal, Urine Ketones Negative, Urine Occult Blood 250 H, Urine Nitrite Negative, Urine Bilirubin Negative, Urine Urobilinogen Normal, Ur Leukocyte Esterase 500 H, Urine RBC 25-50 SEEN, Urine WBC 25-50 SEEN, Ur Squamous Epith Cells 0 SEEN, Urine Bacteria 3+, Urine Mucus 0 SEEN, Ur Random Sodium 24, Urine Creatinine 68.70, Urine Potassium 58.0, Urine Chloride 29, Urine Urea Nitrogen 308 03/19/24 15:45: PT 16.0 H, INR 1.3, APTT 28.4, Troponin I High Sens 244 H* 03/19/24 16:33: Lactic Acid 0.9 03/19/24 21:02: Sodium 128 L, Potassium 4.5, Chloride 94 L, Carbon Dioxide 25.0, Anion Gap 9, BUN 52 H, Creatinine 3.72 H, Estim Creat Clear Calc 11.46, Est GFR (MDRD) Af Amer 15 L, Est GFR (MDRD) Non-Af 13 L, BUN/Creatinine Ratio 14.0, Glucose 87, Calcium 8.3 L 03/20/24 07:39: WBC 15.0 H, RBC 4.06 L, Hgb 11.9 L, Hct 35.8 L, MCV 88.2, MCH 29.3, MCHC 33.2, RDW Std Deviation 43.8, RDW Coeff of Caroline 13.5, Plt Count 290, MPV 9.8, Immature Gran % (Auto) 0.800, Neut % (Auto) 85.1 H, Lymph % (Auto) 7.2 L, [place] % (Auto) 6.4, Eos % (Auto) 0.1, Baso % (Auto) 0.4, Absolute Neuts (auto) 12.7 H, Absolute Lymphs (auto) 1.08, Nucleated RBC % 0, Sodium 127 L, Potassium 4.8, Chloride 94 L, Carbon Dioxide 23.0, Anion Gap 10, BUN 49 H, Creatinine 3.83 H, Estim Creat Clear Calc 12.18, Est GFR (MDRD) Af Amer 15 L, Est GFR (MDRD) Non-Af 12 L, BUN/Creatinine Ratio 12.8, Glucose 82, Calcium 8.9 Micro: Microbiology 03/19/24 19:13 Blood Culture (Wb) - No Site/Description Given Blood Culture - Preliminary 03/19/24 14:00 Mucosa - Nose SARS-CoV-2, Influenza & RSV (PCR) - Final Radiography Diagnostic Testing: Radiology Impression Brain CT 03/19/24 13:50 IMPRESSION: Cerebral atrophy. Reading Location: [place] [id number] 03/19/24 14:06 IMPRESSION: NO ACUTE CERVICAL FRACTURE. Degenerative changes at multiple levels as described. One or more dose reduction techniques were used (e.g., Automated exposure control, adjustment of the mA and/or kV according to patient size, use of iterative reconstruction technique). Reading Location: [place] [address] Chest X-Ray 03/19/24 14:25 IMPRESSION: Hyperinflation and COPD. Stable scarring at the lung bases. Reading Location: [place] [address] Renal Ultrasound 03/19/24 18:05 IMPRESSION: No acute kidney abnormalities. Small volume debris within the urinary bladder which may represent infection or blood products. Correlate with urinalysis. Incidentally noted gallbladder sludge. Reading Location: [facility] Physical Exam Narrative GENERAL: cooperative HEENT: Atraumatic; normocephalic EYES; Anicteric, Normal Conjunctiva NECK; supple, normal thyroid, RESPIRATORY: Diminished to auscultation CARDIOVASCULAR: Regular S1 S2, GI: soft, normoactive bowel sounds, : No Renal angle tenderness; EXTREMITIES: No edema, no clubbing, MUSCULOSKELETAL: no muscle wasting NEURO: Awake; no lateralizing signs. SKIN: No Rash PSYCH; Flat affect Assessment & Plan Assessment/Plan (1) Acute UTI: PLAN: Plan Patient is a 73-year-old lady who was admitted with confusion dizziness and lack of coordination. Workup did reveal presence of acute kidney injury and cystitis. Admitted to a monitored bed for further management 1. Acute metabolic encephalopathy ? Secondary to combination of acute kidney injury as well as acute cystitis 2. Acute cystitis ?Patient started on ceftriaxone urine culture sent 3. Acute kidney injury ? Superimposed on chronic kidney disease stage IIIb. Baseline creatinine 1.83 from 02/21/2024; creatinine on admission 4.01 patient started on IV fluid with subsequent monitoring of electrolytes ordered. Patient also underwent renal ultrasound result reviewed 4. Elevated troponin ? Secondary to demand ischemia patient admitted to monitored bed for subsequent eval 5. Hypertension ? Blood pressure controlled, home medications continued with dose adjustment as needed 6. Chronic hypoxic respiratory failure ? Secondary to COPD patient is on baseline home oxygen 7. Chronic hyponatremia ? Sodium level on admission was 125 up to 127 we will continue monitoring with daily BMPs 8. Dyslipidemia ?Patient is on statin therapy, continued at home dose 9. DVT prophylaxis ? Subcu hep Time spent in the patient's overall evaluation,decision-making process, review of diagnostic data, adjustment of management, discussion with other providers, nursing nursing and ancillary staff involved in patient's care documentation, 52 minutes Charges/Coding Visit Charges Inpatient E&M: [id number] [facility] Hosp L3
[2024-03-20] MEDS: Ceftriaxone 1 GM/50 ML BAG IV (10:44)
[2024-03-20] MEDS: Furosemide 20 MG Tablet PO (17:45)
[2024-03-20] MEDS: Simvastatin 20 MG Tablet PO (20:21)
[2024-03-20] MEDS: Metoprolol Tartrate 50 MG Tablet PO (20:21)
[2024-03-21] VITALS (9 sets, daily range): BP systolic 111–126; BP diastolic 55–67; PULSE 73–110; RESP 16–20; TEMP 36.3–37.4; O2SAT 97–98; BMI 24.6
[2024-03-21] MEDS: Heparin Injection (Vial) 5,000 UNIT/ML VIAL 5000 UNIT SC ×3 (04:40→20:59)
[2024-03-21 04:58] LABS: Absolute Lymphocyte Count 0.98 X10^3/uL (0.83-4.51); Basophil# 0.07 X10^3/uL; Basophil% 0.5 % (0-1); Eosinophil# 0.09 X10^3/uL; Eosinophils% 0.6 % (0-5); Hematocrit 31.2 % (37-47); Hemoglobin 10.7 g/dL (12.0-15.0); Lymphocyte # 0.98 X10^3/ul (0.83-4.51); Lymphocyte % 6.8 % (19-41); Mean Corp Hgb Conc 34.3 g/dL (32-36); Mean Corpuscular Hgb 29.5 pg (27.0-32.0); Mean Platelet Vol. 10.4 fl (6.2-12.0); Monocyte% 7.6 % (0-10); NRBC Flagged by Analyzer 0 % (0-5); Neutrophil # 12.03 X10^3/uL (2.7-7.7); Neutrophil % 83.5 % (47-70); Platelet Count 288 K/mm3 (150-450); RBC Distribution Width CV 13.6 % (11.6-14.6); RBC Distribution Width SD 42.8 fl (35.1-43.9); Red Blood Count 3.63 M/mm3 (4.2-5.4); White Blood Count 14.4 K/mm3 (4.4-11.0)
[2024-03-21 05:23] LABS: Anion Gap 10 (5-15); BUN 53 mg/dL (7-18); BUN/Creat Ratio 14.6 RATIO (10-20); Calcium,Total 8.3 mg/dL (8.5-10.1); Chloride 92 mmol/L (98-107); Creatinine, Serum 3.63 mg/dL (0.55-1.02); EST Glomerular Filtration Rate 13 mL/min (>60); Est Glom Filt Rate - Afr Amer 16 mL/min (>60); Estimated Creatinine Clearance 11.74 ml/min; Glucose 112 mg/dL (74-106); Phosphorus 2.4 mg/dL (2.5-4.9); Potassium 4.2 mmol/L (3.5-5.1); Sodium Level 126 mmol/L (136-145)
[2024-03-21] MEDS: Budesonide Respules 0.5 MG/2 ML AMPUL.NEB. INHALATION ×2 (07:24→19:57)
[2024-03-21] MEDS: Ipratropium/Albuterol Sulfate 3 ML AMPUL.NEB INHALATION ×2 (07:24→19:57)
--- NOTE | 2024-03-21 10:13 | PN.HOSP_ITS ---
Reason for Visit Reason for Visit: Diagnoses Urinary tract infection, site not specified (03/19/24) Subjective Subjective Patient seen still appears weak. Blood cultures positive for gram-negative rods final identification and sensitivities pending, urine cultures positive for ESBL E. coli patient was on ceftriaxone discontinued started patient on meropenem consult placed to ID Objective Data Objective Data Vital Signs: Vital Signs Temp Pulse Resp BP Pulse Ox O2 Del Method O2 Flow Rate 98.3 F 74 16 111/66 97 High Flow 3 03/21/24 03:09 03/21/24 07:24 03/21/24 07:24 03/21/24 03:09 03/21/24 07:24 03/21/24 07:24 03/21/24 07:24 Oxygen Flow Rate (L/min) 3 Oxygen Delivery Method High Flow Weight: 65.4 kg Body Mass Index (BMI) 24.6 Intake & Output: Intake and Output for Last 24 Hours 03/19/24 03/20/24 03/21/24 23:59 23:59 23:59 Intake Total 2170 / 2170 160 / 160 Balance 2170 / 2170 160 / 160 Lab / Micro Data 03/21/24 03:43 03/21/24 03:43 Labs: Laboratory Results - last 24 hr 03/21/24 03:43: WBC 14.4 H, RBC 3.63 L, Hgb 10.7 L, Hct 31.2 L, MCV 86.0, MCH 29.5, MCHC 34.3, RDW Std Deviation 42.8, RDW Coeff of Caroline 13.6, Plt Count 288, MPV 10.4, Immature Gran % (Auto) 1.000 H, Neut % (Auto) 83.5 H, Lymph % (Auto) 6.8 L, [place] % (Auto) 7.6, Eos % (Auto) 0.6, Baso % (Auto) 0.5, Absolute Neuts (auto) 12.0 H, Absolute Lymphs (auto) 0.98, Nucleated RBC % 0, Sodium 126 L, Potassium 4.2, Chloride 92 L, Carbon Dioxide 25.0, Anion Gap 10, BUN 53 H, C reatinine 3.63 H, Estim Creat Clear Calc 11.74, Est GFR (MDRD) Af Amer 16 L, Est GFR (MDRD) Non-Af 13 L, BUN/Creatinine Ratio 14.6, Glucose 112 H, Calcium 8.3 L, Phosphorus 2.4 L, Magnesium 2.0 Micro: Microbiology 03/19/24 19:13 Blood Culture (Wb) - No Site/Description Given Blood Culture - Preliminary GNR lactose chute tapper 03/19/24 15:16 Urine Catheter - Catheter Urine Culture - Preliminary Escherichia coli 03/19/24 14:00 Mucosa - Nose SARS-CoV-2, Influenza & RSV (PCR) - Final Physical Exam Narrative GENERAL: cooperative HEENT: Atraumatic; normocephalic EYES; Anicteric, Normal Conjunctiva NECK; supple, normal thyroid, RESPIRATORY: Diminished to auscultation CARDIOVASCULAR: Regular S1 S2, GI: soft, normoactive bowel sounds, : No Renal angle tenderness; EXTREMITIES: No edema, no clubbing, MUSCULOSKELETAL: no muscle wasting NEURO: Awake; no lateralizing signs. SKIN: No Rash PSYCH; Flat affect Assessment & Plan Assessment/Plan (1) Acute UTI: PLAN: Plan Patient is a 73-year-old lady who was admitted with confusion dizziness and lack of coordination. Workup did reveal presence of acute kidney injury and cystitis. Admitted to a monitored bed for further management 1. Acute metabolic encephalopathy ? Secondary to combination of acute kidney injury as well as acute cystitis ? 03/21/2024; patient level of sensorium improved 2. Acute cystitis ?Patient started on ceftriaxone urine culture sent ? 03/21/2024; Blood cultures positive for gram-negative rods final identification and sensitivities pending, urine cultures positive for ESBL E. coli patient was on ceftriaxone discontinued started patient on meropenem consult placed to ID 3. Acute kidney injury ? Superimposed on chronic kidney disease stage IIIb. Baseline creatinine 1.83 from 02/21/2024; creatinine on admission 4.01 patient started on IV fluid with subsequent monitoring of electrolytes ordered. Patient also underwent renal ultrasound result reviewed ? 03/21/2024 creatinine down to 3.60 4. Elevated troponin ? Secondary to demand ischemia patient admitted to monitored bed for subsequent eval 5. Hypertension ? Blood pressure controlled, home medications continued with dose adjustment as needed 6. Chronic hypoxic respiratory failure ? Secondary to COPD patient is on baseline home oxygen 7. Chronic hyponatremia ? Sodium level on admission was 125 up to 127 we will continue monitoring with daily BMPs 8. Dyslipidemia ?Patient is on statin therapy, continued at home dose 9. Anemia ? Secondary to chronic disorder monitoring H&H and transfuse if patient becomes symptomatic or hemoglobin falls below 7 10. DVT prophylaxis ? Subcu hep Time spent in the patient's overall evaluation,decision-making process, review of diagnostic data, adjustment of management, discussion with other providers, nursing nursing and ancillary staff involved in patient's care documentation, 50 minutes Charges/Coding Visit Charges Inpatient E&M: [id number] [facility] Hosp L3
[2024-03-21] MEDS: Furosemide 20 MG Tablet PO (10:32)
[2024-03-21] MEDS: Loratadine 10 MG Tablet PO (10:33)
[2024-03-21] MEDS: Potassium Chloride Oral Tablet 10 MEQ 20 MEQ PO (10:33)
[2024-03-21] MEDS: Metoprolol Tartrate 50 MG Tablet PO ×2 (10:33→20:59)
[2024-03-21] MEDS: Losartan Potassium 25 MG Tablet PO (10:34)
[2024-03-21] MEDS: Montelukast 10 MG Tablet PO (10:34)
[2024-03-21] MEDS: Ceftriaxone 1 GM/50 ML BAG IV (10:36)
[2024-03-21] MEDS: Meropenem 500 MG in 0.9% Normal Saline (50mL MB+) 50 ML 100 MG IV ×2 (11:26→20:59)
[2024-03-21] MEDS: 0.9% Saline Lock 10 ML Syringe IV ×2 (12:38→17:26)
--- NOTE | 2024-03-21 12:59 | PCM.CONS.GEN ---
Assessment & Plan Assessment/Plan (1) Bacteremia due to Gram-negative bacteria: (2) Sepsis: PLAN: ESBL ecoli (+) ucx, bcx with GNR. On meropenem now, Cr slowly improving. Renal u/s done, showed no stone/hydro/abscess. Will follow, thank you (3) Acute kidney injury superimposed on CKD: (4) Acute UTI: HPI Consult Data Date of Consult: 03/21/24 HPI Narrative Reason for Consultation: bacteremia HPI Narrative: TABATHA AUGUST, is a 73 F with h/o COPD on home O2, presented with several days of falls, weakness, some lower back pain. No new urinary sx. Developed associated fever and chills with nausea. Came to ED 2/3, admitted on ceftriaxone. Changed to meropenem, not feeling that much better this AM. Full ROS performed and neg except as noted above. [facility] Medical History Cardiomyopathy Obesity Essential hypertension Bradycardia with 41-50 beats per minute COPD (chronic obstructive pulmonary disease) HLD (hyperlipidemia) Home Medications ?Medication ?Instructions ?Recorded ?Last Taken ?Type albuterol sulfate 2.5 mg/3 mL 2.5 mg inhalation Q6H PRN PRN Sob 12/16/16 03/18/24 History (0.083 %) solution for nebulization &/Or Wheezing calcium 500 mg (as carbonate)-vit 1 each PO BID SUPPLEMENT 12/16/16 03/19/24 History D3 10 mcg (400 unit) chewable tablet hydrochlorothiazide 25 mg tablet 25 mg PO DAILY DIURETIC/WATER PILL 12/16/16 03/19/24 History metoprolol tartrate 50 mg tablet 50 mg PO BID BLOOD PRESSURE 12/16/16 03/19/24 History [id number]-[id number] 8 mg-folic 400 1 each PO DAILY SUPPLEMENT 12/16/16 03/19/24 History mcg-K 50 mcg-lutein 300 mcg tablet phenylephrine 5 1 each PO DAILY PRN COLD SYMPTOMS 12/16/16 03/19/24 History mg-dextromethorphan 10 mg-acetaminophen 325 mg capsule simvastatin 20 mg tablet 20 mg PO QHS CHOLESTEROL 12/16/16 03/18/24 History albuterol sulfate 90 mcg/actuation 90 mcg IH Q4H PRN PRN Sob &/Or 02/16/19 03/19/24 History aerosol inhaler Wheezing cetirizine 10 mg disintegrating 10 mg PO DAILY 02/16/19 03/19/24 History tablet fluticasone fur. 100 mcg-umeclid 1 each IH DAILY 02/16/19 03/19/24 History 62.5 mcg-vilant 25 mcg inhalat.powder furosemide 20 mg tablet 20 mg PO DAILY PRN EDEMA 02/16/19 03/16/24 History montelukast 10 mg tablet 10 mg PO DAILY 02/16/19 03/19/24 History losartan 25 mg tablet 25 mg PO DAILY #30 tabs 08/25/22 03/19/24 Rx tramadol 50 mg tablet 50 mg PO Q8H PRN Pain 3 days #9 02/24/24 03/19/24 Rx tabs acetaminophen 325 mg tablet 650 mg PO Q6H PRN Mild Pain (scale 03/19/24 03/19/24 History 0-3)/T>100.7 alendronate 70 mg tablet 70 mg PO TU 03/19/24 03/13/24 History potassium chloride 10 mEq 10 meq PO BID 03/19/24 03/19/24 History tablet,extended release(part/cryst) (Klor-Con M) Allergy/AdvReac Type Severity Reaction Status Date / Time atorvastatin (From Lipitor) Allergy Unknown Verified 03/19/24 13:45 lorazepam (From Ativan) Allergy Unknown Verified 03/19/24 13:45 mometasone furoate (From Allergy Unknown Verified 03/19/24 13:45 Nasonex) paroxetine (From Paxil) Allergy Unknown Verified 03/19/24 13:45 Sulfa (Sulfonamide Allergy Unknown Verified 03/19/24 13:45 Antibiotics) lisinopril AdvReac Mild Angioedema Verified 03/19/24 13:45 Family History Mother Lung disease Father Lung disease Surgical History History of partial hysterectomy History of lumpectomy Social History household members: spouse Smoking Status: Former smoker alcohol intake: never Physical Exam Const alert and no apparent distress General Appearance: cooperative HEENT normocephalic and head/scalp atraumatic Eyes PERRL and EOMs intact bilaterally Neck supple and No nodes Resp normal air movement and clear to auscultation bilaterally Cardio regular rate and regular rhythm GI soft to palpation, non-tender and non-distended Extremity General Extremity: Negative for edema Skin no rashes or lesions noted Neuro CN's II-XII intact bilaterally Lab / Micro Data Attestation: I reviewed the patient's lab results. 03/21/24 03:43 03/21/24 03:43 Labs: Laboratory Results - last 24 hr 03/21/24 03:43: WBC 14.4 H, RBC 3.63 L, Hgb 10.7 L, Hct 31.2 L, MCV 86.0, MCH 29.5, MCHC 34.3, RDW Std Deviation 42.8, RDW Coeff of Caroline 13.6, Plt Count 288, MPV 10.4, Immature Gran % (Auto) 1.000 H, Neut % (Auto) 83.5 H, Lymph % (Auto) 6.8 L, [place] % (Auto) 7.6, Eos % (Auto) 0.6, Baso % (Auto) 0.5, Absolute Neuts (auto) 12.0 H, Absolute Lymphs (auto) 0.98, Nucleated RBC % 0, Sodium 126 L, Potassium 4.2, Chloride 92 L, Carbon Dioxide 25.0, Anion Gap 10, BUN 53 H, Creatinine 3.63 H, Estim Creat Clear Calc 11.74, Est GFR (MDRD) Af Amer 16 L, Est GFR (MDRD) Non-Af 13 L, BUN/Creatinine Ratio 14.6, Glucose 112 H, Calcium 8.3 L, Phosphorus 2.4 L, Magnesium 2.0 Micro: Microbiology 03/19/24 19:13 Blood Culture (Wb) - No Site/Description Given Blood Culture - Preliminary GNR lactose clinic charge nurse 03/19/24 15:16 Urine Catheter - Catheter Urine Culture - Preliminary Escherichia coli
[2024-03-21] MEDS: Potassium Chloride Oral Tablet 10 MEQ PO (17:19)
[2024-03-21] MEDS: Simvastatin 20 MG Tablet PO (20:59)
[2024-03-22] VITALS (7 sets, daily range): BP systolic 119–137; BP diastolic 61–65; PULSE 99–109; RESP 18–20; TEMP 36.3–37; O2SAT 86–100; BMI 24.5
[2024-03-22] MEDS: Heparin Injection (Vial) 5,000 UNIT/ML VIAL 5000 UNIT SC (05:26)
[2024-03-22] MEDS: Ipratropium/Albuterol Sulfate 3 ML AMPUL.NEB INHALATION ×2 (07:00→12:36)
[2024-03-22] MEDS: Budesonide Respules 0.5 MG/2 ML AMPUL.NEB. INHALATION (07:00)
[2024-03-22 07:43] LABS: Absolute Lymphocyte Count 1.26 X10^3/uL (0.83-4.51); Absolute Neutrophil Count 11.7 X10^3/uL (2.0-7.7); Basophil# 0.07 X10^3/uL; Basophil% 0.5 % (0-1); Eosinophil# 0.09 X10^3/uL; Eosinophils% 0.6 % (0-5); Hematocrit 32.3 % (37-47); Hemoglobin 11.1 g/dL (12.0-15.0); Lymphocyte # 1.26 X10^3/ul (0.83-4.51); Lymphocyte % 8.7 % (19-41); Mean Corp Hgb Conc 34.4 g/dL (32-36); Mean Corpuscular Hgb 28.9 pg (27.0-32.0); Mean Corpuscular Volume 84.1 fL (81-99); Monocyte% 7.6 % (0-10); NRBC Flagged by Analyzer 0 % (0-5); Neutrophil # 11.68 X10^3/uL (2.7-7.7); Neutrophil % 80.7 % (47-70); Platelet Count 309 K/mm3 (150-450); RBC Distribution Width CV 14.1 % (11.6-14.6); RBC Distribution Width SD 43.3 fl (35.1-43.9); Red Blood Count 3.84 M/mm3 (4.2-5.4); White Blood Count 14.5 K/mm3 (4.4-11.0)
[2024-03-22 08:02] LABS: Anion Gap 13 (5-15); BUN 54 mg/dL (7-18); BUN/Creat Ratio 15.7 RATIO (10-20); Calcium,Total 9.2 mg/dL (8.5-10.1); Chloride 90 mmol/L (98-107); Creatinine, Serum 3.44 mg/dL (0.55-1.02); EST Glomerular Filtration Rate 14 mL/min (>60); Est Glom Filt Rate - Afr Amer 17 mL/min (>60); Estimated Creatinine Clearance 12.39 ml/min; Glucose 95 mg/dL (74-106); Potassium 4.1 mmol/L (3.5-5.1); Sodium Level 127 mmol/L (136-145)
[2024-03-22] MEDS: Meropenem 500 MG in 0.9% Normal Saline (50mL MB+) 50 ML 100 MG IV (09:04)
[2024-03-22] MEDS: 0.9% Saline Lock 10 ML Syringe IV ×2 (09:05→11:03)
[2024-03-22] MEDS: Losartan Potassium 25 MG Tablet PO (09:06)
[2024-03-22] MEDS: Metoprolol Tartrate 50 MG Tablet PO (09:06)
[2024-03-22] MEDS: Potassium Chloride Oral Tablet 10 MEQ 20 MEQ PO (09:06)
[2024-03-22] MEDS: Furosemide 20 MG Tablet PO (09:06)
[2024-03-22] MEDS: Montelukast 10 MG Tablet PO (09:07)
--- NOTE | 2024-03-22 11:02 | PCM.PN.ID ---
Physical Exam Narrative Feeling better, wants to go home. No fever, no abd pain. Const alert and no apparent distress General Appearance: cooperative Resp normal air movement and clear to auscultation bilaterally Cardio regular rate and regular rhythm GI soft to palpation, non-tender and non-distended Skin no rashes or lesions noted ID ID: Route of nutrition/ use of supplements: [] Nutritional Intake: [] IV Site: [] Lynn Catheter: [] Assessment & Plan Assessment/Plan (1) Bacteremia due to Gram-negative bacteria: (2) Sepsis: PLAN: ESBL ecoli (+) ucx, bcx with same. On meropenem now, Cr slowly improving. Renal u/s done, showed no stone/hydro/abscess. Ok for home with one week IM ertapenem, wrote rx, ordered lab for next week. Gina field case manager Will follow prn (3) Acute kidney injury superimposed on CKD: (4) Acute UTI:
[2024-03-22] MEDS: Ertapenem Sod 0.5 GM in 0.9% Normal Saline (50mL Bag) 50 ML IV (11:04)
--- NOTE | 2024-03-22 11:31 | DS.PCM_ITS ---
Providers Date of Admission: 03/19/24 Date of Discharge: 03/22/24 Primary Care Physician: Dr. Phyllis Smith MD Consultations 03/21/24 10:07 Consult: Infectious Disease Routine Consulting Provider: Arron Buitraog Reason for Consult: ESBL E coli EMERGENT Consult: No Notified: Yes Date Notified: 03/21/24 Time Notified: 10:07 Method of Notification: Text Reason For Visit: ATAXIA, TYPE II CT, NAVID Diagnosis Discharge Diagnosis (1) Bacteremia due to Gram-negative bacteria: Status: Acute (2) Sepsis: Status: Acute Code(s): A41.9 - Sepsis, unspecified organism (3) Acute kidney injury superimposed on CKD: Status: Chronic Code(s): N17.9 - Acute kidney failure, unspecified; N18.9 - Chronic kidney disease, unspecified (4) Acute UTI: Status: Acute Code(s): N39.0 - Urinary tract infection, site not specified Plan Patient is a 73-year-old lady who was admitted with confusion dizziness and lack of coordination. Workup did reveal presence of acute kidney injury and cystitis. Admitted to a monitored bed for further management 1. Acute metabolic encephalopathy ? Secondary to combination of acute kidney injury as well as acute cystitis ? 03/21/2024; patient level of sensorium improved 2. Acute cystitis ?Patient started on ceftriaxone urine culture sent ? 03/21/2024; Blood cultures positive for gram-negative rods final identification and sensitivities pending, urine cultures positive for ESBL E. coli patient was on ceftriaxone discontinued started patient on meropenem consult placed to ID ? Patient was seen in consultation by Dr. Buitrago with ID recommended for patient to be discharged home with ertapenem 3. Acute kidney injury ? Superimposed on chronic kidney disease stage IIIb. Baseline creatinine 1.83 from 02/21/2024; creatinine on admission 4.01 patient started on IV fluid with subsequent monitoring of electrolytes ordered. Patient also underwent renal ultrasound result reviewed ? 03/21/2024 creatinine down to 3.60 4. Elevated troponin ? Secondary to demand ischemia patient admitted to monitored bed for subsequent eval 5. Hypertension ? Blood pressure controlled, home medications continued with dose adjustment as needed 6. Chronic hypoxic respiratory failure ? Secondary to COPD patient is on baseline home oxygen 7. Chronic hyponatremia ? Sodium level on admission was 125 up to 127 we will continue monitoring with daily BMPs 8. Dyslipidemia ?Patient is on statin therapy, continued at home dose 9. Anemia ? Secondary to chronic disorder monitoring H&H and transfuse if patient becomes symptomatic or hemoglobin falls below 7 10. DVT prophylaxis ? Subcu hep Time spent in the patient's overall evaluation,decision-making process, review of diagnostic data, adjustment of management, discussion with other providers, nursing nursing and ancillary staff involved in patient's care documentation, 35 minutes Medications at Discharge Home Medications albuterol sulfate 2.5 mg/3 mL (0.083 %) solution for nebulization 2.5 mg inhalation Q6H PRN PRN Sob &/Or Wheezing 12/16/16 calcium 500 mg (as carbonate)-vit D3 10 mcg (400 unit) chewable tablet 1 each PO BID SUPPLEMENT 12/16/16 hydrochlorothiazide 25 mg tablet 25 mg PO DAILY DIURETIC/WATER PILL 12/16/16 metoprolol tartrate 50 mg tablet 50 mg PO BID BLOOD PRESSURE 12/16/16 jzekjszh-ydff-wqcl 8 mg-folic 400 mcg-K 50 mcg-lutein 300 mcg tablet 1 each PO DAILY SUPPLEMENT 12/16/16 phenylephrine 5 mg-dextromethorphan 10 mg-acetaminophen 325 mg capsule 1 each PO DAILY PRN COLD SYMPTOMS 12/16/16 simvastatin 20 mg tablet 20 mg PO QHS CHOLESTEROL 12/16/16 albuterol sulfate 90 mcg/actuation aerosol inhaler 90 mcg IH Q4H PRN PRN Sob &/Or Wheezing 02/16/19 cetirizine 10 mg disintegrating tablet 10 mg PO DAILY 02/16/19 fluticasone fur. 100 mcg-umeclid 62.5 mcg-vilant 25 mcg inhalat.powder 1 each IH DAILY 02/16/19 furosemide 20 mg tablet 20 mg PO DAILY PRN EDEMA 02/16/19 montelukast 10 mg tablet 10 mg PO DAILY 02/16/19 losartan 25 mg tablet 25 mg PO DAILY #30 tabs 08/25/22 tramadol 50 mg tablet 50 mg PO Q8H PRN Pain 3 days #9 tabs 02/24/24 acetaminophen 325 mg tablet 650 mg PO Q6H PRN Mild Pain (scale 0-3)/T>100.7 03/19/24 alendronate 70 mg tablet 70 mg PO TU 03/19/24 potassium chloride 10 mEq tablet,extended release(part/cryst) (RaCon M) 10 meq PO BID 03/19/24 ertapenem 1 gram solution for injection 0.5 g IM DAILY 7 days #7 ea 03/22/24 Physical Exam Narrative GENERAL: cooperative HEENT: Atraumatic; normocephalic EYES; Anicteric, Normal Conjunctiva NECK; supple, normal thyroid, RESPIRATORY: Diminished to auscultation CARDIOVASCULAR: Regular S1 S2, GI: soft, normoactive bowel sounds, : No Renal angle tenderness; EXTREMITIES: No edema, no clubbing, MUSCULOSKELETAL: no muscle wasting NEURO: Awake; no lateralizing signs. SKIN: No Rash PSYCH; Flat affect Weight / BMI Weight Weight: 65.1 kg Body Mass Index (BMI) 24.5 ABG / Lab / Microbiology Data 03/22/24 06:45 03/22/24 06:45 Laboratory: Laboratory Results - last 24 hr 03/22/24 06:45: WBC 14.5 H, RBC 3.84 L, Hgb 11.1 L, Hct 32.3 L, MCV 84.1, MCH 28.9, MCHC 34.4, RDW Std Deviation 43.3, RDW Coeff of Caroline 14.1, Plt Count 309, MPV 10.0, Immature Gran % (Auto) 1.900 H, Neut % (Auto) 80.7 H, Lymph % (Auto) 8.7 L, Ponce % (Auto) 7.6, Eos % (Auto) 0.6, Baso % (Auto) 0.5, Absolute Neuts (auto) 11.7 H, Absolute Lymphs (auto) 1.26, Nucleated RBC % 0, Sodium 127 L, Potassium 4.1, Chloride 90 L, Carbon Dioxide 24.0, Anion Gap 13, BUN 54 H, C reatinine 3.44 H, Estim Creat Clear Calc 12.39, Est GFR (MDRD) Af Amer 17 L, Est GFR (MDRD) Non-Af 14 L, BUN/Creatinine Ratio 15.7, Glucose 95, Calcium 9.2 Microbiology: Microbiology 03/19/24 19:13 Blood Culture (Wb) - No Site/Description Given Blood Culture - Final ESBL Escherichia coli 03/19/24 15:16 Urine Catheter - Catheter Urine Culture - Final ESBL Escherichia coli 03/19/24 14:00 Mucosa - Nose SARS-CoV-2, Influenza & RSV (PCR) - Final D/C Instructions Discharge Diet: No restrictions Discharge Activity: Return to Normal Activity Call your doctor if you observe: Fever of 101 or Higher, Shortness of breath, Fainting spells and Chest pain DC O2, CPAP, BIPAP Needs RN Home O2 Qualification: Home O2 Qualification: Is the patient on home oxygen Yes 03/22/24 12:22 Home O2 Qualification: AT REST 1-Pulse Ox at rest 86 03/22/24 12:22 1- Oxygen flow rate at rest 2 03/22/24 12:22 2-Pulse Ox at rest 92 03/22/24 12:22 2- Oxygen flow rate at rest 3 03/22/24 12:22 Home O2 Qualification: WITH AMBULATION 1- Pulse Ox with ambulation 86 03/22/24 12:22 1- Oxygen Flow Rate with 4 03/22/24 12:22 ambulation 2- Pulse Ox with ambulation 93 03/22/24 12:22 2- Oxygen Flow Rate with 5 03/22/24 12:22 ambulation Home O2 Discharge instructions: Yes Type of respiratory needs?: Oxygen Oxygen frequency: Continuous (3) Continuous oxygen liters per minute: 3 DC home with Oxygen: Yes Home O2 MD Review: I have reviewed the oxygen testing, and the patient qualifies for home oxygen equipment and portability. The patient is mobile in the home and the community. Meaningful Use Info Meaningful Use Meaningful Use Diagnoses (Choose all that apply): None applicable Ischemic Stroke Statin Dosing Therapy Reference: STATIN DOSE THERAPY REFERENCE: * Patients > 75 years receive moderate or high dose statin therapy. * Patients 75 years or YOUNGER should receive HIGH intensity statin dose unless contraindicated. You will be required to document reason for non-treatment if statin daily dose does not meet guidelines. HIGH DOSE STATIN THERAPY DAILY Atorvastatin > than or = to 40 mg Rosuvastatin > than or = to 20 mg Amlodipine + Atorvastatin > than or = to 2.5/40 mg Ezetimibe + Simvastatin 10/80 mg Simvastatin 80mg Discharge Plan Admission Admit Date/Time: 03/19/24 17:04 Attending Provider: Hector Oseguera Primary Care Provider: Phyllis Smith Consulting Providers: Camelia Otto; Arron Buitrago Discharge Orders/Prescriptions Prescriptions: New ertapenem 1 gram recon soln 0.5 g IM DAILY 7 Days Qty: 7 0RF Rx Instructions: dx: esbl ecoli bacteremia. Mix with lidocaine. BMP, CBC, and LFT on 03/26/24; fax to [phone]. Continued albuterol sulfate 2.5 MG/3 ML solution for nebulization 2.5 mg INHALATION Q6H PRN PRN (Reason: Sob &/Or Wheezing) simvastatin 20 MG tablet 20 mg PO QHS metoprolol tartrate 50 MG tablet 50 mg PO BID hydrochlorothiazide 25 MG tablet 25 mg PO DAILY ddlnfjafofrzz-HY-ichqcksjherhs 1 EACH capsule 1 each PO DAILY PRN (Reason: COLD SYMPTOMS) calcium carbonate-vitamin D3 1 EACH tablet,chewable 1 each PO BID wwpftckn-yjo-vpsv-FA-vit K-lut 1 EACH tablet 1 each PO DAILY montelukast 10 MG tablet 10 mg PO DAILY furosemide 20 MG tablet 20 mg PO DAILY PRN (Reason: EDEMA) albuterol sulfate 18 GM HFA aerosol inhaler 90 mcg IH Q4H PRN PRN (Reason: Sob &/Or Wheezing) Patient Comments: INHALE 2 PUFFS INSTRUCTED EVERY 4 HOURS NEEDED FOR WHEEZING/SHORTNESS OF BREATH. cetirizine 10 MG tablet,disintegrating 10 mg PO DAILY [id number]-klnhfbbhr-bomvvarr 1 EACH blister with device 1 each IH DAILY losartan 25 mg tablet 25 mg PO DAILY Qty: 30 0RF tramadol 50 mg tablet 50 mg PO Q8H PRN (Reason: Pain) 3 Days Qty: 9 0RF potassium chloride [Klor-Con M10] 10 mEq tablet,ER particles/crystals 10 meq PO BID Rx Instructions: TWO IN THE MORNING ONE IN THE EVENING alendronate 70 mg tablet 70 mg PO TU Patient Comments: PLEASE SEE ATTACHED FOR DETAILED DIRECTIONS acetaminophen 325 MG tablet 650 mg PO Q6H PRN Other Ambulatory Orders: Basic Metabolic Profile (BMP) (Routine) Timeframe: [id number] Facility: [facility] - Location: Laboratory Ordered By: Dr. Hector Oseguera Referrals / Follow Up: [facility] [Provider Group] - 03/23/24 11:00 am (Please report to [facility] for antibiotic injection. ) Phyllis Smith MD [Primary Care Provider] - 03/26/24 11:00 am Disposition Disposition (needs filled in before D/C Order can be placed): Home Health Service Charges/Coding Visit Charges Inpatient E&M: 41217 Disch Hosp >30min
--- NOTE | 2024-03-22 13:03 | CASEMGMT ---
Patient has order for discharge. RN CARO received IM ertapenem script for at discharge. RN CM into discuss antibiotic and patient prefers to come to infusion center for injection. RN CARO updated that patient will need increase in home oxygen, script received. DAWOOD ELIZONDO called [facility] Infusion Center, appointment made for tomorrow at 11am. DAWOOD ELIZONDO updated discharge plan and added appt to discharge paperwork. DAWOOD ELIZONDO faxed script to [facility] Infusion Center. RN CARO updated patient regarding appointment. Patient has oxygen tank for at discharge. Patient had no further questions or concerns.
== END 2024-03-22 13:33 | disposition home health service (06) | DRG 689 ==
LOC: ED 14:53 → PCU 16:28
PROVIDERS: Admitting Provider Internal Medicine; Emergency Provider Emergency Medicine; PCP Internal Medicine; Referring Provider Internal Medicine; Visit Provider Internal Medicine
DX: N30.00 Acute cystitis without hematuria (principal); G93.41 Metabolic encephalopathy; A41.89 Other specified sepsis; I24.89 Other forms of acute ischemic heart disease; J96.11 Chronic respiratory failure with hypoxia; N17.9 Acute kidney failure, unspecified; E87.1 Hypo-osmolality and hyponatremia; N18.32 Chronic kidney disease, stage 3b; J44.9 Chronic obstructive pulmonary disease, unspecified; I12.9 Hypertensive chronic kidney disease with stage 1 through stage 4 chronic kidney disease, or unspecified chronic kidney disease; E78.5 Hyperlipidemia, unspecified; Z90.710 Acquired absence of both cervix and uterus; R27.0 Ataxia, unspecified; Z87.891 Personal history of nicotine dependence; Z79.891 Long term (current) use of opiate analgesic; B96.20 Unspecified Escherichia coli [E. coli] as the cause of diseases classified elsewhere; R29.6 Repeated falls
CPT/HCPCS: 36415; 70450; 71046; 72125; 76770; 80048; 80053; 81001; 82436; 82570; 83605; 83690; 83735; 84100; 84133; 84300; 84484; 84540; 85025; 85610; 85730; 87040; 87086; 87088; 87186; 87631; 93005; 94640; 94668; 97161; 97166; 99284; J2185; A4216

== ENCOUNTER → 2024-04-27 | Outpatient (CLI) | payer MEDICARE, OTHER, SELFPAY ==
[2024-04-27 11:39] LABS: Absolute Lymphocyte Count 2.27 X10^3/uL (0.83-4.51); Absolute Neutrophil Count 7.8 X10^3/uL (2.0-7.7); Basophil# 0.13 X10^3/uL; Basophil% 1.2 % (0-1); Eosinophil# 0.34 X10^3/uL; Hematocrit 35.2 % (37-47); Hemoglobin 11.8 g/dL (12.0-15.0); Lymphocyte # 2.27 X10^3/ul (0.83-4.51); Lymphocyte % 20.1 % (19-41); Mean Corp Hgb Conc 33.5 g/dL (32-36); Mean Corpuscular Hgb 29.5 pg (27.0-32.0); Mean Platelet Vol. 9.7 fl (6.2-12.0); Monocyte# 0.68 X10^3/uL; NRBC Flagged by Analyzer 0 % (0-5); Neutrophil # 7.81 X10^3/uL (2.7-7.7); Neutrophil % 69.3 % (47-70); Platelet Count 386 K/mm3 (150-450); RBC Distribution Width CV 14.6 % (11.6-14.6); RBC Distribution Width SD 46.8 fl (35.1-43.9); White Blood Count 11.3 K/mm3 (4.4-11.0)
[2024-04-27 12:17] LABS: ALB/GLOB Ratio 0.9 RATIO (0.9-2.4); AST(SGOT) 27 U/L (<=31); Alanine Aminotransfer ALT/SGPT 14 U/L (<=34); Albumin, Serum 3.9 g/dL (3.4-4.8); Alkaline Phosphatase 96 U/L (35-104); Anion Gap 12 (5-15); BUN 28 mg/dL (4-19); BUN/Creat Ratio 12.1 RATIO (10-20); Calcium,Total 10.3 mg/dL (7.6-11.0); Carbon Dioxide 26.1 mmol/L (21.0-32.0); Chloride 93 mmol/L (98-108); Cholesterol 198 mg/dL (<=200); Creatinine, Serum 2.29 mg/dL (0.70-1.20); EST Glomerular Filtration Rate 22 (>60); Globulin 4.3 g/dL (2.2-4.2); Glucose 113 mg/dL (70-99); High Density Lipoprotein 56 mg/dL; Low Density Lipoprotein Calc. 120 mg/dL; Potassium 4.4 mmol/L (3.3-5.1); Protein, Total 8.2 g/dL (5.9-8.4); Sodium Level 131 mmol/L (133-145); Total Bilirubin 0.31 mg/dL (0.00-1.30); Triglycerides 110 mg/dL; Very Low Density Lipoprotein 22 mg/dL (5-40); cholesterol:hdl ratio screen 3.51
== END | disposition home or self-care (01) ==
PROVIDERS: PCP Internal Medicine; Referring Provider Physician Assistant Medical; Visit Provider Physician Assistant Medical
DX: E78.5 Hyperlipidemia, unspecified (principal); I42.9 Cardiomyopathy, unspecified; R06.02 Shortness of breath
CPT/HCPCS: 36415; 80053; 80061; 85025